=== PATIENT | female | born 1940 | race Caucasian/White ===

== ENCOUNTER → 2017-12-30 14:34 | Outpatient (CLI) | payer MEDICARE, OTHER, SELFPAY ==
[2017-12-30 18:20] LABS: CRP 9.65 mg/L (0.0-3.0)
[2018-01-01 16:09] LABS: Endomysial Antibody IgA Negative (Negative)
[2018-01-02 12:14] LABS: Immunoglobulin A 310 mg/dL (64-422); t-Transglutaminase IgA <2 U/mL (0-3)
== END ==
PROVIDERS: Family Provider Family Medicine; PCP Family Medicine; Visit Provider Internal Medicine Gastroenterology
DX: R19.7 Diarrhea, unspecified (principal)
CPT/HCPCS: 36415; 82784; 83516; 86140; 86255

== ENCOUNTER → 2017-12-31 11:38 | Outpatient (CLI) | payer MEDICARE, OTHER, SELFPAY ==
[2018-01-03 11:09] LABS: Fats, Neutral Normal (.); Fats, Total Normal (.)
== END ==
PROVIDERS: Family Provider Family Medicine; PCP Family Medicine; Visit Provider Urology
DX: R19.7 Diarrhea, unspecified (principal)
CPT/HCPCS: 82705

== ENCOUNTER 2018-02-16 02:35 | Inpatient (IN) | payer MEDICARE, OTHER, SELFPAY ==
[2018-02-16] VITALS (13 sets, daily range): BP systolic 139–204; BP diastolic 60–92; PULSE 70–111; RESP 13–24; TEMP 36.7–37.3; O2SAT 91–98; BMI 21.4; BMI 21.1; BMI 21.2
--- NOTE | 2018-02-16 02:53 | CT_ITS ---
STUDY: CT ABDOMEN AND PELVIS WITH CONTRAST REASON FOR EXAM: Female, 77 years old. Lower quadrant pain, vomiting and diarrhea. RADIATION DOSAGE (If Supplied By Facility): CTDIvol = ( 16.02 ) mGy, DLP = ( 1616.89 ) mGycm TECHNIQUE: Transaxial images were obtained from the dome of the diaphragm to the symphysis pubis without oral contrast. 75ML ml of Isovue 300 contrast was administered. Sagittal and coronal images were reconstructed. Individualized dose optimization techniques were used for this CT. COMPARISON: February 16, 2014. FINDINGS: Bilateral lower lobe bronchiectasis. The visualized portions of the heart are within normal limits. Normal liver. There are surgical clips in the gallbladder fossa consistent with a prior cholecystectomy. Normal spleen. Normal pancreas. Normal bilateral adrenal glands. Multiple renal cysts bilaterally noted previously. 2 mm nonobstructing inferior pole right renal calculus. Normal visualized stomach. Normal small intestine. Wall thickening involving a 11 cm segment of the mid sigmoid colon left hemipelvis. A few diverticuli are present. There may be mild pericolonic inflammatory changes. No significant change in 3.8 x 3.1 cm soft tissue mass region of the anus. The appendix is visualized and appears normal. There is diffuse atherosclerotic calcification of the abdominal aorta, without a demonstrated aneurysm. Normal inferior vena cava. Normal retroperitoneum. No intra-abdominal free air. Normal urinary bladder. Uterus absent compatible with hysterectomy. No adnexal masses seen. Normal abdominal wall. Posterior lumbar fusion L4-5. Grade 1 anterolisthesis L4 on L5. Degenerative changes of the lumbar spine. CT/Abdomen/Pelvis W IV Cont ONLY IMPRESSION: Acute sigmoid diverticulitis. No perforation. Recommend continued follow-up to exclude underlying mass. Bilateral renal cysts noted previously. Small nonobstructing inferior pole right renal calculus. Bilateral lower lobe bronchiectasis. Electronically Signed: Antonio Hardin MD at 5:16 EDT , Service support ,
--- NOTE | 2018-02-16 03:00 | ED.DCSUM_ITS ---
- ER Visit Summary Date of Service: 02/16/18 Chief Complaint: Nausea, vomiting and diarrhea since Friday History of Present Illness: The patient is a 77 F 3 of end-stage renal disease and receives dialysis Friday. Patient states that on Friday she started having nausea, vomiting and diarrhea. Denies fever but she has had chills. Denies dysuria. Denies melena. States she has had some left lower quadrant abdominal pain. She has previously had a prior cholecystectomy and hysterectomy. She denies any abdominal trauma. Physical Examination: Older female accompanied by her . Vital signs are stable and afebrile. H EENT exam dry mucous members. Neck nontender. Lungs clear to auscultation bilaterally. Heart regular rate rhythm no murmur. Chest nontender. Abdomen is soft nondistended normal bowel sounds. No peritoneal signs. No pulsatile mass. Her left lower quadrant and left lower abdomen is have tenderness to palpation. There is no hernias or masses. No pulsatile mass. Both the right upper right lower quadrant unremarkable. She is moving all 4 extremities. The neurovascular intact. Back exam is nontender. Neurologically she is awake alert without focal motor deficits. Test Results: EKG sinus rhythm rate 81 no acute abnormality. CBC shows elevated white count of 18.5 with an H&H of 1135. Electrolytes are unremarkable with a gap of 11 she does have end-stage renal disease dialysis her creatinine 6.51. Liver enzymes are normal. Lipase is normal. A urinalysis is ordered she has been unable to give us urine as of this time. CT abdomen and pelvis with IV contrast shows acute sigmoid diverticulitis this is consistent with where her pain is and her elevated white count. This is also consistent with her physical exam. Emergency Department Course and Treatment: Patient will be treated a liter of normal saline due to dehydration. Zofran for nausea morphine for pain. Labs will be obtained. Along with a CT of her abdomen. Treatment Plan: Multiple repeat exams. The patient is doing better after 1 L of normal saline. IV morphine and 2 dosages of Zofran. I spoke at length with her and her and the hospitalist and she will be admitted. Disposition: Admission Impression: Acute abdominal pain with nausea, vomiting and diarrhea secondary to acute sigmoid diverticulitis History of end-stage renal disease with dialysis. This note was generated with [email or web address] software. It may contain incorrect words, spelling, and punctuation that were not noted in review of the chart prior to signing ED Disposition - Plan for ED Patient: Chief Complaint: Nausea/Vomiting/Diarrhea Referrals: Omar Short MD [Primary Care Provider] -
[2018-02-16] MEDS: 0.9% Normal Saline 1,000 ML 1000 ML IV (03:03)
[2018-02-16] MEDS: Ondansetron 4 MG/2 ML Vial IV ×3 (03:05→17:36)
[2018-02-16] MEDS: Morphine 4 MG/ML Syringe IV ×3 (03:06→22:20)
[2018-02-16 03:10] LABS: Absolute Lymphocyte Count 1.16 X10^3/ul (0.83-4.51); Absolute Neutrophil Count 15.9 X10^3/uL (2.0-7.7); Basophil# 0.04 X10^3/uL; Basophil% 0.2 % (0-1); Eosinophil# 0.23 X10^3/uL; Eosinophils% 1.2 % (0-5); Hematocrit 35.3 % (37-47); Hemoglobin 11.5 g/dl (12.0-15.0); Lymphocyte # 1.16 X10^3/ul (4.0); Lymphocyte % 6.3 % (19-41); Mean Corp Hgb Conc 32.6 g/gl (32-36); Mean Corpuscular Hgb 33.8 pg (27.0-32.0); Mean Corpuscular Volume 103.8 fL (81-99); Mean Platelet Vol. 9.5 fl (6.2-12.0); Neutrophil # 15.87 X10^3/uL (2.7-7.7); Platelet Count 168 K/mm3 (150-450); RBC Distribution Width CV 14.4 % (11.6-14.6); RBC Distribution Width SD 53.6 fl (35.1-43.9); White Blood Count 18.5 K/mm3 (4.4-11.0)
[2018-02-16 03:17] LABS: POSITIVE COUNT NO; POSITIVE DIFFERENTIAL NO; POSITIVE MORPHOLOGY NO
[2018-02-16 03:19] LABS: BUN 57 mg/dL (7-18); Creatinine, Serum 6.51 mg/dL (0.55-1.02); Estimated Creatinine Clearance 7.04 ml/min; Glucose 124 mg/dL (74-106)
[2018-02-16 03:20] LABS: AST(SGOT) 12 U/L (15-37); Alanine Aminotransfer ALT/SGPT 8 U/L (13-56); Albumin, Serum 2.7 g/dL (3.2-5.0); Alkaline Phosphatase 64 U/L (45-117); Anion Gap 11 (5-15); BUN/Creat Ratio 8.8 RATIO (10-20); Bilirubin, Direct 0.09 mg/dL (0.00-0.30); Calcium,Total 8.9 mg/dL (8.5-10.1); Chloride 103 mmol/L (98-107); EST Glomerular Filtration Rate 7 mL/min (>60); Est Glom Filt Rate - Afr Amer 8 mL/min (>60); Globulin 3.8 g/dL (2.2-4.2); Lipase 42 U/L (73-393); Potassium 4.9 mmol/L (3.5-5.1); Protein, Total 6.5 g/dL (6.4-8.2); Sodium Level 140 mmol/L (136-145)
--- NOTE | 2018-02-16 04:36 | EKG12_ITS ---
Test Reason : NAUSEA/VOMITING Blood Pressure : / mmHG Vent. Rate : 081 BPM Atrial Rate : 081 BPM P-R Int : 200 ms QRS Dur : 098 ms QT Int : 376 ms P-R-T Axes : 027 -25 070 degrees QTc Int : 436 ms Normal sinus rhythm Normal ECG Confirmed by BUTCH JEAN, MARILYN ([id number]), technical writer and editor EMILY NUNEZ ([id number] on 02/18/2018 4:00:27 PM Referred By: CARLENE Confirmed By:MARILYN RAE MD
[2018-02-16] MEDS: Ciprofloxacin 400 MG/200 ML BAG 200 MG IV (05:39)
--- NOTE | 2018-02-16 06:02 | HP.PCM_ITS ---
Problem List (1) Diverticulitis Status: Acute (2) Diarrhea Status: Acute (3) ESRD (end stage renal disease) Status: Acute History of Present Illness Date of Admission: 02/16/18 Chief Complaint: Diverticulitis The patient is a 77 year old female w/ h/o HTN and ESRD, on HD MWF admitted for diverticulitis. She was started on antibiotic in the last several days. She developed diarrhea following the antibiotic use. Nothing made the diarrhea better or worse. She would have multiple BMs a day. No melena or bright red blood per rectum. She would also have left lower quadrant abdominal pain. Alexander is sharp and constant. Pain is intermittent and started yesterday. Pain would last for hours. She developed nausea and vomiting. She is unable to keep anything down in the past few hours. She came to the ED for further evaluation. Past Medical History Allergies sulfamethoxazole [From Bactrim] Allergy (Verified 02/16/18 02:36) Swelling trimethoprim [From Bactrim] Allergy (Verified 02/16/18 02:36) Swelling Sulfa (Sulfonamide Antibiotics) Adverse Reaction (Verified 02/16/14 09:47) Angioedema Home Medications: Ambulatory Orders Medication Instructions Recorded Allopurinol [Zyloprim] 150 mg PO DAILY 02/16/14 Amlodipine [Norvasc] 10 mg PO DAILY 02/16/14 Aspirin 81 mg PO DAILY 02/16/14 B Complex W-C No.20/Folic Acid 1 mg PO MOWEFR 02/16/14 [Nephrocaps Softgel] Irbesartan [Avapro] 300 mg PO DAILY 02/16/14 Magnesium 64 mg PO DAILY 02/16/14 Metoprolol Tartrate [Lopressor 100 mg PO BID 02/16/14 (Beta Tacho)] Rosuvastatin Calcium [Crestor] 10 mg PO DAILY 02/16/14 Sevelamer Carbonate [Renvela] 0.8 gm PO TID 02/16/14 predniSONE tablet 5 mg PO DAILY 02/16/14 Carvedilol [Coreg] 25 mg PO BID 02/16/18 hydrALAZINE [Apresoline] 50 mg PO TID 02/16/18 Surgical History: cholecystectomy, hysterectomy, - [employer] History: No pertinent [employer] history Lives: Spouse/ Significant Other Smoking Status: Never smoker Alcohol: None Drugs: None - *Family History Maternal History Items: No pertinent history Review of Systems Constitutional: Denies: Chills, Fever, Weight Change HEENT: Denies: Head Aches, Sinus Congestion, Sinus Drainage Cardiovascular: Denies: Chest Pain, Palpitations Respiratory: Denies: Cough, Shortness of breath at rest, Sputum production Gastrointestinal: Reports: Abdominal Pain, Nausea, Vomiting Genitourinary: Denies: Dysuria Musculoskeletal: Denies: Joint Pain, Joint Tenderness Skin: Denies: Rash, Wounds Neurological: Denies: Numbness, Tingling, Focal weakness Psychiatric: Denies: Anxiety, Depression, Homicidal Ideations, Suicidal Ideations Hematologic/ Lymphatic: Denies: Easy Bruising, Easy Bleeding VTE Information - Inpt Only VTE Present on Admission: No VTE Mechan Device Prophylaxis: SCD's VTE Pharm Prophylaxis ordered?: Yes Patient Problems: Active and Suspected Problems Diverticulitis (Acute) Diarrhea (Acute) ESRD (end stage renal disease) (Acute) - Physical Exam General: Alert, Oriented x3, Cooperative HEENT: Atraumatic, PERRLA, EOMI, Normocephalic Neck: Supple, No JVD, Negative Carotid Bruits Lungs: Clear to auscultation, Normal air movement Cardiovascular: Regular rate, No murmurs Abdomen: Bowel Sounds Present, Soft, Non Tender Extremities: No edema, Capillary Refill Less than 3 Seconds Skin: No rashes, No breakdown Musculoskeletal: No Tenderness to Palpation of Joints or Extremities Neurological: Cranial nerves II-XII grossly intact Psych/Mental Status: Normal Affect, Appropriate Vital Signs Temp Pulse Resp BP Pulse Ox 98.8 F 83 24 H 174/73 H 96 02/16/18 02:36 02/16/18 05:32 02/16/18 05:32 02/16/18 05:32 02/16/18 05:32 Oxygen Delivery Method Room Air Weight: 62 kg Body Mass Index (BMI) 21.4 Laboratory Tests Past 24 Hrs 02/16/18 02/16/18 02:45 02:45 WBC 18.5 H RBC 3.40 L Hgb 11.5 L Hct 35.3 L MCV 103.8 H MCH 33.8 H MCHC 32.6 RDW 14.4 RDW Differential 53.6 H Plt Count 168 MPV 9.5 Immature Gran % (Auto) 0.300 Neut % (Auto) 86.0 H Lymph % (Auto) 6.3 L [place] % (Auto) 6.0 Eos % (Auto) 1.2 Baso % (Auto) 0.2 Absolute Neuts (auto) 15.9 H Absolute Lymphs (auto) 1.16 Total Counted Not Reportable Sodium 140 Potassium 4.9 Chloride 103 Carbon Dioxide 26.0 Anion Gap 11 BUN 57 H Creatinine 6.51 H Estim Creat Clear Calc 7.04 Est GFR (MDRD) Af Amer 8 L Est GFR (MDRD) Non-Af 7 L BUN/Creatinine Ratio 8.8 L Glucose 124 H Calcium 8.9 Total Bilirubin 0.30 Direct Bilirubin 0.09 AST 12 L ALT 8 L Alkaline Phosphatase 64 Total Protein 6.5 Albumin 2.7 L Globulin 3.8 Lipase 42 L Assessment/Plan All Active Problems Diverticulitis (Acute) Diarrhea (Acute) ESRD (end stage renal disease) (Acute) 77 year old female w/ h/o HTN and ESRD, on HD MWF admitted for diverticulitis. 1) Diverticulitis: Will start cipro and flaygl Will get C. diff. Pt is HD pt. Hold off on hydration. 2) ESRD: HD MWF. She gets HD MWF. Will consult renal for possible HD. 3) Diarrhea: C. diff pending. Monitor.. 4) Prophylaxis: SCD / heparin.
[2018-02-16] MEDS: predniSONE 5 MG Tablet PO (09:27)
[2018-02-16] MEDS: amLODIPine 10 MG Tablet PO (09:27)
[2018-02-16] MEDS: Magnesium Oxide 400 MG Tablet PO (09:27)
[2018-02-16] MEDS: hydrALAZINE 50 MG Tablet PO ×3 (09:27→22:14)
[2018-02-16] MEDS: Carvedilol 25 MG Tablet PO ×2 (09:29→22:13)
[2018-02-16] MEDS: Aspirin 81 MG TAB.CHEW PO (09:29)
[2018-02-16 10:22] LABS: Mucous, Urine 0 SEEN /hpf (<or=2+); Red Blood Cells-Urine 0 SEEN /hpf (0-5)
[2018-02-16] MEDS: Folic Acid/Vitamin B Comp W-C 1 Capsule 1 CAP PO (10:28)
[2018-02-16] MEDS: Losartan Potassium 100 MG Tablet PO (10:28)
[2018-02-16 10:31] LABS: Color, Urine Straw (Yellow); Glucose, Dipstick 100 mg/dl (Normal); Ketone-Dipstick Negative (Negative); Leukocyte Esterase-Dipstick Negative /ul (Negative); Nitrite-Dipstick Negative (Negative); Occult Blood-Urine 25 /ul (Negative); Protein-Dipstick 100 mg/dl (Negative); Urine Bilirubin Dipstick Negative (Negative); Urine Clarity Clear (Clear); Urine Urobilinogen Normal (Normal)
[2018-02-16 10:42] LABS: Squamous Epithelial Cells - UA 0-5 SEEN /hpf (5-10); White Blood Cells 0-5 SEEN /hpf (0-5)
[2018-02-16 10:43] LABS: Bacteria 1+ /hpf (None Seen)
--- NOTE | 2018-02-16 11:08 | CASEMGMT ---
See RN CM Assessment Link. DC Plan: Home -Pt states she is independent at home. She and her live in [place] from JUN to December. Will be in [facility] until June. -No new needs identified. Steph MEDRANO RN ACM
[2018-02-16] MEDS: Acetaminophen 500 MG Tablet 1000 MG PO (13:57)
--- NOTE | 2018-02-16 19:12 | PCM.CONS.R ---
Problem List (1) ESRD (end stage renal disease) Status: Acute Consultation - Renal 02/16/18 PCP/ Referring MD: Requesting physician: Dr Godfrey Primary care physician: Omar Short MD Reason for Consultation:: ESRD - History of Present Illness History of Present Illness: The patient is a 77 year old F presented with LLQ abdominal pain, nausea, vomtings and diarrhea. diagnosed with diverticulitis. abx started. currently feels better - Allergies Allergies: Allergies hydrocodone Allergy (Verified 02/16/18 10:32) deathly ill sulfamethoxazole [From Bactrim] Allergy (Verified 02/16/18 02:36) Swelling trimethoprim [From Bactrim] Allergy (Verified 02/16/18 02:36) Swelling Sulfa (Sulfonamide Antibiotics) Adverse Reaction (Verified 02/16/14 09:47) Angioedema - Current Medications Current Medications: Current Medications Acetaminophen (Tylenol) 1,000 mg PO Q6H PRN PRN PRN Reason: PAIN Allopurinol (Zyloprim) 150 mg PO DAILYCM [facility] Last Admin: 02/16/18 10:28 Dose: Not Given Amlodipine Besylate (Norvasc) 10 mg PO DAILY [facility] Last Admin: 02/16/18 09:27 Dose: 10 mg Aspirin (Aspirin, Baby) 81 mg PO DAILY@0800 [facility] Last Admin: 02/16/18 09:29 Dose: 81 mg Atorvastatin Calcium (Lipitor) 20 mg PO QHS [facility] Carvedilol (Coreg) 25 mg PO BID [facility] Last Admin: 02/16/18 09:29 Dose: 25 mg Hydralazine HCl (Apresoline) 50 mg PO TID [facility] Last Admin: 02/16/18 16:37 Dose: 50 mg Ciprofloxacin (Cipro) 400 mg in 200 mls @ 200 mls/hr IV Q24 [facility] Metronidazole (Flagyl) 500 mg in 100 mls @ 100 mls/hr IV Q8 [facility] Last Admin: 02/16/18 16:28 Dose: 100 mls/hr Losartan Potassium (Cozaar) 100 mg PO DAILY [facility] Last Admin: 02/16/18 10:28 Dose: 100 mg Magnesium Hydroxide (Milk Of Magnesia) 30 ml PO DAILY PRN PRN PRN Reason: Constipation Magnesium Oxide (Mag-Ox 400) 400 mg PO DAILY [facility] Last Admin: 02/16/18 09:27 Dose: 400 mg Morphine Sulfate () 2 - 4 mg IV Q4H PRN PRN PRN Reason: SEVERE PAIN (6-10/10) Morphine Sulfate () 2 - 4 mg IV Q4H PRN PRN PRN Reason: SEVERE PAIN (6-10/10) Last Admin: 02/16/18 17:36 Dose: 4 mg Multivit/Ca Carb/B Cmplx/FA/Prenat (Nephrocaps, Renaphro) 1 capsule PO MOWEFR [facility] Last Admin: 02/16/18 10:28 Dose: 1 capsule Nutritional Formula (Nepro Carb Steady) 120 ml PO 4X/DAY [facility] Last Admin: 02/16/18 17:43 Dose: Not Given Ondansetron HCl (Zofran) 4 mg IV Q6H PRN PRN PRN Reason: NAUSEA Last Admin: 02/16/18 17:36 Dose: 4 mg Oxycodone HCl (Oxyir) 5 - 10 mg PO Q4H PRN PRN PRN Reason: SEVERE PAIN (6-10/10) [facility] Admin: 02/16/18 09:27 Dose: 5 mg Promethazine HCl (Phenergan) 12.5 mg IV Q4H PRN PRN PRN Reason: NAUSEA/VOMITING Sevelamer Carbonate (Renvela) 800 mg PO TID [facility] Last Admin: 02/16/18 16:30 Dose: Not Given Sodium Chloride () 5 - 30 ml IV UD PRN PRN Reason: SALINE FLUSH - Past Surgical History Surgical History: cholecystectomy, hysterectomy, - - Social History Smoking Status: Former smoker Alcohol: None Drugs: None - Family History Maternal History Items: No pertinent history Review of Systems Constitutional: Denies: Chills, Fever, Weight Change Patient Problems: Active and Suspected Problems Diverticulitis (Acute) Diarrhea (Acute) ESRD (end stage renal disease) (Acute) - Physical Exam General: Alert, Oriented x3, Cooperative HEENT: Atraumatic, PERRLA, EOMI, Normocephalic Neck: Supple, No JVD, Negative Carotid Bruits Lungs: Clear to auscultation, Normal air movement Cardiovascular: Regular rate, No murmurs Abdomen: Bowel Sounds Present, Soft, Non Tender Extremities: No edema, Capillary Refill Less than 3 Seconds Skin: No rashes, No breakdown Musculoskeletal: No Tenderness to Palpation of Joints or Extremities Neurological: Cranial nerves II-XII grossly intact Psych/Mental Status: Normal Affect, Appropriate Vital Signs Temp Pulse Resp BP Pulse Ox 98.4 F 111 H 18 139/76 H 92 02/16/18 16:41 02/16/18 16:41 02/16/18 16:41 02/16/18 16:41 02/16/18 16:41 Oxygen Delivery Method Room Air Weight: 61.5 kg Body Mass Index (BMI) 21.2 Intake and Output for Last 24 Hours 02/14/18 02/15/18 02/16/18 23:59 23:59 23:59 Intake Total 302 / 302 Output Total 300 / 300 Balance 2 / 2 Laboratory Tests Past 24 Hrs 02/16/18 10:15 Urine Color Straw Urine Clarity Clear Urine pH 8.0 Ur Specific [place] 1.010 Urine Protein 100 H Urine Glucose (UA) 100 H Urine Ketones Negative Urine Occult Blood 25 H Urine Nitrite Negative Urine Bilirubin Negative Urine Urobilinogen Normal Ur Leukocyte Esterase Negative Urine RBC 0 SEEN Urine WBC 0-5 SEEN Ur Squamous Epith Cells 0-5 SEEN Urine Bacteria 1+ Urine Mucus 0 SEEN Assessment/Plan All Active Problems Diverticulitis (Acute) Diarrhea (Acute) ESRD (end stage renal disease) (Acute) ESRD. HTN dialysis today. see orders/ flowsheets. usuall runs even diverticulitis. abx as per primary
--- NOTE | 2018-02-16 20:34 | PN_ITS ---
Progress Note The patient is a 77-year-old female admitted to the hospital early this a.m. with a diagnosis of diverticulitis. Past medical history is significant for end -stage renal disease and she is on hemodialysis. She also has a wound on the right index finger which has been present for a week and required stitches. She has an appointment with an orthopedic doctor in 1 week to remove the stitches. CT scan of the abdomen and pelvis done in the emergency room showed acute sigmoid diverticulitis with no perforation. White blood cell count was elevated at 18.5 and there is a left shift. Electrolytes were within normal limits. Hemoglobin is 11.5 and platelets were within normal limits. No lactic acid was checked at admission. Blood cultures were sent. She was started on Cipro and Flagyl by the admitting hospitalist. she has had no diarrhea since admission. she is having nausea. she has been seeing Dr. De Leon recently for diarrhea and he started her on 6 Pepto-Bismol tablets daily and 6 Imodium tablets daily. She states the diarrhea resolved but then she became constipated and has recently had to strain to have a bowel movement. She decreased the dose of the Pepto-Bismol and the Imodium and then started having loose stools again. She has not been on any antibiotics recently. She denies any history of Clostridium difficile enterocolitis. Abdomen is soft, ND and there are nromal BS's. She has pain with palpation of the LLQ and winced when I pressed on the abdomen in that area. there were no masses. Lungs are CTA Heart - RRR withiout rub or gallop. no edema Continue the Cipro and the Flagyl. BP is stable so I see no need for stress dose steroids at this time.
[2018-02-16] MEDS: SEVELAMER CARBONATE 800 MG TABLET PO (22:15)
[2018-02-16] MEDS: Atorvastatin Calcium 20 MG Tablet PO (22:15)
[2018-02-17] VITALS (12 sets, daily range): BP systolic 147–170; BP diastolic 69–78; PULSE 63–86; RESP 18; TEMP 36.3–36.9; O2SAT 94–99
[2018-02-17] MEDS: Morphine 4 MG/ML Syringe IV (04:01)
[2018-02-17] MEDS: hydrALAZINE 50 MG Tablet PO ×3 (06:00→22:49)
[2018-02-17 06:06] LABS: Absolute Lymphocyte Count 1.04 X10^3/ul (0.83-4.51); Absolute Neutrophil Count 9.9 X10^3/uL (2.0-7.7); Basophil# 0.02 X10^3/uL; Basophil% 0.2 % (0-1); Eosinophil# 0.36 X10^3/uL; Hemoglobin 9.1 g/dl (12.0-15.0); Lymphocyte # 1.04 X10^3/ul (4.0); Lymphocyte % 8.5 % (19-41); Mean Corp Hgb Conc 31.4 g/gl (32-36); Mean Corpuscular Hgb 33.1 pg (27.0-32.0); Mean Corpuscular Volume 105.5 fL (81-99); Mean Platelet Vol. 9.8 fl (6.2-12.0); Monocyte# 0.84 X10^3/uL; Monocyte% 6.9 % (0-10); Neutrophil # 9.91 X10^3/uL (2.7-7.7); Neutrophil % 81.2 % (47-70); Platelet Count 140 K/mm3 (150-450); RBC Distribution Width CV 14.4 % (11.6-14.6); RBC Distribution Width SD 53.6 fl (35.1-43.9); Red Blood Count 2.75 M/mm3 (4.2-5.4); White Blood Count 12.2 K/mm3 (4.4-11.0)
[2018-02-17 06:07] LABS: POSITIVE COUNT NO; POSITIVE DIFFERENTIAL NO; POSITIVE MORPHOLOGY NO
[2018-02-17 06:18] LABS: Anion Gap 9 (5-15); BUN 29 mg/dL (7-18); BUN/Creat Ratio 6.7 RATIO (10-20); Calcium,Total 8.1 mg/dL (8.5-10.1); Chloride 102 mmol/L (98-107); EST Glomerular Filtration Rate 11 mL/min (>60); Est Glom Filt Rate - Afr Amer 13 mL/min (>60); Estimated Creatinine Clearance 10.64 ml/min; Glucose 75 mg/dL (74-106); Potassium 4.1 mmol/L (3.5-5.1); Sodium Level 139 mmol/L (136-145)
[2018-02-17] MEDS: oxyCODONE 5 MG Tablet PO ×2 (07:46→16:27)
[2018-02-17] MEDS: Aspirin 81 MG TAB.CHEW PO (07:47)
[2018-02-17] MEDS: SEVELAMER CARBONATE 800 MG TABLET PO ×2 (07:47→16:33)
[2018-02-17] MEDS: predniSONE 5 MG Tablet PO (07:48)
[2018-02-17] MEDS: Allopurinol 300 MG Tablet 150 MG PO (07:48)
[2018-02-17] MEDS: 0.9% NaCl Peripheral Flush Adult/Peds IV ×2 (09:35→16:28)
[2018-02-17] MEDS: Ondansetron 4 MG/2 ML Vial IV ×2 (09:35→16:28)
[2018-02-17] MEDS: Losartan Potassium 100 MG Tablet PO (09:38)
[2018-02-17] MEDS: Magnesium Oxide 400 MG Tablet PO (09:38)
[2018-02-17] MEDS: Carvedilol 25 MG Tablet PO ×2 (09:40→22:50)
[2018-02-17] MEDS: amLODIPine 10 MG Tablet PO (09:40)
[2018-02-17] MEDS: Ciprofloxacin 400 MG/200 ML BAG 200 MG IV (09:43)
[2018-02-17] MEDS: Morphine 2 MG/ML Syringe IV (10:18)
--- NOTE | 2018-02-17 19:49 | PCM.PROGNOTE ---
Patient Problems: Active and Suspected Problems Diverticulitis (Acute) Diarrhea (Acute) ESRD (end stage renal disease) (Acute) Subjective: Patient was seen and examined earlier today at approximately 8 AM. She reported no nausea after taking her oxycodone and the abdominal pain improved with oxycodone. She was rather sleepy. No diarrhea. Afebrile since admission. Vital signs are stable. Systolic blood pressure is mildly increased. Fluid balance since admission is +1524 All lab was personally reviewed. White blood cell count today is 12.2, down from 18.5 at admission. Left shift Persists. Electrolytes are within normal limits. - Physical Exam General: Alert, Oriented x3, Cooperative Oral: Moist Mucosa Neck: Supple Lungs: Clear to auscultation Cardiovascular: Regular rate, Regular Rhythm, Normal S1, Normal S2, No Gallop Abdomen: Bowel Sounds Present, Soft, Non-Distended, Tender - in the LLQ only Extremities: No clubbing, No cyanosis, No edema, No Calf Tenderness Skin: No rashes Psych/Mental Status: Normal Affect, Appropriate Vital Signs Temp Pulse Resp BP Pulse Ox 97.8 F 69 18 148/78 H 98 02/17/18 15:28 02/17/18 18:00 02/17/18 15:28 02/17/18 15:28 02/17/18 15:28 Oxygen Delivery Method Room Air Weight: 135 lb 9.349 oz Body Mass Index (BMI) 21.2 Intake and Output for Last 24 Hours 02/15/18 02/16/18 02/17/18 23:59 23:59 23:59 Intake Total 302 / 302 1872 / 1872 Output Total 300 / 300 350 / 350 Balance 2 / 1522 / 1522 Laboratory Tests Past 24 Hrs 02/17/18 02/17/18 05:20 05:20 WBC 12.2 H RBC 2.75 L Hgb 9.1 L Hct 29.0 L MCV 105.5 H MCH 33.1 H MCHC 31.4 L RDW 14.4 RDW Differential 53.6 H Plt Count 140 L MPV 9.8 Immature Gran % (Auto) 0.200 Neut % (Auto) 81.2 H Lymph % (Auto) 8.5 L [place] % (Auto) 6.9 Eos % (Auto) 3.0 Baso % (Auto) 0.2 Absolute Neuts (auto) 9.9 H Absolute Lymphs (auto) 1.04 Total Counted Not Reportable Sodium 139 Potassium 4.1 Chloride 102 Carbon Dioxide 28.0 Anion Gap 9 BUN 29 H Creatinine 4.30 H Estim Creat Clear Calc 10.64 Est GFR (MDRD) Af Amer 13 L Est GFR (MDRD) Non-Af 11 L BUN/Creatinine Ratio 6.7 L Glucose 75 Calcium 8.1 L Medical Necessity - Tobacco Use Smoking Status: Former smoker Assessment/Plan All Active Problems Diverticulitis (Acute) Diarrhea (Acute) ESRD (end stage renal disease) (Acute) Impressions 1. Diverticulitis 2. End-stage renal disease on hemodialysis 3. Hypertension 4. Hyperuricemia 5. Hyperlipidemia 6. Chronic steroid therapy with prednisone 5 mg p.o. daily 7. Sjogren's syndrome Continue Flagyl and Cipro. Recheck CBC in the a.m. Code Visit Inpatient E&M: 89882 Subs Hosp L2
[2018-02-17] MEDS: proMETHazine 25 MG/ML Syringe 12.5 MG IV (20:54)
[2018-02-17] MEDS: Atorvastatin Calcium 20 MG Tablet PO (22:50)
[2018-02-18] VITALS (10 sets, daily range): BP systolic 149–191; BP diastolic 64–82; PULSE 66–81; RESP 18; TEMP 36.8–37.1; O2SAT 95
[2018-02-18] MEDS: oxyCODONE 5 MG Tablet PO (06:21)
[2018-02-18] MEDS: hydrALAZINE 50 MG Tablet PO ×3 (06:29→21:31)
[2018-02-18 08:20] LABS: Absolute Lymphocyte Count 1.01 X10^3/ul (0.83-4.51); Absolute Neutrophil Count 7.4 X10^3/uL (2.0-7.7); Basophil# 0.02 X10^3/uL; Basophil% 0.2 % (0-1); Eosinophil# 0.33 X10^3/uL; Eosinophils% 3.4 % (0-5); Hematocrit 29.2 % (37-47); Hemoglobin 9.8 g/dl (12.0-15.0); Lymphocyte # 1.01 X10^3/ul (4.0); Lymphocyte % 10.3 % (19-41); Mean Corp Hgb Conc 33.6 g/gl (32-36); Mean Corpuscular Volume 101.4 fL (81-99); Mean Platelet Vol. 9.7 fl (6.2-12.0); Monocyte% 10.2 % (0-10); Neutrophil # 7.43 X10^3/uL (2.7-7.7); Neutrophil % 75.7 % (47-70); Platelet Count 143 K/mm3 (150-450); RBC Distribution Width CV 14.6 % (11.6-14.6); RBC Distribution Width SD 54.3 fl (35.1-43.9); Red Blood Count 2.88 M/mm3 (4.2-5.4); White Blood Count 9.8 K/mm3 (4.4-11.0)
[2018-02-18 08:21] LABS: Differential Indicated SCAN CRITERIA MET; POSITIVE COUNT YES; POSITIVE DIFFERENTIAL NO; POSITIVE MORPHOLOGY NO
[2018-02-18 08:59] LABS: Hypochromasia 1+; Platelet Estimate ADEQUATE (ADEQ)
[2018-02-18] MEDS: Ciprofloxacin 400 MG/200 ML BAG 200 MG IV (11:39)
[2018-02-18] MEDS: Acetaminophen 500 MG Tablet 1000 MG PO (11:43)
[2018-02-18] MEDS: Allopurinol 300 MG Tablet 150 MG PO (11:45)
[2018-02-18] MEDS: Aspirin 81 MG TAB.CHEW PO (11:45)
[2018-02-18] MEDS: Folic Acid/Vitamin B Comp W-C 1 Capsule 1 CAP PO (11:45)
[2018-02-18] MEDS: predniSONE 5 MG Tablet PO (11:45)
[2018-02-18] MEDS: Magnesium Oxide 400 MG Tablet PO (11:45)
[2018-02-18] MEDS: Carvedilol 25 MG Tablet PO ×2 (11:46→21:32)
[2018-02-18] MEDS: amLODIPine 10 MG Tablet PO (11:46)
[2018-02-18] MEDS: 0.9% NaCl Peripheral Flush Adult/Peds IV (11:51)
[2018-02-18] MEDS: Losartan Potassium 100 MG Tablet PO (14:24)
--- NOTE | 2018-02-18 16:26 | PCM.PN.BLA ---
Progress Note patient is seen on dialysis today no new complaints LLQ pain better tolerating diet Bp is high, fluctuating. no changes made
[2018-02-18] MEDS: SEVELAMER CARBONATE 800 MG TABLET PO (17:24)
--- NOTE | 2018-02-18 20:57 | PN_ITS ---
Subjective: Afebrile since admission. Vital signs are stable-systolic blood pressure is increased. She is 95% saturated on room air. No emesis today. She continues to c/o nausea....I believe it is associated with the narcotics. She has less abdominal pain today. She had phenergan for nausea last night and it was more effective than the zofran. All lab was personally reviewed. The white blood cell count is normal at 9.8 today with 76% neutrophils. Hemoglobin is stable at 9.8 and the platelets are 143,000 which is stable. Objective: PHYSICAL EXAM: GENERAL: alert, oriented X 3, Cooperative, NAD but with many complaints ORAL: moist mucosa, no mucosal lesions NECK: No JVD, supple, trachea midline LUNGS: CTA, symmetric chest expansion HEART: RRR, Normal S1 and S2, no rub, no gallop ABDOMEN: soft, tender to palpation in the LLQ but with no guarding today, ND, BS present, EXTREMITIES: no edema, no cyanosis, no calf tenderness SKIN: No rashes, no breakdown NEUROLOGIC: no focal neurologic deficits PSYCH: appropriate, normal affect, pleasant - Physical Exam Vital Signs Temp Pulse Resp BP Pulse Ox 98.6 F 78 18 156/64 H 95 02/18/18 14:23 02/18/18 14:31 02/18/18 14:23 02/18/18 14:23 02/18/18 14:23 Oxygen Delivery Method Room Air Weight: 135 lb 9.349 oz Body Mass Index (BMI) 21.2 Intake and Output for Last 24 Hours 02/16/18 02/17/18 02/18/18 23:59 23:59 23:59 Intake Total 302 / 302 1872 / 1872 984 / 984 Output Total 300 / 300 350 / 350 100 / 100 Balance 2 / 2 1522 / 1522 884 / 884 Laboratory Tests Past 24 Hrs 02/18/18 08:00 WBC 9.8 RBC 2.88 L Hgb 9.8 L Hct 29.2 L MCV 101.4 H MCH 34.0 H MCHC 33.6 RDW 14.6 RDW Differential 54.3 H Plt Count 143 L MPV 9.7 Immature Gran % (Auto) 0.200 Neut % (Auto) 75.7 H Lymph % (Auto) 10.3 L [place] % (Auto) 10.2 H Eos % (Auto) 3.4 Baso % (Auto) 0.2 Absolute Neuts (auto) 7.4 Absolute Lymphs (auto) 1.01 Total Counted Not Reportable Platelet Estimate ADEQUATE Hypochromasia 1+ Medical Necessity - Tobacco Use Smoking Status: Former smoker Assessment/Plan All Active Problems Nausea & vomiting (Acute) Diverticulitis (Acute) ESRD (end stage renal disease) (Acute) Impressions 1. Diverticulitis 2. End-stage renal disease on hemodialysis 3. Hypertension 4. Hyperuricemia 5. Hyperlipidemia 6. Chronic steroid therapy with prednisone 5 mg p.o. daily 7. Sjogren's syndrome Continue Flagyl and Cipro. Recheck lab in the AM DC Zofran and start Phenergan Continue IV fluids Code Visit Inpatient E&M: 67311 Subs Hosp L2
[2018-02-18] MEDS: Atorvastatin Calcium 20 MG Tablet PO (21:32)
[2018-02-19 02:24] VITALS: BP 179/81; PULSE 77; RESP 18; TEMP 37.1; O2SAT 95
[2018-02-19 06:49] VITALS: BP 171/88; PULSE 72
[2018-02-19] MEDS: hydrALAZINE 50 MG Tablet PO (06:49)
[2018-02-19 09:33] VITALS: BP 137/67; PULSE 67; RESP 18; TEMP 36.4; O2SAT 98
[2018-02-19] MEDS: Magnesium Oxide 400 MG Tablet PO (09:44)
[2018-02-19] MEDS: Ciprofloxacin 400 MG/200 ML BAG 200 MG IV (09:44)
[2018-02-19] MEDS: Allopurinol 300 MG Tablet 150 MG PO (09:44)
[2018-02-19] MEDS: Carvedilol 25 MG Tablet PO (09:45)
[2018-02-19] MEDS: Aspirin 81 MG TAB.CHEW PO (09:45)
[2018-02-19] MEDS: Losartan Potassium 100 MG Tablet PO (09:45)
[2018-02-19] MEDS: amLODIPine 10 MG Tablet PO (09:45)
[2018-02-19] MEDS: SEVELAMER CARBONATE 800 MG TABLET PO (09:45)
[2018-02-19] MEDS: predniSONE 5 MG Tablet PO (09:46)
--- NOTE | 2018-02-19 13:57 | PCM.PROGNOTE ---
Patient Problems: Active and Suspected Problems Diverticulitis (Acute) Diarrhea (Acute) ESRD (end stage renal disease) (Acute) Subjective: Day #4 antibiotics-Cipro and Flagyl Afebrile, vital signs stable. - Physical Exam Vital Signs Temp Pulse Resp BP Pulse Ox 97.5 F L 67 18 137/67 H 98 02/19/18 09:33 02/19/18 09:33 02/19/18 09:33 02/19/18 09:33 02/19/18 09:33 Oxygen Delivery Method Room Air Weight: 135 lb 9.349 oz Body Mass Index (BMI) 21.2 Intake and Output for Last 24 Hours 02/17/18 02/18/18 02/19/18 23:59 23:59 23:59 Intake Total 1872 / 1872 1335 / 1335 127 / 127 Output Total 350 / 350 100 / 100 Balance 1522 / 1522 1235 / 1235 127 / 127 Medical Necessity - Tobacco Use Smoking Status: Former smoker Assessment/Plan All Active Problems Diverticulitis (Acute) Diarrhea (Acute) ESRD (end stage renal disease) (Acute)
[2018-02-19 14:28] VITALS: BP 145/81; PULSE 72; RESP 18; TEMP 36.8; O2SAT 98
--- NOTE | 2018-02-19 15:30 | PCM.DC ---
- Discharge Diagnoses Current Active Problems: Current Active and Chronic Problems Diverticulitis (Acute) Diarrhea (Acute) ESRD (end stage renal disease) (Acute) You will use the following diet at home:: Other Your food should be the consistency of: Regular Your liquids should be the consistency of: Regular/Thin Discharge Activity: - - Activity as tolerated Call your doctor if you observe: Fever of 101 or Higher, Uncontrolled pain, - - Greater than 5 bowel movements a day, rash Additional Instructions: You will need to adjust the Pepto-Bismol and Imodium dosages to bring about 1 bowel movement every 24-48 hours. Avoid constipation which can lead to further episodes of diverticulitis. Pending Tests on Discharge: None Allergies/Adverse Reactions: Allergies hydrocodone Allergy (Verified 02/16/18 10:32) deathly ill sulfamethoxazole [From Bactrim] Allergy (Verified 02/16/18 02:36) Swelling trimethoprim [From Bactrim] Allergy (Verified 02/16/18 02:36) Swelling Sulfa (Sulfonamide Antibiotics) Adverse Reaction (Verified 02/16/14 09:47) Angioedema Medications to take at Discharge Allopurinol [Zyloprim] 150 mg PO DAILY 02/16/14 Amlodipine [Norvasc] 10 mg PO DAILY 02/16/14 Aspirin 81 mg PO DAILY 02/16/14 B Complex W-C No.20/Folic Acid [Nephrocaps Softgel] 1 mg PO MOWEFR 02/16/14 Irbesartan [Avapro] 300 mg PO DAILY 02/16/14 Magnesium 64 mg PO DAILY 02/16/14 Rosuvastatin Calcium [Crestor] 10 mg PO DAILY 02/16/14 Sevelamer Carbonate [Renvela] 0.8 gm PO TID 02/16/14 predniSONE tablet 5 mg PO DAILY 02/16/14 Carvedilol [Coreg] 25 mg PO BID 02/16/18 hydrALAZINE [Apresoline] 50 mg PO TID 02/16/18 Ciprofloxacin [Cipro] 500 mg PO DAILY #6 tab 02/19/18 Metronidazole [Flagyl] 500 mg PO Q12H #12 tab 02/19/18 The following prescriptions were given: Ciprofloxacin [Cipro] 500 mg PO DAILY #6 tab Metronidazole [Flagyl] 500 mg PO Q12H #12 tab Primary Care Physician: Omar Short MD [Primary Care Provider] - Please follow up with your Primary Care Physician in: 5-7 days Please Follow Up With: Jean Pierre De Leon MD When: as needed
--- NOTE | 2018-02-19 15:35 | PCM.DC.SUM ---
Discharge Date and Diagnosis Date of Admission: 02/16/18 Date of Discharge: 02/19/18 - Primary Discharge Diagnosis Active and Suspected Problems Diverticulitis (Acute) Nausea & vomiting (Acute) - Secondary Discharge Diagnosis Chronic Problems Anemia of chronic kidney failure (Chronic) Chronic steroid use (Chronic) Sjogrens syndrome (Chronic) Hyperuricemia (Chronic) Hyperlipidemia (Chronic) Hypertension (Chronic) Diarrhea (Chronic) End-stage renal disease on hemodialysis Hospital Course and Treatment Imaging Results: Clinical Impression(s) from Imaging Studies Abdomen/Pelvis CT 02/16/18 02:53 IMPRESSION: Acute sigmoid diverticulitis. No perforation. Recommend continued follow-up to exclude underlying mass. Bilateral renal cysts noted previously. Small nonobstructing inferior pole right renal calculus. Bilateral lower lobe bronchiectasis. Electronically Signed: Antonio Hardin MD at 5:16 EDT , Service support , ADDENDUM: 02/16/18 0523 Laboratory Tests 02/16/18 02/16/18 02/16/18 02:45 02:45 10:15 WBC 18.5 H RBC 3.40 L Hgb 11.5 L Hct 35.3 L MCV 103.8 H MCH 33.8 H MCHC 32.6 RDW 14.4 RDW Differential 53.6 H Plt Count 168 MPV 9.5 Immature Gran % (Auto) 0.300 Neut % (Auto) 86.0 H Lymph % (Auto) 6.3 L [place] % (Auto) 6.0 Eos % (Auto) 1.2 Baso % (Auto) 0.2 Absolute Neuts (auto) 15.9 H Absolute Lymphs (auto) 1.16 Total Counted Not Reportable Platelet Estimate Hypochromasia Sodium 140 Potassium 4.9 Chloride 103 Carbon Dioxide 26.0 Anion Gap 11 BUN 57 H Creatinine 6.51 H Estim Creat Clear Calc 7.04 Est GFR (MDRD) Af Amer 8 L Est GFR (MDRD) Non-Af 7 L BUN/Creatinine Ratio 8.8 L Glucose 124 H Calcium 8.9 Total Bilirubin 0.30 Direct Bilirubin 0.09 AST 12 L ALT 8 L Alkaline Phosphatase 64 Total Protein 6.5 Albumin 2.7 L Globulin 3.8 Lipase 42 L Urine Color Straw Urine Clarity Clear Urine pH 8.0 Ur Specific [place] 1.010 Urine Protein 100 H Urine Glucose (UA) 100 H Urine Ketones Negative Urine Occult Blood 25 H Urine Nitrite Negative Urine Bilirubin Negative Urine Urobilinogen Normal Ur Leukocyte Esterase Negative Urine RBC 0 SEEN Urine WBC 0-5 SEEN Ur Squamous Epith Cells 0-5 SEEN Urine Bacteria 1+ Urine Mucus 0 SEEN 02/17/18 02/17/18 02/18/18 05:20 05:20 08:00 WBC 12.2 H 9.8 RBC 2.75 L 2.88 L Hgb 9.1 L 9.8 L Hct 29.0 L 29.2 L MCV 105.5 H 101.4 H MCH 33.1 H 34.0 H MCHC 31.4 L 33.6 RDW 14.4 14.6 RDW Differential 53.6 H 54.3 H Plt Count 140 L 143 L MPV 9.8 9.7 Immature Gran % (Auto) 0.200 0.200 Neut % (Auto) 81.2 H 75.7 H Lymph % (Auto) 8.5 L 10.3 L [place] % (Auto) 6.9 10.2 H Eos % (Auto) 3.0 3.4 Baso % (Auto) 0.2 0.2 Absolute Neuts (auto) 9.9 H 7.4 Absolute Lymphs (auto) 1.04 1.01 Total Counted Not Reportable Not Reportable Platelet Estimate ADEQUATE Hypochromasia 1+ Sodium 139 Potassium 4.1 Chloride 102 Carbon Dioxide 28.0 Anion Gap 9 BUN 29 H Creatinine 4.30 H Estim Creat Clear Calc 10.64 Est GFR (MDRD) Af Amer 13 L Est GFR (MDRD) Non-Af 11 L BUN/Creatinine Ratio 6.7 L Glucose 75 Calcium 8.1 L Total Bilirubin Direct Bilirubin AST ALT Alkaline Phosphatase Total Protein Albumin Globulin Lipase Urine Color Urine Clarity Urine pH Ur Specific [place] Urine Protein Urine Glucose (UA) Urine Ketones Urine Occult Blood Urine Nitrite Urine Bilirubin Urine Urobilinogen Ur Leukocyte Esterase Urine RBC Urine WBC Ur Squamous Epith Cells Urine Bacteria Urine Mucus Dr. Woods-nephrology Operations: None Procedures: None Summary of Care Provided: The patient is a 77-year-old female admitted to the hospital on 02/16/2018 with a diagnosis of diverticulitis. Past medical history is significant for end-stage renal disease on hemodialysis, Sjogren's syndrome, hyperuricemia, hypertension, hyperlipidemia and chronic steroid therapy. She also had a wound on the right index finger which had been present for a week and required stitches. She has an appointment with an orthopedic doctor in 1 week to remove the stitches. CT scan of the abdomen and pelvis done in the emergency room showed acute sigmoid diverticulitis with no perforation. White blood cell count was elevated at 18.5 and there was a left shift. Electrolytes were within normal limits. Hemoglobin was 11.5 and platelets were within normal limits. No lactic acid was checked at admission. Blood cultures were sent. She was started on Cipro and Flagyl by the admitting hospitalist. Zofran was ordered for nausea. She was afebrile for the duration of the hospital admission. Zofran was not effective in controlling nausea/vomiting and she was transitioned to Phenergan with better results. White blood cell count decreased from 18.5 at admission to 9.8 prior to discharge. Hemoglobin was stable at 9.8 at the time of her discharge. She was seen in consultation by Dr. Woods who arranged dialysis while in the hospital. On 02/19 she was afebrile with stable vital signs. She was 98% saturated on room air and denied nausea. Her pain had decreased significantly in the left lower quadrant. She tolerated an advance in her diet and was discharged home on 02/19/2018. Prescriptions were given for Cipro 500 mg daily, #6 tablets, and Flagyl 500 mg every 12 hours, #12 tablets. He will follow-up with Dr. De Leon as needed. She will follow-up with her primary care physician, Dr. Short in 5-7 days and will resume her regular dialysis schedule GENERAL: alert, oriented X 3, Cooperative, NAD but with many complaints and wanting to go home ORAL: moist mucosa, no mucosal lesions NECK: No JVD, supple, trachea midline LUNGS: CTA, symmetric chest expansion HEART: RRR, Normal S1 and S2, no rub, no gallop ABDOMEN: soft, tender to palpation in the LLQ but with no guarding and the pain is significantly decreased since admission, ND, BS present, EXTREMITIES: no edema, no cyanosis, no calf tenderness SKIN: No rashes, no breakdown NEUROLOGIC: no focal neurologic deficits PSYCH: appropriate, normal affect, pleasant Discharge Activity: - - Activity as tolerated Call your doctor if you observe: Fever of 101 or Higher, Uncontrolled pain, - - Greater than 5 bowel movements a day, rash Home Medications: Medications to take at Discharge Allopurinol [Zyloprim] 150 mg PO DAILY 02/16/14 Amlodipine [Norvasc] 10 mg PO DAILY 02/16/14 Aspirin 81 mg PO DAILY 02/16/14 B Complex W-C No.20/Folic Acid [Nephrocaps Softgel] 1 mg PO MOWEFR 02/16/14 Irbesartan [Avapro] 300 mg PO DAILY 02/16/14 Magnesium 64 mg PO DAILY 02/16/14 Rosuvastatin Calcium [Crestor] 10 mg PO DAILY 02/16/14 Sevelamer Carbonate [Renvela] 0.8 gm PO TID 02/16/14 predniSONE tablet 5 mg PO DAILY 02/16/14 Carvedilol [Coreg] 25 mg PO BID 02/16/18 hydrALAZINE [Apresoline] 50 mg PO TID 02/16/18 Ciprofloxacin [Cipro] 500 mg PO DAILY #6 tab 02/19/18 Metronidazole [Flagyl] 500 mg PO Q12H #12 tab 02/19/18 Following Prescrptions Were Given to Patient: Ciprofloxacin [Cipro] 500 mg PO DAILY #6 tab Metronidazole [Flagyl] 500 mg PO Q12H #12 tab Primary Care Physician: Omar Short MD [Primary Care Provider] - Please follow up with your Primary Care Physician in: 5-7 days Please Follow Up With: Jean Pierre De Leon MD When: as needed Disposition: Home Minutes spent on discharge:: 30 Patient Condition:: Good Medical Necessity - Tobacco Use Smoking Status: Former smoker Meaningful Use Info Meaningful Use Diagnoses (Choose all that apply): None applicable Code Visit Inpatient E&M: 06949 Disch Hosp
--- NOTE | 2018-02-20 15:55 | CASEMGMT ---
MANI MORRISON Discharge Follow-up Phone Call: MELISSA: [place]: 3 Call Date: 02/20/18 Discharge Date: 02/19/18 Time of Call: 1555 Duration:1 min Admitting Diagnosis: Diverticulitis MANI MORRISON attempted to complete follow-up phone call after recent hospitalization. MANI MORRISON left voice message with return contact information.
== END 2018-02-19 16:24 | disposition home or self-care (01) | DRG 391 ==
LOC: ED 03:13 → MS3 06:01
PROVIDERS: Admitting Provider Internal Medicine; Emergency Provider Emergency Medicine; Family Provider Family Medicine; PCP Family Medicine; Visit Provider Internal Medicine
DX: K57.32 Diverticulitis of large intestine without perforation or abscess without bleeding (principal); N18.6 End stage renal disease; I12.0 Hypertensive chronic kidney disease with stage 5 chronic kidney disease or end stage renal disease; Z99.2 Dependence on renal dialysis; M35.00 Sjogren syndrome, unspecified; Z79.52 Long term (current) use of systemic steroids; E78.5 Hyperlipidemia, unspecified; E79.0 Hyperuricemia without signs of inflammatory arthritis and tophaceous disease
CPT/HCPCS: 36415; 74177; 80048; 80076; 81001; 83690; 85025; 90937; 93005; 99283; J7030; J7050; Q9967; A4216; G0257; J0744; J2405

== ENCOUNTER 2018-03-19 14:51 | Outpatient (RCR) | payer MEDICARE, OTHER, SELFPAY ==
--- NOTE | 2018-03-19 15:40 | HP.OTEVAL ---
Patient's Visit Information FANY MEREDITH is a 77 year old F, referred to Occupational Therapy by JESUS PARRY, with a diagnosis of right IF prox. phalx fx. Date of Evaluation: 03/19/18 Occupational Therapist: Ann-Marie Beach, MECHER/Jose A, CHT - Subjective Subjective: PT states on February 03 she had her right IF crushed in a door jam. Pt underwent ORIF on January. Pt states she got her splint off last week and noticed her finger wasn't moving as well. Pt would like to get a HEP to gain ROM of right IF to return to her PLOF - ROM MP: right IF 0/90 left 0/100 PIP: right IF 0/55 left 0/105 DIP: right IF -15/20 left 0/50 - Strength Director Electrical Engineering: right 15# left 25# - DASH-Disabilities of Arm, Shoulder& Hand DASH Sum: 88 - Goals Goal:: pt will demo understanding of PROM, BLOCKING ex and scar mtg by end of 1st session to ensure pts performance of HEP. - Rehabilitation General Assessment: s/p ORIF pt demo with a decrease in right IF PIP flex. Therapist and pt agree on HEP as pt does have dialysis 3 x week. To day pt was ed. on light PIP flex stretch, PIP blocking ex and scar mtg. pt demo all ex well and was given hand out. pt to call dr with any concerns - pt d/c with HEP Rehabilitation Potential: Good - Anticipated Interventions Anticipated Interventions: A/AAROM/PROM, Home Program - Visit Plan Frequency: initial visit only HEP TEXT: Thank you for the opportunity to evaluate your patient. For Medicare and Medicare HMO plans, please review the plan of care and approve it. It will need to be FAXED BACK to us at [phone] for Medicare purposes. Please let me know if there are questions or concerns regarding this plan of care. Physician Signature: Date:
--- NOTE | 2018-04-30 08:04 | HP.OTDCSUM_ITS ---
HP - OT D/C Summary It has been my pleasure to treat FANY MEREDITH under orders from JESUS PARRY, for the diagnosis of right IF prox. phalx fx for a total of 1 visit(s) . Please see the following information for a summary of their discharge status. - Goals Patient Goals: Regain Mobility Goal:: pt will demo understanding of PROM, BLOCKING ex and scar mtg by end of 1st session to ensure pts performance of HEP. PT D/c with HEP - D/C Information If there are questions or concerns regarding this patient's occupational therapy , please fell free to call me at [phone]. Thank you for the referral of this patient. Sincerely, Ann-Marie Beach, OTR/L, CHT
== END 2018-03-19 19:00 | disposition home or self-care (01) ==
LOC: OT 14:51
PROVIDERS: Family Provider Family Medicine; PCP Family Medicine
DX: S62.620D Displaced fracture of middle phalanx of right index finger, subsequent encounter for fracture with routine healing (principal)
CPT/HCPCS: 97166

== ENCOUNTER 2019-01-01 15:55 | Emergency (ER) | payer MEDICARE, OTHER, SELFPAY ==
[2019-01-01 15:57] VITALS: BP 169/86; PULSE 105; RESP 20; TEMP 36.4; O2SAT 96; BMI 18.6
--- NOTE | 2019-01-01 16:11 | ED.DCSUM_ITS ---
- ER Visit Summary Date of Service: 01/01/19 Chief Complaint: Bleeding from fistula History of Present Illness: The patient is a 78 F who presents with bleeding from the fistula in her left forearm since yesterday. Patient had dialysis yesterday and has been bleeding from her fistula puncture wounds since. Patient states she applied pressure to the area with no improvement. Patient states she placed a towel over her forearm last night and when she woke up this morning there was a lot of blood in the towel. Patient denies any lightheadedness or dizziness. Patient denies any chest pain or shortness of breath. Patient denies any paresthesias or weakness. Physical Examination: Vital signs are stable. Patient is afebrile. Patient is in no acute distress. Musculoskeletal exam reveals some mild bleeding from the AV fistula in the left forearm. There is a palpable thrill noted. There is no pulsatile bleeding. Sensation was intact to light touch in all digits. Capillary refill was less than 2 seconds in all digits. There is good range of motion. Emergency Department Course and Treatment: Gelfoam dressing was applied to the fistula. The bleeding had stopped. Gauze dressing was applied. There is no further bleeding noted. Patient was instructed to maintain the dressing until she follows up with dialysis tomorrow. Patient understood and was agreeable with the plan. All questions were answered. Disposition: Discharge home Impression: Postdialysis bleeding This note was generated with [employer] dictation software. It may contain incorrect words, spelling, and punctuation that were not noted in review of the chart prior to signing ED Disposition - Plan for ED Patient: Disposition: Home or Assisted Living Diagnosis: Bleeding from dialysis shunt Instructions: ED Shunt Dialysis Fistula Bleeding Referrals: Omar Short MD [Primary Care Provider] - 5-7 Days Additional Instructions: Follow-up with dialysis tomorrow as scheduled.
[2019-01-01 17:56] VITALS: BP 172/89; PULSE 74; RESP 16; O2SAT 98
== END 2019-01-01 17:57 | disposition home or self-care (01) ==
PROVIDERS: Emergency Provider Emergency Medicine; Family Provider Family Medicine; PCP Family Medicine
DX: T82.838A Hemorrhage due to vascular prosthetic devices, implants and grafts, initial encounter (principal); N18.6 End stage renal disease; M54.2 Cervicalgia; Z99.2 Dependence on renal dialysis; Z79.01 Long term (current) use of anticoagulants; Z79.82 Long term (current) use of aspirin; Z79.52 Long term (current) use of systemic steroids; Z79.899 Other long term (current) drug therapy
CPT/HCPCS: 99283

== ENCOUNTER 2019-01-02 01:18 | Emergency (ER) | payer MEDICARE, OTHER, SELFPAY ==
[2019-01-01 15:57] VITALS: BMI 18.6
[2019-01-02 01:18] VITALS: BP 165/96; PULSE 68; RESP 16; TEMP 36.4; O2SAT 98; BMI 18.3
--- NOTE | 2019-01-02 02:08 | ED.RN ---
BRAN MIXER HELD PRESSURE FOR AN EXTENDED PERIOD OF TIME. SURGIFOAM DRESSING, NON-ADHERENT DRESSING AND COBAN PLACED.
--- NOTE | 2019-01-02 02:13 | ED.DEP ---
ED Disposition - Plan for ED Patient: Instructions: ED Shunt Dialysis Fistula Bleeding Referrals: Omar Short MD [Primary Care Provider] -
[2019-01-02 02:17] VITALS: BP 165/80; PULSE 82; RESP 16; O2SAT 98
--- NOTE | 2019-01-02 02:25 | ED.VISSUMM ---
- ER Visit Summary Date of Service: 01/02/19 Chief Complaint: Fistula bleeding History of Present Illness: The patient is a 78 F presenting with left arm fistula bleeding. This has been ongoing since after dialysis. She is on Eliquis. She has had oozing bleeding since that time. She was seen in the ED earlier today for similar complaints. After pressure and Gelfoam dressing was applied the bleeding stopped. She states that it started again this evening. She denies lightheadedness or syncope. Denies chest pain or shortness of breath. She has dialysis scheduled for the morning. Physical Examination: Vitals are stable. Patient is afebrile. Alert no acute distress. HEENT exam is unremarkable. Lungs are clear and equal bilaterally. Heart is regular rate and rhythm. Extremities left arm fistula slight oozing, palpable thrill. No pulsatile bleeding. Normal cap refill. Skin is warm and dry. No focal neurologic deficit. Remainder of exam is unremarkable. Emergency Department Course and Treatment: Direct pressure was applied. The bleeding has stopped. Gelfoam dressing was applied. Patient was instructed to follow up with dialysis tomorrow. Patient understood and was agreeable with the plan. All questions were answered. Disposition: Discharge home Impression: Left arm fistula bleeding This note was generated with [employer] dictation software. It may contain incorrect words, spelling, and punctuation that were not noted in review of the chart prior to signing ED Disposition - Plan for ED Patient: Disposition: Home or Assisted Living Instructions: ED Shunt Dialysis Fistula Bleeding Referrals: Omar Short MD [Primary Care Provider] -
== END 2019-01-02 02:18 | disposition home or self-care (01) ==
LOC: ED 01:32
PROVIDERS: Emergency Provider Emergency Medicine; Family Provider Family Medicine; PCP Family Medicine
DX: T82.838A Hemorrhage due to vascular prosthetic devices, implants and grafts, initial encounter (principal); I12.0 Hypertensive chronic kidney disease with stage 5 chronic kidney disease or end stage renal disease; N18.6 End stage renal disease; Z99.2 Dependence on renal dialysis; Z79.01 Long term (current) use of anticoagulants; Z79.82 Long term (current) use of aspirin; Z79.52 Long term (current) use of systemic steroids; Z79.899 Other long term (current) drug therapy
CPT/HCPCS: 99283

== ENCOUNTER 2019-01-07 21:09 | Emergency (ER) | payer MEDICARE, OTHER, SELFPAY ==
[2019-01-07 21:09] VITALS: BP 194/81; PULSE 118; RESP 16; TEMP 36.5; O2SAT 97; BMI 18.0
[2019-01-07 22:11] VITALS: PULSE 122; RESP 14; TEMP 37
[2019-01-07 22:28] LABS: Absolute Neutrophil Count 5.3 X10^3/uL (2.0-7.7); Basophil# 0.02 X10^3/uL; Basophil% 0.3 % (0-1); Eosinophil# 0.07 X10^3/uL; Hematocrit 32.5 % (37-47); Hemoglobin 10.5 g/dl (12.0-15.0); Lymphocyte % 11.9 % (19-41); Mean Corp Hgb Conc 32.3 g/gl (32-36); Mean Corpuscular Hgb 32.7 pg (27.0-32.0); Mean Corpuscular Volume 101.2 fL (81-99); Mean Platelet Vol. 9.5 fl (6.2-12.0); Monocyte# 0.56 X10^3/uL; Monocyte% 8.3 % (0-10); Neutrophil # 5.26 X10^3/uL (2.7-7.7); Neutrophil % 78.4 % (47-70); POSITIVE COUNT NO; POSITIVE DIFFERENTIAL NO; POSITIVE MORPHOLOGY NO; Platelet Count 125 K/mm3 (150-450); RBC Distribution Width CV 14.4 % (11.6-14.6); RBC Distribution Width SD 53.4 fl (35.1-43.9); Red Blood Count 3.21 M/mm3 (4.2-5.4); White Blood Count 6.7 K/mm3 (4.4-11.0)
[2019-01-07] MEDS: Ondansetron 4 MG/2 ML Vial IV (22:31)
[2019-01-07] MEDS: 0.9% Normal Saline 1,000 ML 125 ML IV (22:31)
[2019-01-07 22:41] LABS: ALB/GLOB Ratio 0.8 RATIO (0.9-2.4); AST(SGOT) 15 U/L (15-37); Alanine Aminotransfer ALT/SGPT 11 U/L (13-56); Albumin, Serum 2.8 g/dL (3.2-5.0); Alkaline Phosphatase 84 U/L (45-117); Anion Gap 3 (5-15); BUN 16 mg/dL (7-18); BUN/Creat Ratio 4.6 RATIO (10-20); Calcium,Total 8.8 mg/dL (8.5-10.1); Chloride 102 mmol/L (98-107); EST Glomerular Filtration Rate 13 mL/min (>60); Est Glom Filt Rate - Afr Amer 16 mL/min (>60); Estimated Creatinine Clearance 10.91 ml/min; Globulin 3.6 g/dL (2.2-4.2); Glucose 109 mg/dL (74-106); Lipase 59 U/L (73-393); Potassium 4.6 mmol/L (3.5-5.1); Protein, Total 6.4 g/dL (6.4-8.2); Sodium Level 136 mmol/L (136-145)
[2019-01-07 22:51] LABS: Lactic Acid 0.9 mmol/L (0.4-2.0)
[2019-01-07 23:00] VITALS: BP 191/93; PULSE 106; RESP 16; TEMP 37.1; O2SAT 95
--- NOTE | 2019-01-07 23:01 | ED.VISSUMM ---
- ER Visit Summary Date of Service: 01/07/19 Chief Complaint: [Nausea and vomiting] History of Present Illness: The patient is a 78 F [presents the emergency department complaint nausea and vomiting that started 3 days ago. Patient states that she vomits every time she tries to eat or drink anything. Last several months she is lost about 25 pounds. Patient is a dialysis patient and she did have dialysis today that she completed. Patient also had 2 loose stools today. She denies any fevers. She describes some diffuse abdominal discomfort and bloating. Patient currently on an antibiotic for urinary tract infection and she believes its nitrofurantoin. Patient states that she is had similar issues multiple times in the past and no etiology has been found for her symptoms. Patient has history of coronary artery disease, A. fib, Sjogren's syndrome, diverticulitis, hypertension, and high cholesterol. Surgical history includes cholecystectomy and hysterectomy as well as neck surgery and back surgery.] Physical Examination: [HEENT-PERRLA, EOMI. Cranial nerves II through XII grossly intact. TMs clear. Mucous membranes moist. No adenopathy. Cardiovascular-regular rate and rhythm without murmur or ectopy Lungs-clear to auscultation, chest wall stable without crepitus or subcu emphysem Abdomen-normoactive bowel sounds, soft. Patient has diffuse tenderness palpation especially to the left lower quadrant. There is some guarding. There is no rebound, rigidity, or perineal signs. Extremities-intact ?4, normal range of motion, normal pulses, atraumatic] Test Results: [CBC with differential count 6.7, hemoglobin 10.5, hematocrit 32.5, platelets 125. Chemistries unremarkable. BUN was 16 and creatinine 3.5. LFTs and lipase were normal. CT scan of the abdomen pelvis with p.o. contrast] Emergency Department Course and Treatment: [Patient was medicated with Zofran given normal saline at 150 cc an hour.] Treatment Plan: [Pending CT results. Care of patient turned over the night physician awaiting CT results and final disposition] Disposition: [Pending] Impression: [Abdominal pain Vomiting Weight loss] This note was generated with [employer] software. It may contain incorrect words, spelling, and punctuation that were not noted in review of the chart prior to signing <Marc Long - Last Filed: 01/08/19 00:27> - ER Visit Summary Date of Service: 01/08/19 Chief Complaint: [] History of Present Illness: The patient is a 78 F [] Physical Examination: [] Test Results: [] Emergency Department Course and Treatment: [] CT abdomen pelvis showed no acute findings. There was an abdominal cyst. Patient has nephrolithiasis. Otherwise nothing acute noted. No evidence of obstruction. On reevaluation she does feel better. She will be discharged to follow-up as an outpatient. Given a prescription for Zofran. Treatment Plan: [] Disposition: [] Impression: [] This note was generated with [employer] software. It may contain incorrect words, spelling, and punctuation that were not noted in review of the chart prior to signing <Pritesh Rose - Last Filed: 01/08/19 02:12> ED Disposition <Marc Long - Last Filed: 01/08/19 00:27> <Pritesh Rose - Last Filed: 01/08/19 02:12> - Plan for ED Patient: Referrals: Omar Short MD [Primary Care Provider] -
--- NOTE | 2019-01-07 23:05 | ED.DCSUM_ITS ---
- ER Visit Summary Date of Service: 01/07/19 Chief Complaint: [Nausea and vomiting] History of Present Illness: The patient is a 78 F [presents the emergency department complaint nausea and vomiting that started 3 days ago. Patient states that she vomits every time she tries to eat or drink anything. Last several months she is lost about 25 pounds. Patient is a dialysis patient and she did have dialysis today that she completed. Patient also had 2 loose stools today. She denies any fevers. She describes some diffuse abdominal discomfort and bloating. Patient currently on an antibiotic for urinary tract infection and she believes its nitrofurantoin. Patient states that she is had similar issues multiple times in the past and no etiology has been found for her symptoms. Patient has history of coronary artery disease, A. fib, Sjogren's syndrome, diverticulitis, hypertension, and high cholesterol. Surgical history includes cholecystectomy and hysterectomy as well as neck surgery and back surgery.] Physical Examination: [HEENT-PERRLA, EOMI. Cranial nerves II through XII grossly intact. TMs clear. Mucous membranes moist. No adenopathy. Cardiovascular-regular rate and rhythm without murmur or ectopy Lungs-clear to auscultation, chest wall stable without crepitus or subcu emphysem Abdomen-normoactive bowel sounds, soft. Patient has diffuse tenderness palpation especially to the left lower quadrant. There is some guarding. There is no rebound, rigidity, or perineal signs. Extremities-intact ?4, normal range of motion, normal pulses, atraumatic] Test Results: [CBC with differential count 6.7, hemoglobin 10.5, hematocrit 32.5, platelets 125. Chemistries unremarkable. BUN was 16 and creatinine 3.5. LFTs and lipase were normal. CT scan of the abdomen pelvis with p.o. contrast] Emergency Department Course and Treatment: [Patient was medicated with Zofran given normal saline at 150 cc an hour.] Treatment Plan: [Pending CT results. Care of patient turned over the night physician awaiting CT results and final disposition] Disposition: [Pending] Impression: [Abdominal pain Vomiting Weight loss] This note was generated with [employer] software. It may contain incorrect words, spelling, and punctuation that were not noted in review of the chart prior to signing <Marc Long - Last Filed: 01/08/19 00:27> - ER Visit Summary Date of Service: 01/08/19 Chief Complaint: [] History of Present Illness: The patient is a 78 F [] Physical Examination: [] Test Results: [] Emergency Department Course and Treatment: [] CT abdomen pelvis showed no acute findings. There was an abdominal cyst. Patient has nephrolithiasis. Otherwise nothing acute noted. No evidence of obstruction. On reevaluation she does fee l better. She will be discharged to follow-up as an outpatient. Given a prescription for Zofran. Treatment Plan: [] Disposition: [] Impression: [] This note was generated with [employer] dictation software. It may contain incorrect words, spelling, and punctuation that were not noted in review of the chart prior to signing <Pritesh Rose - Last Filed: 01/08/19 02:12> ED Disposition <Marc Long - Last Filed: 01/08/19 00:27> <Pritesh Rose - Last Filed: 01/08/19 02:12> - Plan for ED Patient: Referrals: Omar Short MD [Primary Care Provider] -
[2019-01-07 23:51] LABS: Mucous, Urine 0 SEEN /hpf (<or=2+)
[2019-01-07 23:52] LABS: Color, Urine Yellow (Yellow); Glucose, Dipstick 100 mg/dl (Normal); Ketone-Dipstick 5 mg/dl (Negative); Leukocyte Esterase-Dipstick 25 /ul (Negative); Nitrite-Dipstick Negative (Negative); Occult Blood-Urine 25 /ul (Negative); Protein-Dipstick 100 mg/dl (Negative); Urine Bilirubin Dipstick Negative (Negative); Urine Clarity Clear (Clear); Urine Urobilinogen Normal (Normal)
[2019-01-07 23:59] LABS: Red Blood Cells-Urine 0-5 SEEN /hpf (0-5); Squamous Epithelial Cells - UA 0-5 SEEN /hpf (5-10)
[2019-01-08] LABS: Bacteria RARE /hpf (None Seen); White Blood Cells 0-5 SEEN /hpf (0-5)
[2019-01-08 00:47] VITALS: BP 178/79; PULSE 78; RESP 14; TEMP 37.1; O2SAT 94
[2019-01-08 01:00] VITALS: BP 158/72; PULSE 73; RESP 14; O2SAT 97
--- NOTE | 2019-01-08 02:12 | ED.DEP ---
ED Disposition - Plan for ED Patient: Disposition: Home or Assisted Living Instructions: ED Vomiting Diarrhea Nonspecific Ad Prescriptions: Ondansetron [Zofran Odt] 4 mg PO Q8H PRN PRN #10 tab PRN Reason: Nausea Referrals: Omar Short MD [Primary Care Provider] - Jean Pierre De Leon MD [NON-STAFF] -
[2019-01-08 02:30] VITALS: BP 151/70; PULSE 80; RESP 14; TEMP 36.6; O2SAT 98
--- NOTE | 2019-01-08 22:14 | CT_ITS ---
STUDY: CT ABDOMEN AND PELVIS WITHOUT CONTRAST REASON FOR EXAM: Female, 78 years old. A history of dialysis. Abdominal pain RADIATION DOSAGE (If Supplied By Facility): CTDIvol = ( 6.43 ) mGy, DLP = ( 444.64 ) mGycm TECHNIQUE: Transaxial images were obtained from the dome of the diaphragm to the symphysis pubis without oral contrast, and without intravenous contrast. Sagittal and coronal images were reconstructed. Individualized dose optimization techniques were used for this CT. COMPARISON: February 16, 2018 FINDINGS: Bibasilar fibrotic changes and bilateral pleural effusions. The liver is normal. No dilated intrahepatic biliary radicles. Previous cholecystectomy. The spleen is normal. The pancreas is normal. Both adrenals are normal. Multiple benign renal cysts. No hydronephrosis on either side. An 8 mm right inferior pole calyceal calculus. A 3.5 cm cystic structure abuts the greater curvature of the stomach. There is no bowel distention, acute appendicitis or diverticulitis. The previously noted diverticulitis has resolved. Significant diverticulosis. No constricting lesions are seen in large bowel. The abdominal wall is intact with no hernias. There is no ascites or any free intraperitoneal air. No indication of epiploic appendagitis The aorta and iliac vessels are heavily calcified in its sahu There is no retrocrural, retroperitoneal or mesenteric adenopathy. Extensive degenerative changes of the lower lumbosacral spine, both hips. Previous back surgery. The urinary bladder is normal.--Previous hysterectomy.. There is no inguinal or pelvic adenopathy. There is no inguinal hernia. . CT/Abdomen/Pel W ORAL Cont Only IMPRESSION: The previously noted acute diverticulitis has resolved. Sigmoid diverticulosis is noted. No acute appendicitis. Multiple benign renal cysts and an 8 mm calculus in the inferior pole of the right kidney. A 3.5 cm cystic structure abutting the greater curvature of the stomach. May be a duplication cyst or may be related to patient's history of dialysis. Bibasilar fibrotic changes and bilateral pleural effusions Electronically Signed: Madi Goldsimth MD at 1:40 EDT Tel , Service support ,
== END 2019-01-08 02:44 | disposition home or self-care (01) ==
PROVIDERS: Emergency Medicine; Emergency Provider Emergency Medicine; Family Provider Family Medicine; PCP Family Medicine
DX: R11.2 Nausea with vomiting, unspecified (principal); R10.9 Unspecified abdominal pain; R19.7 Diarrhea, unspecified; R63.4 Abnormal weight loss; I12.9 Hypertensive chronic kidney disease with stage 1 through stage 4 chronic kidney disease, or unspecified chronic kidney disease; N18.9 Chronic kidney disease, unspecified; Z99.2 Dependence on renal dialysis; N39.0 Urinary tract infection, site not specified; I25.10 Atherosclerotic heart disease of native coronary artery without angina pectoris; I48.91 Unspecified atrial fibrillation; M35.00 Sjogren syndrome, unspecified; E78.00 Pure hypercholesterolemia, unspecified; Z79.01 Long term (current) use of anticoagulants; Z79.82 Long term (current) use of aspirin; Z79.52 Long term (current) use of systemic steroids; Z79.899 Other long term (current) drug therapy; I25.2 Old myocardial infarction; Z87.19 Personal history of other diseases of the digestive system; Z90.49 Acquired absence of other specified parts of digestive tract
CPT/HCPCS: 74176; 80053; 81001; 83605; 83690; 85025; 96361; 96374; 99283; J7030; A4216; J2405

== ENCOUNTER 2019-06-10 08:22 | Inpatient (IN) | payer MEDICARE, OTHER, SELFPAY ==
[2019-05-25 14:43] VITALS: BMI 18.1
[2019-06-10] VITALS (17 sets, daily range): BP systolic 125–198; BP diastolic 65–97; PULSE 62–103; RESP 12–24; TEMP 36.4–37.1; O2SAT 93–100; BMI 18.0; BMI 16.7
--- NOTE | 2019-06-10 08:37 | EKG12_ITS ---
Test Reason : SOB Blood Pressure : / mmHG Vent. Rate : 121 BPM Atrial Rate : 277 BPM P-R Int : 000 ms QRS Dur : 096 ms QT Int : 286 ms P-R-T Axes : 000 016 122 degrees QTc Int : 406 ms Atrial fibrillation with rapid ventricular response with premature ventricular or aberrantly conducte d complexes Moderate voltage criteria for LVH, may be normal variant ST & T wave abnormality, consider lateral ischemia Abnormal ECG Confirmed by ANDREIA JEAN, KELSI ([id number]), visual effects editor EMILY NUNEZ ([id number]) on 06/16/2019 9:18:10 AM Referred By: Ct Pacheco Confirmed By:ALEC BOSWELL MD
--- NOTE | 2019-06-10 08:37 | RAD_ITS ---
EXAM DESCRIPTION: PORTABLE AP CHEST CLINICAL HISTORY: 79 years Female, shortness of breath COMPARISON: None FINDINGS: The thorax is intact. The heart and mediastinum appear to be within normal limits. Perihilar pulmonary edema and peripheral alveolar infiltrates are identified. Small bibasilar pleural effusions are also seen. RAD/Chest 1 View (Portable) IMPRESSION: Acute pulmonary edema with small bibasilar pleural effusions. Electronically Signed: Rahul Freeman, at 9:05 EDT Tel , Service support ,
[2019-06-10] MEDS: Ondansetron 4 MG/2 ML Vial IV (09:19)
[2019-06-10] MEDS: dilTIAZem 25 MG/5 ML Vial 20 MG IV BOLUS (09:20)
[2019-06-10 09:21] LABS: Absolute Lymphocyte Count 0.95 X10^3/uL (0.83-4.51); Absolute Neutrophil Count 7.5 X10^3/uL (2.0-7.7); Basophil# 0.03 X10^3/uL; Basophil% 0.3 % (0-1); Eosinophil# 0.16 X10^3/uL; Eosinophils% 1.8 % (0-5); Hematocrit 29.1 % (37-47); Hemoglobin 9.2 g/dL (12.0-15.0); Lymphocyte # 0.95 X10^3/ul (4.0); Lymphocyte % 10.4 % (19-41); Mean Corp Hgb Conc 31.6 g/dL (32-36); Mean Corpuscular Hgb 34.3 pg (27.0-32.0); Mean Corpuscular Volume 108.6 fL (81-99); Mean Platelet Vol. 9.7 fl (6.2-12.0); Monocyte# 0.46 X10^3/uL; NRBC Flagged by Analyzer 0 % (0-5); Neutrophil # 7.47 X10^3/uL (2.7-7.7); Platelet Count 122 K/mm3 (150-450); RBC Distribution Width CV 14.1 % (11.6-14.6); RBC Distribution Width SD 56.4 fl (35.1-43.9); Red Blood Count 2.68 M/mm3 (4.2-5.4); White Blood Count 9.1 K/mm3 (4.4-11.0)
--- NOTE | 2019-06-10 09:32 | EKG12_ITS ---
Test Reason : REPEAT Blood Pressure : / mmHG Vent. Rate : 064 BPM Atrial Rate : 064 BPM P-R Int : 204 ms QRS Dur : 096 ms QT Int : 420 ms P-R-T Axes : 043 017 170 degrees QTc Int : 433 ms Normal sinus rhythm Left ventricular hypertrophy with repolarization abnormality Abnormal ECG Confirmed by ANDREIA JEAN, KELSI ([id number]), newspaper managing editor EMILY NUNEZ ([id number]) on 06/16/2019 9:48:47 AM Referred By: Ct Pacheco Confirmed By:ALEC BOSWELL MD
[2019-06-10 09:38] LABS: Anion Gap 6 (5-15); BUN 33 mg/dL (7-18); BUN/Creat Ratio 9.2 RATIO (10-20); Calcium,Total 8.7 mg/dL (8.5-10.1); Chloride 105 mmol/L (98-107); Creatinine, Serum 3.57 mg/dL (0.55-1.02); EST Glomerular Filtration Rate 13 mL/min (>60); Est Glom Filt Rate - Afr Amer 16 mL/min (>60); Estimated Creatinine Clearance 10.52 ml/min; Glucose 101 mg/dL (74-106); Potassium 4.8 mmol/L (3.5-5.1); Sodium Level 142 mmol/L (136-145)
[2019-06-10 09:42] LABS: Lactic Acid 1.1 mmol/L (0.4-2.0)
--- NOTE | 2019-06-10 10:00 | ED.DCSUM_ITS ---
- ER Visit Summary Date of Service: 06/10/19 Chief Complaint: Shortness of breath History of Present Illness: The patient is a [address] Nielson and Dr. Sohrt. She reports that she has shortness of breath that began abruptly at 2:00 this morning. She reports that it is severe when she walks around and moderate currently. She denies any chest pain. No cough or fever. reports that she always has the chills and this is unchanged. Patient complains of generalized weakness. She does have a history of end-stage renal disease. She had full round of dialysis yesterday. She reports that she was given antibiotics at dialysis approximately 2 weeks ago for dysuria, but this did not resolve. Physical Examination: Vitals: Stable. Afebrile. General: Well-nourished and well-developed. Head: Normocephalic atraumatic. Neck: Supple, no lymphadenopathy. No JVD. Nontender. Cardiovascular: Tachycardic irregular rhythm with a 2 out of 6 systolic murmur. Respiratory: Moderate respiratory distress with crackles at the bases bilaterally.. Abdominal: Soft, nontender, nondistended, normal bowel sounds. No guarding, rebound, or peritoneal signs. Back: Nontender. Extremities: Nontender, no edema. Skin: Normal color, no rash. Neurologic: Alert and oriented ?3. Cranial nerves II through XII are intact. Normal strength and sensation. Psych: Normal affect. Test Results: EKG shows A. fib with RVR at 121. Nonspecific ST changes. There is T wave inversions laterally. This is a change from January 2018. Repeat EKG is sinus at 64. Nonspecific ST changes. The lateral T wave inversions have resolved. CBC shows an H&H 9.2 and 29.1, platelets 122, segmented she was 82, and sets 10. Chem-7 shows a BUN of 33 and creatinine of 3.57. Initial troponin is 0.152. Clinical Impression(s) from Imaging Studies Chest X-Ray 06/10/19 08:37 IMPRESSION: Acute pulmonary edema with small bibasilar pleural effusions. Electronically Signed: Rahul Freeman, at 9:05 EDT Tel , Service support , Emergency Department Course and Treatment: Patient was placed on BiPAP upon arrival. She was nauseated was given a dose of Zofran IV. She received approximately 9 mg of Cardizem IV and converted to a sinus rhythm. She is much more comfortable than she was. Treatment Plan: Patient will be discussed with the hospitalist admitted to the hospital for further evaluation and treatment. Disposition: Admitted in improved condition. Impression: 1. Atrial fibrillation with RVR. 2. Pulmonary edema. 3. Respiratory failure on BiPAP. 4. End-stage renal disease. 5. Coagulopathy on Eliquis. 6. Critical care time 33 minutes. This note was generated with [employer] dictation software. It may contain incorrect words, spelling, and punctuation that were not noted in review of the chart prior to signing ED Disposition - Plan for ED Patient: Referrals: Omar Short MD [Primary Care Provider] -
--- NOTE | 2019-06-10 10:08 | ED.RN ---
DR WANG IN ROOM. TOLD THIS RN NO SECOND BLOOD CULTURE NEEDED. NOR A URINE AT THIS TIME.DR ROJAS DOES NOT NEED A URINE CATH
--- NOTE | 2019-06-10 10:25 | NURSING ---
DR MOSES WANG
--- NOTE | 2019-06-10 10:29 | NURSING ---
PCU PULMONARY EDEMA, AFIB WITH RVR, ESRD, ELEVATED TROP KORAM
--- NOTE | 2019-06-10 11:06 | HP.PCM_ITS ---
History of Present Illness Date of Admission: 06/10/19 Chief Complaint: shortness of breath The patient is a 79 year old F with an extensive past medical history as listed. She was admitted to the ED on 06/10/2019 with a complaint of shortness of breath was started around 2 AM of morning of admission. Shortness of breath was abrupt in onset and associated with palpitations. He also complained of generalized weakness but denied any chest pain or dizziness or lightheadedness, diarrhea or vomiting. Patient has dialysis on Wednesdays and Fridays had dialysis one day prior to admission. She states she did not have a lot of fluid taken off as she is below her dry weight. Review of systems is otherwise negative. On admission in the ED, vitals were significant for elevated blood pressure of 136/87 and she was tachypneic with respiratory rate at 24. Heart rate was 103 per chart and she was immediately put on BiPAP. Heart rate improved. She was in A. fib. Initial troponin was 0.152 and creatinine was 3.57. CBC showed hemoglobin of 9.2 and chest x-ray showed acute pulmonary edema with small bibasilar pleural effusions. EKG done showed A. fib with RVR at 121 on admission with T wave inversions laterally. Repeat EKG showed resolution of lateral T wave inversions. She has been admitted to be managed for A. fib with RVR and non-STEMI. [] Past Medical History Past Medical History (Chronic Problems): Chronic Problems (Last Reviewed 05/19/19 @ 16:37 by Mae Ordonez) History of non-ST elevation myocardial infarction (NSTEMI) (Chronic 07/18/18) Related to respiratory failure: Echo showed EF 30% with multiple segment abnormalities (EF since then has improved to date). Diabetes mellitus, type II (Chronic) Atherosclerotic heart disease of [place] coronary artery without angina pectoris (Chronic) 30% narrowing at distal left main; 30-40% proximal lesion; 50% proximal lesion in mid diagonal; stent widely patent in CX with no in-stent restenosis. 20% narrowing in distal CX. 20% narrowing in proximal RCA. Right iliofemoral angiogram: High bifurcation of the SFA/profunda famoral arteries. Arteriotomy is in the SFA. Lines removed without closure devices. Stented coronary artery (Chronic 07/26/13) 2.5 X 24 mm bare metal Express2 stent per Dr. Ayla Mills @ [facility] History of left heart catheterization (Chronic 07/13/14) Cath done @ [facility] for eval for renal transplant: 30% narrowing at distal left main; 30-40% proximal lesion; 50% proximal lesion in mid diagonal; stent widely patent in CX with no in-stent restenosis. 20% narrowing in distal CX. 20% narrowing in proximal RCA. Right iliofemoral angiogram: High bifurcation of the SFA/profunda famoral arteries. Arteriotomy is in the SFA. Lines removed without closure devices. Previous cath done 07/21/13 at same facility done for abnormal stress: Left main 20-30%. FFR of LAD, 40% proximal lesion.Diagonal 1 75% proximal occlusion, small vessel; not clinically relevant. 75% proximal CX lesion (see stent on problem list); RCA no obstructive disease. History of radiofrequency ablation (RFA) procedure for cardiac arrhythmia (Chronic 10/29/18) For frequent symptomatic PVC's per Dr. Centeno, [facility] [place], [place] Paroxysmal atrial fibrillation (Chronic) Atrial dilatation, bilateral (Chronic) Moderate per echo 10/29/2018 Concentric left ventricular hypertrophy (Chronic) Mild per echo 10/29/18, EF 55-60%. [facility] Pericardial effusion (Chronic) Minimal per echo 10/29/2018, [place], [place] Nonrheumatic tricuspid (valve) insufficiency (Chronic) Mild, RVSP 36.6 Per echo 10/29/18 done @ [place], [place] Nonrheumatic mitral valve regurgitation (Chronic) Mild to Moderate per echo 10/29/18, [facility] Hemodialysis patient (Chronic) [place], Meme, Sat AV fistula (Chronic) left forearm Anemia of chronic kidney failure (Chronic) Hypertension (Chronic) Hyperlipidemia (Chronic) Pulmonary fibrosis (Chronic) Chronic steroid use (Chronic) Sjogrens syndrome (Chronic) GERD (gastroesophageal reflux disease) (Chronic) Hyperuricemia (Chronic) Diarrhea (Chronic) History of total abdominal hysterectomy (Chronic) History of umbilical hernia repair (Chronic ~2013) History of cholecystectomy (Chronic) History of thumb surgery (Chronic ~2009) right thumb History of esophagogastroduodenoscopy (EGD) (Chronic) History of colonoscopy (Chronic 09/01/13) History of cervical spinal surgery (Chronic) Gout (Chronic) Medical History: Medical History (Last Reviewed 05/19/19 @ 16:37 by Mae Ordonez) History of non-ST elevation myocardial infarction (NSTEMI) (Chronic) Onset Date: 07/18/18 I25.2 Related to respiratory failure: Echo showed EF 30% with multiple segment abnormalities (EF since then has improved to date). Respiratory failure (Resolved) Onset Date: 07/18/18 J96.90 Admitted to PCU @ [facility]: placed on bipap for hypoxemic/hypercapneic respiratory failure requiring bipap. Possible aspirat ion pneumonia. Pulmonary fibrosis, Sjogren's. Diabetes mellitus, type II (Chronic) E11.9 Atherosclerotic heart disease of [place] coronary artery without angina pectoris (Chronic) I25.10 30% narrowing at distal left main; 30-40% proximal lesion; 50% proximal lesion in mid diagonal; stent widely patent in CX with no in-stent restenosis. 20% narrowing in distal CX. 20% narrowing in proximal RCA. Right iliofemoral angiogram: High bifurcation of the SFA/profunda famoral arteries. Arteriotomy is in the SFA. Lines removed without closure devices. Paroxysmal atrial fibrillation (Chronic) I48.0 Atrial dilatation, bilateral (Chronic) I51.7 Moderate per echo 10/29/2018 Concentric left ventricular hypertrophy (Chronic) I51.7 Mild per echo 10/29/18, EF 55-60%. [facility] Pericardial effusion (Chronic) I31.3 Minimal per echo 10/29/2018, [place], [place] Nonrheumatic tricuspid (valve) insufficiency (Chronic) I36.1 Mild, RVSP 36.6 Per echo 10/29/18 done @ [place], [place] Nonrheumatic mitral valve regurgitation (Chronic) I34.0 Mild to Moderate per echo 10/29/18, [facility] in [place] Hemodialysis patient (Chronic) Z99.2 Tues, Thurs, Sat ESRD (end stage renal disease) (Acute) N18.6 Anemia of chronic kidney failure (Chronic) N18.9, D63.1 Hypertension (Chronic) I10 Hyperlipidemia (Chronic) E78.5 Pulmonary fibrosis (Chronic) J84.10 Chronic steroid use (Chronic) Sjogrens syndrome (Chronic) M35.00 GERD (gastroesophageal reflux disease) (Chronic) K21.9 Gout (Chronic) M10.9 Allergies hydrocodone Allergy (Verified 06/10/19 08:24) deathly ill sulfamethoxazole [From Bactrim] Allergy (Verified 06/10/19 08:24) Swelling trimethoprim [From Bactrim] Allergy (Verified 06/10/19 08:24) Swelling Sulfa (Sulfonamide Antibiotics) Adverse Reaction (Verified 06/10/19 08:24) Angioedema Home Medications: Ambulatory Orders Medication Instructions Recorded Magnesium 60 mg PO DAILY 02/16/14 hydrALAZINE [Apresoline] 50 mg PO TID 02/16/18 Bumetanide 1 mg PO QODAY 01/07/19 Saccharomyces Boulardii [Florastor] 1 cap PO DAILY 01/07/19 Telmisartan [Micardis] 40 mg PO DAILY 01/07/19 acetaminophen 500 mg tablet 500 mg PO Q8H PRN tab 03/05/19 amlodipine 10 mg tablet 10 mg PO DAILY 03/05/19 apixaban 2.5 mg tablet 2.5 mg PO BID 03/05/19 aspirin 81 mg tablet,delayed 81 mg PO DAILY 03/05/19 release bismuth subsalicylate 262 mg/15 mL 524 mg PO Q30-60M PRN 03/05/19 oral suspension sevelamer carbonate 800 mg tablet 800 mg PO DAILY tab 03/05/19 clonidine HCl 0.1 mg tablet 0.1 mg PO TID tab 03/23/19 prednisone 5 mg tablet 5 mg PO DAILY 05/25/19 Diphenoxylate HCl/Atropine 1 tab PO Q8H PRN PRN 06/10/19 [Lomotil 2.5-0.025 mg Tablet] Famotidine 20 mg PO DAILY 06/10/19 Isosorbide Mononitrate [Isosorbide 60 mg PO DAILY 06/10/19 Mononitrate ER] Nitroglycerin 0.4 mg SL PRN PRN 06/10/19 proMETHazine tablet [Phenergan 12.5 mg PO DAILY 06/10/19 tablet] Surgical History: Surgical History (Last Reviewed 05/19/19 @ 16:37 by Mae Ordonez) Stented coronary artery (Chronic) Onset Date: 07/26/13 Z95.5 2.5 X 24 mm bare metal Express2 stent per Dr. Ayla Mills @ [facility] History of left heart catheterization (Chronic) Onset Date: 07/13/14 Z98.890 Cath done @ [facility] for eval for renal transplant: 30% narrowing at distal left main; 30-40% proximal lesion; 50% proximal lesion in mid diagonal; stent widely patent in CX with no in-stent restenosis. 20% narrowing in distal CX. 20% narrowing in proximal RCA. Right iliofemoral angiogram: High bifurcation of the SFA/profunda famoral arteries. Arteriotomy is in the SFA. Lines removed without closure devices. Previous cath done 07/21/13 at same facility done for abnormal stress: Left main 20-30%. FFR of LAD, 40% proximal lesion.Diagonal 1 75% proximal occlusion, small vessel; not clinically relevant. 75% proximal CX lesion (see stent on problem list); RCA no obstructive disease. History of radiofrequency ablation (RFA) procedure for cardiac arrhythmia (Chronic) Onset Date: 10/29/18 Z98.890 For frequent symptomatic PVC's per Dr. 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 Denies: Anorexia, Fever, Night Sweats Eyes: Denies: Blurred vision HEENT: Denies: Head Aches, Sinus Congestion, Sinus Drainage Cardiovascular: Reports: Palpitations. Denies: Chest Pain, Chest Pressure, Chest Tightness, Edema, Orthopnea, Paroxysmal Noc. Dyspnea, Syncope Respiratory: Reports: Shortness of Breath, Shortness of breath at rest, Shortness of breath upon exertion. Denies: Cough, Sputum production Gastrointestinal: Denies: Abdominal Pain, Nausea, Vomiting Genitourinary: Denies: Dysuria Musculoskeletal: Denies: Joint Pain, Joint Tenderness Skin: Denies: Rash, Wounds Neurological: Denies: Numbness, Tingling, Focal weakness Psychiatric: Denies: Anxiety, Depression, Homicidal Ideations, Suicidal Ideations Hematologic/ Lymphatic: Denies: Easy Bruising, Easy Bleeding VTE Information - Inpt Only VTE Present on Admission: No VTE Pharm Prophylaxis ordered?: Yes - Physical Exam General: Alert, Oriented x3, Cooperative, - - tearful HEENT: Atraumatic, PERRLA, EOMI, Normocephalic Oral: Moist Mucosa Neck: Supple, No JVD, Negative Carotid Bruits Lungs: - - mildly decreased breath sounds bibasally, no wheezes or crackles. Cardiovascular: Normal S1, Normal S2, No murmurs, Irregular Rate Abdomen: Bowel Sounds Present, Soft, Non Tender, Non-Distended, No Hepato- splenomegaly Extremities: No clubbing, No cyanosis, No edema, Capillary Refill Less than 3 Seconds Skin: No rashes, No breakdown Musculoskeletal: No Tenderness to Palpation of Joints or Extremities Lymphatic: No Cervical, Supraclavicular, or Inguinal Adenopathy Neurological: Cranial nerves II-XII grossly intact, Neuro grossly intact, Motor Exam 5/5 strength throughout Psych/Mental Status: - - tearful, Alert and oriented to time, place, person, mood and affect Vital Signs Temp Pulse Resp BP Pulse Ox 98.2 F 90 18 176/87 H 96 06/10/19 11:04 06/10/19 11:04 06/10/19 11:04 06/10/19 11:04 06/10/19 11:04 Oxygen Flow Rate (L/min) 2 Oxygen Delivery Method Nasal Cannula Weight: 115 lb Body Mass Index (BMI) 18.0 Laboratory Tests Past 24 Hrs 06/10/19 06/10/19 06/10/19 09:10 09:10 09:10 WBC 9.1 RBC 2.68 L Hgb 9.2 L Hct 29.1 L MCV 108.6 H MCH 34.3 H MCHC 31.6 L RDW Std Deviation 56.4 H RDW Coeff of Allison 14.1 Plt Count 122 L MPV 9.7 Immature Gran % (Auto) 0.500 Neut % (Auto) 82.0 H Lymph % (Auto) 10.4 L [place] % (Auto) 5.0 Eos % (Auto) 1.8 Baso % (Auto) 0.3 Absolute Neuts (auto) 7.5 Absolute Lymphs (auto) 0.95 Nucleated RBC % 0 Sodium 142 Potassium 4.8 Chloride 105 Carbon Dioxide 31.0 Anion Gap 6 BUN 33 H Creatinine 3.57 H Estim Creat Clear Calc 10.52 Est GFR (MDRD) Af Amer 16 L Est GFR (MDRD) Non-Af 13 L BUN/Creatinine Ratio 9.2 L Glucose 101 Lactic Acid 1.1 Calcium 8.7 Troponin I 0.152 H Diagnostic Data Chest X-Ray 06/10/19 08:37 IMPRESSION: Acute pulmonary edema with small bibasilar pleural effusions. Electronically Signed: Rahul Freeman, at 9:05 EDT Tel , Service support , Assessment/Plan All Active Problems (Last Reviewed 05/19/19 @ 16:37 by Mae Ordonez) Respiratory failure (Resolved 07/18/18) ESRD (end stage renal disease) (Acute) Nausea & vomiting (Acute) Diverticulitis (Acute) 79 y/o admitted with a complaint of sudden onset of shortness of breath 1. Nonstemi * troponin was 0.152 on admission, and trended up to 0.239. * EKG initially showed lateral T wave inversions, and later resolved with subsequent EKG * denies any chest pain * does have a history of CAD with placement of bare metal stent in [facility] * admit to PCU with telemetry * SL nitroglycerin prn; PO aspirin 81mg daily * cardiology consulted * already anticoagulated with eliquis * 2. Afib with RVR * HR was 121 per EKG on arrival; she received a bolus of cardizem and was started on BIPAP * HR now rate controlled * continue eliquis; not on any beta ronnie per EMR. Patient says she has a history of very slow HR, and has gone down to the 30s before, and has been told she may need a pacemaker. This is why, she believes, she has not been on a beta ronnie or rate limiting medication * monitor for now * 2D echo * 3. acute exacerbation of HFpEF * CXR showed acute pulmonary edema; this may also be due to flash pulmonary edema from Afib with RVR * received one dose of IV lasix in ED. * BNP was ~ 2878; despite ESRD, BNP is markedly elevated and likely due to heart failure exacerbation * cannot diurese aggressively because she doesnt make much urine * give one dose of IV lasix 40mg * to have dialysis tomorrow; this will help with fluid removal * echo as under 6. * 2D echo ordered * 4. ESRD: on HD MWF. Cr is 3.57. Nephrology consulted. On sevelamer 5. Hypertension: Bp elevated at 176/87. On amlodipine, hydralazine and telmisartan. Hydralazine on hold o/a of afib with RVR. IV lopressor prn 6. CAD s/p stent * She had bare-metal stent placement on 07/26/2013 in [facility]. also had anterolateral papillary muscle catheter ablation by Dr Centeno in October 2018 in [facility] * Echo (done in September 2018) in [facility] showed EF of 55-60%, stage 2 diastolic dysfunction, severe left atrial dilattion and RVSP of 40 to 45mmhg. * on aspirin. 7.Sjogren's syndrome: on prednisone 5mg daily DVT prophylaxis: on eliquis Code status: full code * Patient counseled extensively about different types of CODE STATUS including full code, DNR CCA and DNR CCA. Patient elects to be full code. Total aeat-qf-oheu time 17 minutes. Code Visit Inpatient E&M: 49483 Init Hosp L3 Procedures: 02293 Advncd Care Plan 30 Min
[2019-06-10] MEDS: hydrALAZINE 50 MG Tablet PO (13:20)
[2019-06-10] MEDS: amLODIPine 10 MG Tablet PO (13:20)
[2019-06-10] MEDS: Magnesium Oxide 400 MG Tablet PO (13:21)
[2019-06-10] MEDS: cloNIDine HCl 0.1 MG Tablet PO ×2 (13:21→22:30)
[2019-06-10] MEDS: Losartan Potassium 50 MG Tablet PO (13:21)
[2019-06-10] MEDS: Furosemide 40 MG/4 ML Vial IV (14:15)
[2019-06-10] MEDS: 0.9% NaCl Peripheral Flush Adult/Peds IV (14:15)
[2019-06-10] MEDS: Aspirin E.C. 81 MG Tablet PO (14:16)
[2019-06-10] MEDS: SEVELAMER CARBONATE 800 MG TABLET PO (14:16)
--- NOTE | 2019-06-10 14:16 | ECHOD_ITS ---
Version 2 Reason For Study: ARRHYTHMIA Procedure This was a 2D Doppler, Color Flow transthoracic echocardiogram. Exam performed portable in patient room. Left Ventricle Normal LV size. Concentric left ventricular hypertrophy. The estimated ejection fraction is 50-55 %. Stage 2 diastolic dysfunction. No regional wall motion abnormalities noted. Right Ventricle Normal RV size. Normal systolic function. Atria The left atrium is moderately enlarged. Normal right atrium. No doppler evidence for ASD. Mitral Valve There is no mitral valve stenosis. Moderately severe (3+) mitral valve insufficiency. Tricuspid Valve There is no tricuspid stenosis. Unable to estimate RV systolic pressure due to inadequate jet, pulmonary artery pressure probably normal. Aortic Valve Mild diffuse aortic valve thickening. Mild aortic stenosis. No aortic valve insufficiency. Pulmonic Valve There is no pulmonic valvular stenosis. Trivial pulmonic valve insufficiency. Great Vessels Normal aortic root. Pericardium/Pleural No pericardial effusion. Moderate size left pleural effusion. MMode/2D Measurements & Calculations LVIDd: 5.9 cm IVSd: 1.4 cm LAV(MOD-bp): 86.7 ml LVIDs: 4.7 cm LVPWd: 1.3 cm LAV(MOD-bp) Indexed: 56.2 ml/m2 RVDd: 3.7 cm FS: 20.8 % LAV(MOD-sp2): 85.7 ml LAV(MOD-sp4): 88.0 ml LA dimension(2D): 4.5 cm LA A4 area: 25.6 cm2 RA A4 area: 14.0 cm2 Time Measurements MV dec time: 0.15 sec Doppler Measurements & Calculations MV E max martinez: 134.9 cm/sec Lat Peak E' Martinez: 6.2 cm/sec Med Peak E' Martinez: 3.4 cm/sec MV A max martinez: 103.4 cm/sec E/E' lat: 21.8 E/E' med: 40.2 MV E/A: 1.3 Ao V2 max: 149.5 cm/sec LV V1 max: 102.2 cm/sec PA V2 max: 101.1 cm/sec Ao max P.9 mmHg LV V1 max P.2 mmHg Interpretation Summary The estimated ejection fraction is 50-55 %. Stage 2 diastolic dysfunction. Mild aortic stenosis. Moderately severe (3+) mitral valve insufficiency. The left atrium is moderately enlarged. Ordering Physician: Ct Pacheco Referring Physician: Aba Short Performed By: Elena Caldwell, DANE, RVT
--- NOTE | 2019-06-10 14:34 | CON.PCM_ITS ---
Reason for Consult Date of Consultation: 06/10/19 Reason for Consultation: Shortness of breath, elevated troponin, atrial fibrillation History of Present Illness: The patient is a 79 year old F with an extensive past medical history as listed. She was admitted to the ED on 06/10/2019 with a complaint of shortness of breath which started around 2 AM of morning of admission. Shortness of breath was abrupt in onset and associated with palpitations. He also complained of generalized weakness but denied any chest pain or dizziness or lightheadedness, diarrhea or vomiting. Patient has dialysis on Wednesdays and Fridays had dialysis one day prior to admission. She states she did not have a lot of fluid taken off as she is below her dry weight. Review of systems is otherwise negative. On admission in the ED, vitals were significant for elevated blood pressure of 136/87 and she was tachypneic with respiratory rate at 24. Heart rate was 103 per chart and she was immediately put on BiPAP. Heart rate improved. She was in A. fib. Initial troponin was 0.152 and creatinine was 3 .57. CBC showed hemoglobin of 9.2 and chest x-ray showed acute pulmonary edema with small bibasilar pleural effusions. EKG done showed A. fib with RVR at 121 on admission with T wave inversions laterally. Repeat EKG showed resolution of lateral T wave inversions. Patient initially presented with A. fib with RVR and now is in sinus rhythm. She was started on BiPAP and now she is off BiPAP and her breathing is better. Prior to PCI of the circumflex in [facility] patient did not have any shortness of breath or chest pain. She apparently underwent angiogram as she was being evaluated for renal transplantation. Patient states that they do not remove significant amount of fluid during her dialysis as she is usually below her dry weight. She does take Bumex on the days that she is not getting dialysis. Recent has been noticing worsening shortness of breath over the period of several weeks as well. Review of systems: All systems reviewed. All else is negative except that in th e HPI. Past Medical History Allergies/Adverse Reactions: Allergies hydrocodone Allergy (Verified 06/10/19 08:24) deathly ill sulfamethoxazole [From Bactrim] Allergy (Verified 06/10/19 08:24) Swelling trimethoprim [From Bactrim] Allergy (Verified 06/10/19 08:24) Swelling Sulfa (Sulfonamide Antibiotics) Adverse Reaction (Verified 06/10/19 08:24) Angioedema Home Medications: Ambulatory Orders Medication Instructions Recorded Magnesium 64 mg PO DAILY 02/16/14 hydrALAZINE [Apresoline] 50 mg PO TID 02/16/18 Bumetanide 1 mg PO QODAY 01/07/19 Saccharomyces Boulardii [Florastor] 1 cap PO BID 01/07/19 Telmisartan [Micardis] 40 mg PO DAILY 01/07/19 acetaminophen 500 mg tablet 500 mg PO Q8H PRN tab 03/05/19 amlodipine 10 mg tablet 10 mg PO DAILY 03/05/19 apixaban 2.5 mg tablet 2.5 mg PO BID 03/05/19 aspirin 81 mg tablet,delayed 81 mg PO DAILY 03/05/19 release bismuth subsalicylate 262 mg/15 mL 524 mg PO Q30-60M PRN 03/05/19 oral suspension loperamide 2 mg tablet 3 mg PO DAILY tab 03/05/19 sevelamer carbonate 800 mg tablet 800 mg PO DAILY tab 03/05/19 clonidine HCl 0.1 mg tablet 0.1 mg PO TID tab 03/23/19 prednisone 5 mg tablet 5 mg PO .COMPLEX 05/25/19 Isosorbide Mononitrate [Isosorbide 60 mg PO DAILY 06/10/19 Mononitrate ER] proMETHazine tablet [Phenergan 12.5 mg PO DAILY 06/10/19 tablet] Past Medical History (Chronic Problems): Chronic Problems (Last Reviewed 05/19/19 @ 16:37 by Mae Ordonez) History of non-ST elevation myocardial infarction (NSTEMI) (Chronic 07/18/18) Related to respiratory failure: Echo showed EF 30% with multiple segment abnormalities (EF since then has improved to date). Diabetes mellitus, type II (Chronic) Atherosclerotic heart disease of [place] coronary artery without angina pectoris (Chronic) 30% narrowing at distal left main; 30-40% proximal lesion; 50% proximal lesion in mid diagonal; stent widely patent in CX with no in-stent restenosis. 20% narrowing in distal CX. 20% narrowing in proximal RCA. Right iliofemoral angiogram: High bifurcation of the SFA/profunda famoral arteries. Arteriotomy is in the SFA. Lines removed without closure devices. Stented coronary artery (Chronic 07/26/13) 2.5 X 24 mm bare metal Express2 stent per Dr. Ayla Mills @ [facility] History of left heart catheterization (Chronic 07/13/14) Cath done @ [facility] for eval for renal transplant: 30% narrowing at distal left main; 30-40% proximal lesion; 50% proximal lesion in mid diagonal; stent widely patent in CX with no in-stent restenosis. 20% narrowing in distal CX. 20% narrowing in proximal RCA. Right iliofemoral angiogram: High bifurcation of the SFA/profunda famoral arteries. Arteriotomy is in the SFA. Lines removed without closure devices. Previous cath done 07/21/13 at same facility done for abnormal stress: Left main 20-30%. FFR of LAD, 40% proximal lesion.Diagonal 1 75% proximal occlusion, small vessel; not clinically relevant. 75% proximal CX lesion (see stent on problem list); RCA no obstructive disease. History of radiofrequency ablation (RFA) procedure for cardiac arrhythmia (Chronic 10/29/18) For frequent symptomatic PVC's per Dr. Centeno, [facility] in [place], [place] Paroxysmal atrial fibrillation (Chronic) Atrial dilatation, bilateral (Chronic) Moderate per echo 10/29/2018 Concentric left ventricular hypertrophy (Chronic) Mild per echo 10/29/18, EF 55-60%. [facility] Pericardial effusion (Chronic) Minimal per echo 10/29/2018, [place], [place] Nonrheumatic tricuspid (valve) insufficiency (Chronic) Mild, RVSP 36.6 Per echo 10/29/18 done @ [place], [place] Nonrheumatic mitral valve regurgitation (Chronic) Mild to Moderate per echo 10/29/18, [facility] Hemodialysis patient (Chronic) Tues, Thurs, Sat AV fistula (Chronic) left forearm Anemia of chronic kidney failure (Chronic) Hypertension (Chronic) Hyperlipidemia (Chronic) Pulmonary fibrosis (Chronic) Chronic steroid use (Chronic) Sjogrens syndrome (Chronic) GERD (gastroesophageal reflux disease) (Chronic) Hyperuricemia (Chronic) Diarrhea (Chronic) History of total abdominal hysterectomy (Chronic) History of umbilical hernia repair (Chronic ~2013) History of cholecystectomy (Chronic) History of thumb surgery (Chronic ~2009) right thumb History of esophagogastroduodenoscopy (EGD) (Chronic) History of colonoscopy (Chronic 09/01/13) History of cervical spinal surgery (Chronic) Gout (Chronic) Surgical History: cholecystectomy, hysterectomy, - 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: No pertinent 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 TEACHER history - *Family History Maternal Family History: Family History (Last Reviewed 05/19/19 @ 16:37 by Mae Ordonez) Mother CVA (cerebral vascular accident) Father CAD (coronary artery disease) Brother CAD (coronary artery disease) Myocardial infarction Brother CVA (cerebral vascular accident) History Items: No pertinent history Smoking Status: Former smoker Objective: Vital Signs Temp Pulse Resp BP Pulse Ox 98.7 F 88 20 H 157/73 H 97 06/10/19 14:19 06/10/19 14:19 06/10/19 14:19 06/10/19 14:19 06/10/19 14:19 Oxygen Flow Rate (L/min) 2 Oxygen Delivery Method Nasal Cannula Weight: 106 lb 4.205 oz Body Mass Index (BMI) 16.7 Intake and Output for Last 24 Hours 06/08/19 06/09/19 06/10/19 23:59 23:59 23:59 Intake Total 60 / 60 Balance 60 / 60 General: Awake, Alert, Oriented x 3 HEENT: Atraumatic Oral: Moist Mucosa Neck: Supple Lungs: Rales - Jasmeet Bases Cardiovascular: Regular Rhythm Abdomen: Soft Extremities: No edema Skin: No Rashes Psych/Mental Status: Appropriate 06/10/19 09:10: WBC 9.1, RBC 2.68 L, Hgb 9.2 L, Hct 29.1 L, MCV 108.6 H, MCH 34.3 H, MCHC 31.6 L, Plt Count 122 L, MPV 9.7, Immature Gran % (Auto) 0.500, Neut % (Auto) 82.0 H, Lymph % (Auto) 10.4 L, [place] % (Auto) 5.0, Eos % (Auto) 1.8, Baso % (Auto) 0.3, Absolute Neuts (auto) 7.5, Nucleated RBC % 0 06/10/19 09:10: Sodium 142, Potassium 4.8, Chloride 105, Carbon Dioxide 31.0, Anion Gap 6, BUN 33 H, Creatinine 3.57 H, Est GFR (MDRD) Af Amer 16 L, Est GFR (MDRD) Non-Af 13 L, BUN/Creatinine Ratio 9.2 L, Glucose 101, Calcium 8.7, Troponin I 0.152 H 06/10/19 09:10: Lactic Acid 1.1 06/10/19 12:25: Troponin I 0.239 H Rhythm: EKG: ECHO: Stress Test: Cardiac Cath: PCI: CT Surgery: Holter monitor: EPS: PPM: CXR: Chest CT Scan: Assessment/Plan 1. Shortness of breath: Patient appears to be in heart failure. Her last echo revealed preserved EF and stage II diastolic dysfunction. Patient is currently in sinus rhythm and feels better. She has history of paroxysmal atrial fibrillation and usually is in sinus rhythm. It is possible that patient went into A. fib with RVR and this precipitated heart failure. She does have bibasilar crackles. We will try IV Lasix to see if we are able to get some fluid out. If not some fluid can be removed during dialysis tomorrow. I would recommend cycling cardiac enzymes to see if it goes up further. If it does we can consider coronary angiography. At this time it would be reasonable to man age her medically without invasive approach. 2. Elevated cardiac enzymes: This could be related to a combination of A. fib with RVR, congestive heart failure, underlying coronary artery disease. Patient does have 70% stenosis in a small diagonal branch. At this time cycle cardiac enzymes and if it goes up significantly then we can consider coronary angiography. 3. Paroxysmal atrial fibrillation: Patient responded well to IV Cardizem given in the emergency room. I will start her on p.o. Cardizem. Continue Eliquis as well.
[2019-06-10] MEDS: predniSONE 5 MG Tablet PO (17:57)
[2019-06-10] MEDS: dilTIAZem 30 MG Tablet PO ×2 (17:57→23:15)
[2019-06-10] MEDS: Isosorbide Mononitrate 60 MG Tablet PO (17:57)
[2019-06-10] MEDS: proMETHazine 25 MG Tablet 12.5 MG PO (17:57)
[2019-06-10] MEDS: APIXABAN 2.5 MG TABLET PO (22:30)
[2019-06-11] VITALS (12 sets, daily range): BP systolic 117–162; BP diastolic 60–81; PULSE 58–98; RESP 18–20; TEMP 36.5–37.3; O2SAT 92–99
[2019-06-11] MEDS: DiphenhydrAMINE 25 MG Capsule PO (00:01)
[2019-06-11] MEDS: Famotidine 20 MG Tablet PO ×2 (00:01→21:16)
[2019-06-11] MEDS: Acetaminophen 500 MG Tablet PO (00:01)
[2019-06-11 05:15] LABS: Absolute Lymphocyte Count 0.68 X10^3/uL (0.83-4.51); Absolute Neutrophil Count 6.7 X10^3/uL (2.0-7.7); Basophil# 0.02 X10^3/uL; Basophil% 0.3 % (0-1); Eosinophil# 0.06 X10^3/uL; Eosinophils% 0.8 % (0-5); Hematocrit 25.2 % (37-47); Lymphocyte # 0.68 X10^3/ul (4.0); Lymphocyte % 8.6 % (19-41); Mean Corp Hgb Conc 31.7 g/dL (32-36); Mean Corpuscular Hgb 34.5 pg (27.0-32.0); Mean Corpuscular Volume 108.6 fL (81-99); Mean Platelet Vol. 9.6 fl (6.2-12.0); Monocyte# 0.49 X10^3/uL; Monocyte% 6.2 % (0-10); NRBC Flagged by Analyzer 0 % (0-5); Neutrophil # 6.65 X10^3/uL (2.7-7.7); Neutrophil % 83.7 % (47-70); Platelet Count 104 K/mm3 (150-450); RBC Distribution Width CV 13.8 % (11.6-14.6); RBC Distribution Width SD 55.2 fl (35.1-43.9); Red Blood Count 2.32 M/mm3 (4.2-5.4); White Blood Count 7.9 K/mm3 (4.4-11.0)
[2019-06-11] MEDS: cloNIDine HCl 0.1 MG Tablet PO ×2 (05:17→21:14)
[2019-06-11] MEDS: dilTIAZem 30 MG Tablet PO ×4 (05:17→23:31)
[2019-06-11 05:34] LABS: Anion Gap 4 (5-15); BUN 45 mg/dL (7-18); BUN/Creat Ratio 9.4 RATIO (10-20); Calcium,Total 8.3 mg/dL (8.5-10.1); Chloride 107 mmol/L (98-107); EST Glomerular Filtration Rate 9 mL/min (>60); Est Glom Filt Rate - Afr Amer 11 mL/min (>60); Estimated Creatinine Clearance 7.23 ml/min; Glucose 101 mg/dL (74-106); Potassium 5.8 mmol/L (3.5-5.1); Sodium Level 141 mmol/L (136-145)
[2019-06-11] MEDS: Losartan Potassium 50 MG Tablet PO (09:27)
[2019-06-11] MEDS: Aspirin E.C. 81 MG Tablet PO (09:27)
[2019-06-11] MEDS: SEVELAMER CARBONATE 800 MG TABLET PO (09:27)
[2019-06-11] MEDS: amLODIPine 10 MG Tablet PO (09:28)
[2019-06-11] MEDS: predniSONE 5 MG Tablet PO (09:28)
[2019-06-11] MEDS: Magnesium Oxide 400 MG Tablet PO (09:28)
[2019-06-11] MEDS: APIXABAN 2.5 MG TABLET PO ×2 (09:28→21:14)
[2019-06-11] MEDS: Isosorbide Mononitrate 60 MG Tablet PO (09:28)
[2019-06-11] MEDS: proMETHazine 25 MG Tablet 12.5 MG PO (09:30)
--- NOTE | 2019-06-11 09:43 | CASEMGMT ---
RN PRINCE FURNACE LINER CM to room to meet with patient for initial transition planning/care coordination assessment. RN PRINCE introduced self and role at [facility]. Pt voices understanding and consents to assessment at this time. Pt sitting up in recliner chair in room. @ bedside. Pt is A/O at this time and answers all questions appropriately. Care providers, pharmacy, and demographics verified at this time. PCP: Deja Specialists: [facility]-cardiology, Chuck-nephrology. Pt also has a conductor road freight and newspaper photo editor in [place] and a bacteriology professor in [place], [place]. Dialysis: [facility], chair time @ 1230. Pt is also established with a Dialysis Center in [place] and has arrangements to begin Dialysis in [place] on Friday. Call placed to [facility] in [place] and spoke with Toni. He was made aware pt is @ [facility] and may not be medically ready to discharge in time to get to [place] for dialysis tx's to begin on Friday. He states pt still has chair time @ [facility] and can continue dialysis there as long as needed until she can get to [place] and begin dialysis tx's there. Pt and both made aware. states he will contact dialysis center in [place] once discharge plan/date is known to let them know when pt will need to start dialysis there. Preferred Pharmacy: [facility] Insurance: [facility] Prescription Benefit: Yrn Arenas Living Will/HPOA: Has both LW and HCPOA, who is her . Copies not on file @ [facility]. Pt and state they are not able to bring in copies to place on file @ [facility], as they think all of the paperwork is in [place]. LNOK: Living Arrangements: Lives in [place] with her for 6 months and then they move to [place] for 6 months every year. They state they were supposed to move to [place] tomorrow (Friday). Home in [place] is a 2-story home, with bedroom and bathroom on 2nd floor. Also has bathroom on ground floor. Pt states able to navigate the steps well, that she just takes them slowly. Pt is independent with personal ADL's and does the laundry and light housekeeping. does the meals and groceries. They have a parquet floor layer's helper come every 2 weeks (in either [place] or [place]) Transportation: Pt states drives self and states no transportation concerns at this time. also drives. DME: [facility] has the following DME: shower chair, lift chair ,rails/grab bars, walker for community distances only Has available, but does not use: [facility]SC, W/C Pt states no need for further DME at this time. HHC/SNF: Hx of SNF in [place] after back surgery and cervical spine surgery. Also hx of HHC in [place]. States has went to OP therapy @ [facility]. Pt denies need for HHC or OP therapy at this time. Pt denies need for SNF or HHC. Also states she does not feel she needs OP therapy at this time either. PT/OT evals pending. CM to follow for discharge planning/needs. Advised pt and to ask for CM if any further questions/concerns/needs arise. Voices understanding. PLAN: Home w/spousal or daughter support and discharge plans in place. and pt state that if pt is not medically ready to be discharged in time to get to [place] for her dialysis treatment on Friday, that their daughter, who lives in [place], is planning on coming to [place] to stay with pt and assist her with getting back and forth to dialysis in [place] and then fly her to [place] once she is able to travel there. still plans on leaving [place] tomorrow (Friday). Kae MEDRANO RN CM
--- NOTE | 2019-06-11 11:24 | PN_ITS ---
Subjective: Patient seen and examined. She feels better today. She did not have any tachycardia or shortness of breath overnight. She denies any chest pain no swelling in his lower extremities. Review of systems otherwise negative. Labs and vitals reviewed. Cardiology on board. Vitals/I&O's: Vital Signs Temp Pulse Resp BP Pulse Ox 98.1 F 66 18 156/71 H 96 06/11/19 05:15 06/11/19 07:24 06/11/19 05:15 06/11/19 05:15 06/11/19 05:15 Oxygen Flow Rate (L/min) 2 Oxygen Delivery Method Nasal Cannula Weight: 109 lb 5.588 oz Body Mass Index (BMI) 16.7 Intake and Output for Last 24 Hours 06/09/19 06/10/19 06/11/19 23:59 23:59 23:59 Intake Total 300 / 420 240 / 240 Balance 300 / 420 240 / 240 General: Alert, Oriented x3, Cooperative, HEENT: Atraumatic, PERRLA, EOMI, Normocephalic Oral: Moist Mucosa Neck: Supple, No JVD, Negative Carotid Bruits Lungs: - - mildly decreased breath sounds bibasally, no wheezes or crackles. Cardiovascular: Normal S1, Normal S2, No murmurs, Irregular Rate and irregular rhythm Abdomen: Bowel Sounds Present, Soft, Non Tender, Non-Distended, No Hepato- splenomegaly Extremities: No clubbing, No cyanosis, No edema, Capillary Refill Less than 3 Seconds Skin: No rashes, No breakdown, AV fistula with palpable thrill in LUE Musculoskeletal: No Tenderness to Palpation of Joints or Extremities Lymphatic: No Cervical, Supraclavicular, or Inguinal Adenopathy Neurological: Cranial nerves II-XII grossly intact, Neuro grossly intact, Motor Exam 5/5 strength throughout Psych/Mental Status: Alert and oriented to time, place, person, mood and affect Laboratory Results 06/10/19 09:10: B-Natriuretic Peptide 2878.1 H 06/10/19 12:25: Troponin I 0.239 H 06/10/19 15:28: Troponin I 0.219 H 06/11/19 05:00: WBC 7.9, RBC 2.32 L, Hgb 8.0 L, Hct 25.2 L, MCV 108.6 H, MCH 34.5 H, MCHC 31.7 L, RDW Std Deviation 55.2 H, RDW Coeff of [place] 13.8, Plt Count 104 L, MPV 9.6, Immature Gran % (Auto) 0.400, Neut % (Auto) 83.7 H, Lymph % (Auto) 8.6 L, [place] % (Auto) 6.2, Eos % (Auto) 0.8, Baso % (Auto) 0.3, Absolute Neuts (auto) 6.7, Absolute Lymphs (auto) 0.68 L, Nucleated RBC % 0 06/11/19 05:00: Sodium 141, Potassium 5.8 H, Chloride 107, Carbon Dioxide 30.0, Anion Gap 4 L, BUN 45 H, Creatinine 4.80 H, Estim Creat Clear Calc 7.23, Est GFR (MDRD) Af Amer 11 L, Est GFR (MDRD) Non-Af 9 L, BUN/Creatinine Ratio 9.4 L, Glucose 101, Calcium 8.3 L Diagnostic Data Chest X-Ray 06/10/19 08:37 IMPRESSION: Acute pulmonary edema with small bibasilar pleural effusions. Electronically Signed: Rahul Pete, at 9:05 EDT Tel , Service support , Current Medications Acetaminophen (Tylenol) 500 mg PO Q8H PRN PRN Reason: FEVER Last Admin: 06/11/19 00:01 Dose: 500 mg Documented by: Albuterol Sulfate (Ventolin Aerosols) 2.5 mg INHALATION Q2H PRN PRN PRN Reason: Shortness of Breath/Wheezing Amlodipine Besylate (Norvasc) 10 mg PO DAILY [facility] Last Admin: 06/11/19 09:28 Dose: 10 mg Documented by: Apixaban (Eliquis) 2.5 mg PO BID [facility] Last Admin: 06/11/19 09:28 Dose: 2.5 mg Documented by: Aspirin (Ecotrin) 81 mg PO DAILY [facility] Last Admin: 06/11/19 09:27 Dose: 81 mg Documented by: Bumetanide (Bumex) 1 mg PO QODAY [facility] Last Admin: 06/10/19 14:09 Dose: Not Given Documented by: Clonidine (Catapres) 0.1 mg PO TID [facility] Last Admin: 06/11/19 05:17 Dose: 0.1 mg Documented by: Dextrose (D50w Syringe) 0 gm IV X1 PRN; Protocol PRN Reason: Hypoglycemia Diltiazem HCl (Cardizem) 30 mg PO Q6 [facility] Last Admin: 06/11/19 05:17 Dose: 30 mg Documented by: Diphenhydramine HCl (Benadryl) 25 mg PO QHS PRN PRN PRN Reason: insomnia Last Admin: 06/11/19 00:01 Dose: 25 mg Documented by: Diphenoxylate HCl/Atropine (Lomotil) 1 tablet PO Q8H PRN PRN PRN Reason: Diarrhea Famotidine (Pepcid) 20 mg PO DAILY [facility] Last Admin: 06/11/19 09:31 Dose: Not Given Documented by: Glucagon () 1 mg IM .X1 PRN PRN Reason: Hypoglycemia Hydralazine HCl (Apresoline) 50 mg PO TID [facility] Last Admin: 06/10/19 13:20 Dose: 50 mg Documented by: Isosorbide Mononitrate (Imdur) 60 mg PO DAILY [facility] Losartan Potassium (Cozaar) 50 mg PO DAILY [facility] Last Admin: 06/11/19 09:27 Dose: 50 mg Documented by: Magnesium Oxide (Mag-Ox 400) 400 mg PO DAILY [facility] Last Admin: 06/11/19 09:28 Dose: 400 mg Documented by: Nutritional Formula (Lactose Free) (Ensure Enlive) 120 ml PO 4X/DAY [facility] Last Admin: 06/11/19 09:31 Dose: Not Given Documented by: Pred[facility]one () [facility] Last Admin: 06/11/19 09:28 Dose: 5 mg Documented by: Promethazine HCl (Phenergan Tablet) 12.5 mg PO DAILY [facility] Last Admin: 06/11/19 09:30 Dose: 12.5 mg Documented by: Sevelamer Carbonate (Renvela) 800 mg PO DAILY [facility] Last Admin: 06/11/19 09:27 Dose: 800 mg Documented by: Sodium Chloride () 5 - 15 ml IV UD PRN PRN Reason: SALINE FLUSH Last Admin: 06/10/19 14:15 Dose: 10 ml Documented by: Medical Necessity - Tobacco Use Smoking Status: Former smoker Assessment/Plan All Active Problems (Last Reviewed 05/19/19 @ 16:37 by Mae Ordonez) Respiratory failure (Resolved 07/18/18) ESRD (end stage renal disease) (Acute) Nausea & vomiting (Acute) Diverticulitis (Acute) 79 y/o admitted with a complaint of sudden onset of shortness of breath 1. Nonstemi * troponin was 0.152->0.239->0.219 * EKG initially showed lateral T wave inversions, and later resolved with subsequent EKG * cardiology on board- to decide about need for further workup * does have a history of CAD with placement of bare metal stent in [facility] * admit to PCU with telemetry * SL nitroglycerin prn; PO aspirin 81mg daily * on eliquis * * 2. Afib with RVR * heart rate now rate controlled * on eliquis; not on beta ronnie o/a of history of bradycardia * now on cardizem 30mg q6 * 2D echo; normal LV size, with concentric LV hypertrophy and Ef of 50-55%; stage 2 diastolic dysfunction and no regional wall motion abnormalities noted. LA moderately enlarged, unable to estimate RVSP; moderate sized pleural effusion * cardiology on board * * 3. acute exacerbation of HFpEF * CXR showed acute pulmonary edema; this may also be due to flash pulmonary edema from Afib with RVR * received one dose of IV lasix in ED. * BNP was ~ 2878; despite ESRD, BNP is markedly elevated and likely due to heart failure exacerbation * give one dose of IV lasix 40mg * to have dialysis today; this will help with fluid removal * echo as under 2. * 4. Hyperkalemia: K is 5.8. Likely due to ESRD. For dialysis today 5. ESRD: on HD MWF. Cr is 3.57. Nephrology consulted. On sevelamer 6. Hypertension: * Bp elevated at 176/87. On amlodipine, hydralazine and telmisartan. Hydralazine on hold o/a of afib with RVR. IV lopressor prn 6. CAD s/p stent * She had bare-metal stent placement on 07/26/2013 in [facility]. also had anterolateral papillary muscle catheter ablation by Dr Centeno in October 2018 in [facility] * Echo as under 2. 7.Sjogren's syndrome: on prednisone 5mg daily DVT prophylaxis: on eliquis Code status: full code * Code Visit Inpatient E&M: 96011 Subs Hosp L3
--- NOTE | 2019-06-11 14:07 | PCM.CONS.R ---
Problem List (1) ESRD (end stage renal disease) Status: Acute Consultation - Renal 06/11/19 PCP/ Referring MD: Requesting physician: Dr bermudez Primary care physician: Omar Short MD Reason for Consultation:: esrd - History of Present Illness History of Present Illness: The patient is a 79 year old F well known to us. ESRD on HD MWF schedule. last HD friday. presented with sudden onset dyspnea. found to be in AFIB and fluid overload. some troponin elevation. seen on HD today. feels better. seen by cardiology - Allergies Allergies: Allergies hydrocodone Allergy (Verified 06/10/19 08:24) deathly ill sulfamethoxazole [From Bactrim] Allergy (Verified 06/10/19 08:24) Swelling trimethoprim [From Bactrim] Allergy (Verified 06/10/19 08:24) Swelling Sulfa (Sulfonamide Antibiotics) Adverse Reaction (Verified 06/10/19 08:24) Angioedema - Current Medications Current Medications: Current Medications Acetaminophen (Tylenol) 500 mg PO Q8H PRN PRN Reason: FEVER Last Admin: 06/11/19 00:01 Dose: 500 mg Documented by: Albuterol Sulfate (Ventolin Aerosols) 2.5 mg INHALATION Q2H PRN PRN PRN Reason: Shortness of Breath/Wheezing Amlodipine Besylate (Norvasc) 10 mg PO DAILY [facility] Last Admin: 06/11/19 09:28 Dose: 10 mg Documented by: Apixaban (Eliquis) 2.5 mg PO BID [facility] Last Admin: 06/11/19 09:28 Dose: 2.5 mg Documented by: Aspirin (Ecotrin) 81 mg PO DAILY [facility] Last Admin: 06/11/19 09:27 Dose: 81 mg Documented by: Bumetanide (Bumex) 1 mg PO QODAY [facility] Last Admin: 06/10/19 14:09 Dose: Not Given Documented by: Clonidine (Catapres) 0.1 mg PO TID [facility] Last Admin: 06/11/19 05:17 Dose: 0.1 mg Documented by: Dextrose (D50w Syringe) 0 gm IV X1 PRN; Protocol PRN Reason: Hypoglycemia Diltiazem HCl (Cardizem) 30 mg PO Q6 [facility] Last Admin: 06/11/19 12:10 Dose: 30 mg Documented by: Diphenhydramine HCl (Benadryl) 25 mg PO QHS PRN PRN PRN Reason: insomnia Last Admin: 06/11/19 00:01 Dose: 25 mg Documented by: Diphenoxylate HCl/Atropine (Lomotil) 1 tablet PO Q8H PRN PRN PRN Reason: Diarrhea Famotidine (Pepcid) 20 mg PO DAILY [facility] Last Admin: 06/11/19 09:31 Dose: Not Given Documented by: Glucagon () 1 mg IM .X1 PRN PRN Reason: Hypoglycemia Hydralazine HCl (Apresoline) 50 mg PO TID [facility] Last Admin: 06/10/19 13:20 Dose: 50 mg Documented by: Isosorbide Mononitrate (Imdur) 60 mg PO DAILY [facility] Last Admin: 06/11/19 12:09 Dose: Not Given Documented by: Losartan Potassium (Cozaar) 50 mg PO DAILY [facility] Last Admin: 06/11/19 09:27 Dose: 50 mg Documented by: Magnesium Oxide (Mag-Ox 400) 400 mg PO DAILY [facility] Last Admin: 06/11/19 09:28 Dose: 400 mg Documented by: Nutritional Formula (Lactose Free) (Ensure Enlive) 120 ml PO 4X/DAY [facility] Last Admin: 06/11/19 09:31 Dose: Not Given Documented by: Prednisone () 5 mg PO DAILYCM [facility] Last Admin: 06/11/19 09:28 Dose: 5 mg Documented by: Promethazine HCl (Phenergan Tablet) 12.5 mg PO DAILY [facility] Last Admin: 06/11/19 09:30 Dose: 12.5 mg Documented by: Sevelamer Carbonate (Renvela) 800 mg PO DAILY [facility] Last Admin: 06/11/19 09:27 Dose: 800 mg Documented by: Sodium Chloride () 5 - 15 ml IV UD PRN PRN Reason: SALINE FLUSH Last Admin: 06/10/19 14:15 Dose: 10 ml Documented by: - Past Medical History Past Medical History (Chronic Problems): Chronic Problems (Last Reviewed 05/19/19 @ 16:37 by Mae Ordonez) History of non-ST elevation myocardial infarction (NSTEMI) (Chronic 07/18/18) Related to respiratory failure: Echo showed EF 30% with multiple segment abnormalities (EF since then has improved to date). Diabetes mellitus, type II (Chronic) Atherosclerotic heart disease of [place] coronary artery without angina pectoris (Chronic) 30% narrowing at distal left main; 30-40% proximal lesion; 50% proximal lesion in mid diagonal; stent widely patent in CX with no in-stent restenosis. 20% narrowing in distal CX. 20% narrowing in proximal RCA. Right iliofemoral angiogram: High bifurcation of the SFA/profunda famoral arteries. Arteriotomy is in the SFA. Lines removed without closure devices. Stented coronary artery (Chronic 07/26/13) 2.5 X 24 mm bare metal Express2 stent per Dr. Ayla Mills @ [facility] History of left heart catheterization (Chronic 07/13/14) Cath done @ [facility] for eval for renal transplant: 30% narrowing at distal left main; 30-40% proximal lesion; 50% proximal lesion in mid diagonal; stent widely patent in CX with no in-stent restenosis. 20% narrowing in distal CX. 20% narrowing in proximal RCA. Right iliofemoral angiogram: High bifurcation of the SFA/profunda famoral arteries. Arteriotomy is in the SFA. Lines removed without closure devices. Previous cath done 07/21/13 at same facility done for abnormal stress: Left main 20-30%. FFR of LAD, 40% proximal lesion.Diagonal 1 75% proximal occlusion, small vessel; not clinically relevant. 75% proximal CX lesion (see stent on problem list); RCA no obstructive disease. History of radiofrequency ablation (RFA) procedure for cardiac arrhythmia (Chronic 10/29/18) For frequent symptomatic PVC's per Dr. Centeno, [facility] in [place], [place] Paroxysmal atrial fibrillation (Chronic) Atrial dilatation, bilateral (Chronic) Moderate per echo 10/29/2018 Concentric left ventricular hypertrophy (Chronic) Mild per echo 10/29/18, EF 55-60%. [facility] Pericardial effusion (Chronic) Minimal per echo 10/29/2018, [place], [place] Nonrheumatic tricuspid (valve) insufficiency (Chronic) Mild, RVSP 36.6 Per echo 10/29/18 done @ [place], [place] Nonrheumatic mitral valve regurgitation (Chronic) Mild to Moderate per echo 10/29/18, [facility] Hemodialysis patient (Chronic) Meme [place], [place] AV fistula (Chronic) left forearm Anemia of chronic kidney failure (Chronic) Hypertension (Chronic) Hyperlipidemia (Chronic) Pulmonary fibrosis (Chronic) Chronic steroid use (Chronic) Sjogrens syndrome (Chronic) GERD (gastroesophageal reflux disease) (Chronic) Hyperuricemia (Chronic) Diarrhea (Chronic) History of total abdominal hysterectomy (Chronic) History of umbilical hernia repair (Chronic ~2013) History of cholecystectomy (Chronic) History of thumb surgery (Chronic ~2009) right thumb History of esophagogastroduodenoscopy (EGD) (Chronic) History of colonoscopy (Chronic 09/01/13) History of cervical spinal surgery (Chronic) Gout (Chronic) - Past Surgical History Surgical History: cholecystectomy, hysterectomy, - - Social History Smoking Status: Former smoker - Family History Maternal Family History: Family History (Last Reviewed 05/19/19 @ 16:37 by Mae Ordonez) Mother CVA (cerebral vascular accident) Father CAD (coronary artery disease) Brother CAD (coronary artery disease) Myocardial infarction Brother CVA (cerebral vascular accident) History Items: No pertinent history Review of Systems Constitutional: Denies: Chills, Fever, Weight Change HEENT: Denies: Head Aches, Sinus Congestion, Sinus Drainage Cardiovascular: Denies: Chest Pain, Palpitations Respiratory: Denies: Cough, Shortness of breath at rest, Sputum production Gastrointestinal: Denies: Abdominal Pain, Nausea, Vomiting Genitourinary: Denies: Dysuria Musculoskeletal: Denies: Joint Pain, Joint Tenderness Skin: Denies: Rash, Wounds Neurological: Denies: Numbness, Tingling, Focal weakness Psychiatric: Denies: Anxiety, Depression, Homicidal Ideations, Suicidal Ideations Hematologic/ Lymphatic: Denies: Easy Bruising, Easy Bleeding - Physical Exam General: Alert, Oriented x3, Cooperative HEENT: Atraumatic, PERRLA, EOMI, Normocephalic Neck: Supple, No JVD, Negative Carotid Bruits Lungs: Clear to auscultation, Normal air movement Cardiovascular: Regular rate, No murmurs Abdomen: Bowel Sounds Present, Soft, Non Tender Extremities: No edema, Capillary Refill Less than 3 Seconds Skin: No rashes, No breakdown Musculoskeletal: No Tenderness to Palpation of Joints or Extremities Neurological: Cranial nerves II-XII grossly intact Psych/Mental Status: Normal Affect, Appropriate Vital Signs Temp Pulse Resp BP Pulse Ox 97.7 F L 80 18 117/75 96 06/11/19 11:15 06/11/19 11:15 06/11/19 11:15 06/11/19 11:15 06/11/19 11:15 Oxygen Flow Rate (L/min) 2 Oxygen Delivery Method Room Air Weight: 49.6 kg Body Mass Index (BMI) 16.7 Intake and Output for Last 24 Hours 06/09/19 06/10/19 06/11/19 23:59 23:59 23:59 Intake Total 300 / 420 240 / 240 Balance 300 / 420 240 / 240 Laboratory Tests Past 24 Hrs 06/10/19 06/10/19 06/11/19 09:10 15:28 05:00 WBC 7.9 RBC 2.32 L Hgb 8.0 L Hct 25.2 L MCV 108.6 H MCH 34.5 H MCHC 31.7 L RDW Std Deviation 55.2 H RDW Coeff of Allison 13.8 Plt Count 104 L MPV 9.6 Immature Gran % (Auto) 0.400 Neut % (Auto) 83.7 H Lymph % (Auto) 8.6 L [place] % (Auto) 6.2 Eos % (Auto) 0.8 Baso % (Auto) 0.3 Absolute Neuts (auto) 6.7 Absolute Lymphs (auto) 0.68 L Nucleated RBC % 0 Sodium Potassium Chloride Carbon Dioxide Anion Gap BUN Creatinine Estim Creat Clear Calc Est GFR (MDRD) Af Amer Est GFR (MDRD) Non-Af BUN/Creatinine Ratio Glucose Calcium Troponin I 0.219 H B-Natriuretic Peptide 2878.1 H 06/11/19 05:00 WBC RBC Hgb Hct MCV MCH MCHC RDW Std Deviation RDW Coeff of Allison Plt Count MPV Immature Gran % (Auto) Neut % (Auto) Lymph % (Auto) [place] % (Auto) Eos % (Auto) Baso % (Auto) Absolute Neuts (auto) Absolute Lymphs (auto) Nucleated RBC % Sodium 141 Potassium 5.8 H Chloride 107 Carbon Dioxide 30.0 Anion Gap 4 L BUN 45 H Creatinine 4.80 H Estim Creat Clear Calc 7.23 Est GFR (MDRD) Af Amer 11 L Est GFR (MDRD) Non-Af 9 L BUN/Creatinine Ratio 9.4 L Glucose 101 Calcium 8.3 L Troponin I B-Natriuretic Peptide Assessment/Plan All Active Problems (Last Reviewed 05/19/19 @ 16:37 by Mae Ordonez) Respiratory failure (Resolved 07/18/18) ESRD (end stage renal disease) (Acute) Nausea & vomiting (Acute) Diverticulitis (Acute) ESRD. HD today. see orders/ flowsheets Dyspnea. CXr appears wet. she is 2 kg below EDW. will try for another 2-3 L AFIB. rate controlled d/w Dr Bermudez stress test today after HD
--- NOTE | 2019-06-11 16:22 | EKG12_ITS ---
Test Reason : RHYTHM Blood Pressure : / mmHG Vent. Rate : 088 BPM Atrial Rate : 088 BPM P-R Int : 228 ms QRS Dur : 096 ms QT Int : 396 ms P-R-T Axes : 034 016 195 degrees QTc Int : 479 ms Sinus rhythm with 1st degree A-V block Left ventricular hypertrophy with repolarization abnormality Abnormal ECG When compared with ECG of 10-JUN-2019 09:32, MANUAL COMPARISON REQUIRED, DATA IS UNCONFIRMED Confirmed by RICKIE CAT ([id number]), book or script editor EMILY NUNEZ ([id number]) on 06/16/2019 10:41:59 AM Referred By: Ct Pacheco Confirmed By:RICKIE CAT
--- NOTE | 2019-06-11 16:54 | DIALYSIS ---
Pt tolerated 2.75hr HD tx well. Net UF -2000ml. See flow record for tx data.
--- NOTE | 2019-06-11 17:10 | PCM.PN.CARD ---
Subjectve: Patient's shortness of breath has improved and is at baseline. She does have fatigue. However her states that she does get fatigue every time after dialysis. This time she ended up getting about 2 L of fluid removed as well. She does complain of a cough. It is productive of white sputum. Objective: Vital Signs Temp Pulse Resp BP Pulse Ox 98.7 F 58 L 20 H 161/81 H 96 06/11/19 16:00 06/11/19 16:00 06/11/19 16:00 06/11/19 16:00 06/11/19 11:15 Oxygen Flow Rate (L/min) 2 Oxygen Delivery Method Nasal Cannula Weight: 109 lb 5.588 oz Body Mass Index (BMI) 16.7 Intake and Output for Last 24 Hours 06/09/19 06/10/19 06/11/19 23:59 23:59 23:59 Intake Total 300 / 420 720 / 720 Output Total 1999 / 1999 Balance 300 / 420 -1280 / -1280 General: Awake, Alert, Oriented x 3 HEENT: Atraumatic Oral: Moist Mucosa Neck: Supple Lungs: Rales - Jasmeet Bases Cardiovascular: Normal S1, Normal S2 Abdomen: Soft Extremities: No edema Skin: No Rashes Psych/Mental Status: Appropriate 06/11/19 05:00: WBC 7.9, RBC 2.32 L, Hgb 8.0 L, Hct 25.2 L, MCV 108.6 H, MCH 34.5 H, MCHC 31.7 L, Plt Count 104 L, MPV 9.6, Immature Gran % (Auto) 0.400, Neut % (Auto) 83.7 H, Lymph % (Auto) 8.6 L, [place] % (Auto) 6.2, Eos % (Auto) 0.8, Baso % (Auto) 0.3, Absolute Neuts (auto) 6.7, Nucleated RBC % 0 06/11/19 05:00: Sodium 141, Potassium 5.8 H, Chloride 107, Carbon Dioxide 30.0, Anion Gap 4 L, BUN 45 H, Creatinine 4.80 H, Est GFR (MDRD) Af Amer 11 L, Est GFR (MDRD) Non-Af 9 L, BUN/Creatinine Ratio 9.4 L, Glucose 101, Calcium 8.3 L Rhythm: EKG: ECHO: Stress Test: Cardiac Cath: PCI: CT Surgery: Holter monitor: EPS: PPM: CXR: Chest CT Scan: Medical Necessity - Tobacco Use Smoking Status: Former smoker Assessment/Plan 1. Shortness of breath: Patient appears to be in heart failure. Her last echo revealed preserved EF and stage II diastolic dysfunction. Patient is currently in sinus rhythm and feels better. She has history of paroxysmal atrial fibrillation and usually is in sinus rhythm. It is possible that patient went into A. fib with RVR and this precipitated heart failure. Overall she has improved. 2. Elevated cardiac enzymes: This could be related to a combination of A. fib with RVR, congestive heart failure, underlying coronary artery disease. Patient does have 70% stenosis in a small diagonal branch. Continue medical therapy at this time. 3. Paroxysmal atrial fibrillation: Doing well on Eliquis, and Cardizem. Currently in sinus rhythm.
[2019-06-12] VITALS (12 sets, daily range): BP systolic 132–182; BP diastolic 64–75; PULSE 67–153; RESP 16–18; TEMP 36.7–37.7; O2SAT 94–99
[2019-06-12] MEDS: 0.9% NaCl Peripheral Flush Adult/Peds IV ×4 (00:03→21:07)
[2019-06-12] MEDS: proCHLORPERazine 10 MG/2 ML Vial 5 MG IV (00:04)
[2019-06-12 01:21] LABS: Bedside Glucose 132 mg/dL (70-110)
[2019-06-12] MEDS: dilTIAZem 30 MG Tablet PO ×2 (05:36→12:54)
[2019-06-12] MEDS: cloNIDine HCl 0.1 MG Tablet PO ×3 (05:36→21:07)
[2019-06-12 08:36] LABS: Absolute Lymphocyte Count 0.95 X10^3/uL (0.83-4.51); Absolute Neutrophil Count 9.2 X10^3/uL (2.0-7.7); Basophil# 0.02 X10^3/uL; Basophil% 0.2 % (0-1); Eosinophil# 0.08 X10^3/uL; Eosinophils% 0.7 % (0-5); Hematocrit 30.6 % (37-47); Hemoglobin 9.9 g/dL (12.0-15.0); Lymphocyte # 0.95 X10^3/ul (4.0); Lymphocyte % 8.5 % (19-41); Mean Corp Hgb Conc 32.4 g/dL (32-36); Mean Corpuscular Hgb 34.6 pg (27.0-32.0); Mean Platelet Vol. 9.4 fl (6.2-12.0); Monocyte# 0.89 X10^3/uL; Monocyte% 7.9 % (0-10); NRBC Flagged by Analyzer 0 % (0-5); Neutrophil # 9.21 X10^3/uL (2.7-7.7); Neutrophil % 82.2 % (47-70); Platelet Count 147 K/mm3 (150-450); RBC Distribution Width CV 13.6 % (11.6-14.6); RBC Distribution Width SD 53.6 fl (35.1-43.9); Red Blood Count 2.86 M/mm3 (4.2-5.4); White Blood Count 11.2 K/mm3 (4.4-11.0)
[2019-06-12 09:05] LABS: Anion Gap 7 (5-15); BUN 29 mg/dL (7-18); BUN/Creat Ratio 7.8 RATIO (10-20); Calcium,Total 8.3 mg/dL (8.5-10.1); Chloride 101 mmol/L (98-107); Creatinine, Serum 3.72 mg/dL (0.55-1.02); EST Glomerular Filtration Rate 13 mL/min (>60); Est Glom Filt Rate - Afr Amer 15 mL/min (>60); Estimated Creatinine Clearance 9.51 ml/min; Glucose 93 mg/dL (74-106); Potassium 4.8 mmol/L (3.5-5.1); Sodium Level 138 mmol/L (136-145)
--- NOTE | 2019-06-12 09:25 | RAD_ITS ---
STUDY: X-RAY CHEST REASON FOR EXAM: Female, 79 years old. Cough TECHNIQUE: Single AP portable view of the chest. COMPARISON: June 10, 2017 chest x-ray FINDINGS: There is left lower lobe patchy opacity. There is a blunted appearance of the right costophrenic angle. There is an underlying pattern of increased interstitial markings with a overall hazy groundglass appearance to the lungs. Normal size heart. Normal mediastinum and [place]. Normal visualized pulmonary arteries. There is atherosclerotic calcification of the aortic arch with tortuosity. There are diffuse degenerative changes of the visualized thoracic spine. Normal visualized ribs, clavicles, and shoulders. There is no demonstrated abnormality of the visualized soft tissue structures of the upper abdomen. RAD/Chest 1 View (Portable) IMPRESSION: Findings suspicious for mild edema small bilateral pleural effusions superimposed on possible underlying chronic lung disease with asymmetric focal opacity left lower lobe suspicious for pneumonia Electronically Signed: Tami Noriega MD at 10:13 EDT Tel , Service support ,
[2019-06-12] MEDS: Aspirin E.C. 81 MG Tablet PO (09:38)
[2019-06-12] MEDS: Bumetanide 0.5 MG Tablet 1 MG PO (09:38)
[2019-06-12] MEDS: predniSONE 5 MG Tablet PO (09:38)
[2019-06-12] MEDS: amLODIPine 10 MG Tablet PO (09:38)
[2019-06-12] MEDS: APIXABAN 2.5 MG TABLET PO ×2 (09:39→21:07)
[2019-06-12] MEDS: Losartan Potassium 50 MG Tablet PO (09:39)
[2019-06-12] MEDS: proMETHazine 25 MG Tablet 12.5 MG PO (09:40)
[2019-06-12] MEDS: SEVELAMER CARBONATE 800 MG TABLET PO (09:40)
[2019-06-12] MEDS: Famotidine 20 MG Tablet PO (09:41)
[2019-06-12] MEDS: Magnesium Oxide 400 MG Tablet PO (09:41)
[2019-06-12] MEDS: Isosorbide Mononitrate 60 MG Tablet PO (09:42)
[2019-06-12] MEDS: guaiFENesin 10 ML UDC (200MG/10ML) PO ×3 (09:43→21:07)
--- NOTE | 2019-06-12 11:27 | PCM.DC ---
You will use the following diet at home:: Renal (restricted protein/sodium) Your food should be the consistency of: Regular Your liquids should be the consistency of: Regular/Thin Discharge Activity: Return to Normal Activity Weight Bearing Status: Weight bearing as tolerated Call your doctor if you observe: Fever of 101 or Higher, Shortness of breath, Swelling in the ankles, Chest pain, Increased palpitations (irregular heartbeat) Instructions: Atrial Fibrillation, What Is Pneumonia?, What Is Heart Failure? Additional Instructions: please follow up with science technicians in [place], [place] as soon as you return to [place] in the next week Allergies/Adverse Reactions: Allergies hydrocodone Allergy (Verified 06/10/19 08:24) deathly ill sulfamethoxazole [From Bactrim] Allergy (Verified 06/10/19 08:24) Swelling trimethoprim [From Bactrim] Allergy (Verified 06/10/19 08:24) Swelling Sulfa (Sulfonamide Antibiotics) Adverse Reaction (Verified 06/10/19 08:24) Angioedema Medications to take at Discharge Magnesium 60 mg PO DAILY 02/16/14 hydrALAZINE [Apresoline] 50 mg PO TID 02/16/18 Bumetanide 1 mg PO QODAY 01/07/19 Saccharomyces Boulardii [Florastor] 1 cap PO DAILY 01/07/19 Telmisartan [Micardis] 40 mg PO DAILY 01/07/19 acetaminophen 500 mg tablet 500 mg PO Q8H PRN tab 03/05/19 amlodipine 10 mg tablet 10 mg PO DAILY 03/05/19 apixaban 2.5 mg tablet 2.5 mg PO BID 03/05/19 aspirin 81 mg tablet,delayed release 81 mg PO DAILY 03/05/19 bismuth subsalicylate 262 mg/15 mL oral suspension 524 mg PO Q30-60M PRN 03/05/19 sevelamer carbonate 800 mg tablet 800 mg PO DAILY tab 03/05/19 clonidine HCl 0.1 mg tablet 0.1 mg PO TID tab 03/23/19 prednisone 5 mg tablet 5 mg PO DAILY 05/25/19 Diphenoxylate HCl/Atropine [Lomotil 2.5-0.025 mg Tablet] 1 tab PO Q8H PRN PRN 06/10/19 Famotidine 20 mg PO DAILY 06/10/19 Isosorbide Mononitrate [Isosorbide Mononitrate ER] 60 mg PO DAILY 06/10/19 Nitroglycerin 0.4 mg SL PRN PRN 06/10/19 proMETHazine tablet [Phenergan tablet] 12.5 mg PO DAILY 06/10/19 Diltiazem CD [Cardizem CD] 120 mg PO DAILY #30 cap 06/12/19 Doxycycline 100 mg PO BID 7 Days #14 cap 06/12/19 The following prescriptions were given: Diltiazem CD [Cardizem CD] 120 mg PO DAILY #30 cap Prescription Printed Doxycycline 100 mg PO BID 7 Days #14 cap Prescription Printed Primary Care Physician: Omar Short MD [Primary Care Provider] - Please follow up with your Primary Care Physician in: one week Test Results: Test results from this visit will be discussed in further detail at your follow-up appointment, if applicable. Proposed Discharge Date: 06/12/19
--- NOTE | 2019-06-12 11:29 | DS.PCM_ITS ---
Discharge Date and Diagnosis Date of Admission: 06/10/19 Date of Discharge: 06/12/19 - Primary Discharge Diagnosis Afib with RVR nonstemi Acute exacerbation of HFpEF community acquired pneumonia - Secondary Discharge Diagnosis Chronic Problems (Last Reviewed 05/19/19 @ 16:37 by Mae Ordonez) History of non-ST elevation myocardial infarction (NSTEMI) (Chronic 07/18/18) Related to respiratory failure: Echo showed EF 30% with multiple segment abnormalities (EF since then has improved to date). Diabetes mellitus, type II (Chronic) Atherosclerotic heart disease of [place] coronary artery without angina pectoris (Chronic) 30% narrowing at distal left main; 30-40% proximal lesion; 50% proximal lesion in mid diagonal; stent widely patent in CX with no in-stent restenosis. 20% narrowing in distal CX. 20% narrowing in proximal RCA. Right iliofemoral angiogram: High bifurcation of the SFA/profunda famoral arteries. Arteriotomy is in the SFA. Lines removed without closure devices. Stented coronary artery (Chronic 07/26/13) 2.5 X 24 mm bare metal Express2 stent per Dr. Ayla Mills @ [facility] History of left heart catheterization (Chronic 07/13/14) Cath done @ [facility] for eval for renal transplant: 30% narrowing at distal left main; 30-40% proximal lesion; 50% proximal lesion in mid diagonal; stent widely patent in CX with no in-stent restenosis. 20% narrowing in distal CX. 20% narrowing in proximal RCA. Right iliofemoral angiogram: High bifurcation of the SFA/profunda famoral arteries. Arteriotomy is in the SFA. Lines removed without closure devices. Previous cath done 07/21/13 at same facility done for abnormal stress: Left main 20-30%. FFR of LAD, 40% proximal lesion.Diagonal 1 75% proximal occlusion, small vessel; not clinically relevant. 75% proximal CX lesion (see stent on problem list); RCA no obstructive disease. History of radiofrequency ablation (RFA) procedure for cardiac arrhythmia (Chronic 10/29/18) For frequent symptomatic PVC's per Dr. Centeno, [facility] in [place], [place] Paroxysmal atrial fibrillation (Chronic) Atrial dilatation, bilateral (Chronic) Moderate per echo 10/29/2018 Concentric left ventricular hypertrophy (Chronic) Mild per echo 10/29/18, EF 55-60%. [facility] Pericardial effusion (Chronic) Minimal per echo 10/29/2018, [place], [place] Nonrheumatic tricuspid (valve) insufficiency (Chronic) Mild, RVSP 36.6 Per echo 10/29/18 done @ [place], [place] Nonrheumatic mitral valve regurgitation (Chronic) Mild to Moderate per echo 10/29/18, [facility] in [place] Hemodialysis patient (Chronic) Chela, Meme, Sat AV fistula (Chronic) left forearm Anemia of chronic kidney failure (Chronic) Hypertension (Chronic) Hyperlipidemia (Chronic) Pulmonary fibrosis (Chronic) Chronic steroid use (Chronic) Sjogrens syndrome (Chronic) GERD (gastroesophageal reflux disease) (Chronic) Hyperuricemia (Chronic) Diarrhea (Chronic) History of total abdominal hysterectomy (Chronic) History of umbilical hernia repair (Chronic ~2013) History of cholecystectomy (Chronic) History of thumb surgery (Chronic ~2009) right thumb History of esophagogastroduodenoscopy (EGD) (Chronic) History of colonoscopy (Chronic 09/01/13) History of cervical spinal surgery (Chronic) Gout (Chronic) Hospital Course and Treatment Imaging Results: 06/12/19 09:25 CXR [Chest 1 View (Portable)] [RAD] Urgent nephrology- Dr Woods cardiology- Dr Singh Operations: None Procedures: 2-D Echocardiogram Summary of Care Provided: The patient is a 79 year old F with an extensive past medical history as listed. She was admitted to the ED on 06/10/2019 with a complaint of shortness of breath was started around 2 AM of morning of admission. Shortness of breath was abrupt in onset and associated with palpitations. He also complained of generalized weakness but denied any chest pain or dizziness or lightheadedness, diarrhea or vomiting. Patient has dialysis on Wednesdays and Fridays had dialysis one day prior to admission. She states she did not have a lot of fluid taken off as she is below her dry weight. Review of systems is otherwise negative. On admission in the ED, vitals were significant for elevated blood pressure of 136/87 and she was tachypneic with respiratory rate at 24. Heart rate was 103 per chart and she was immediately put on BiPAP. Heart rate improved. She was in A. fib. Initial troponin was 0.152 and creatinine was 3.57. CBC showed hemoglobin of 9.2 and chest x-ray showed acute pulmonary edema with small bibasilar pleural effusions. EKG done showed A. fib with RVR at 121 on admission with T wave inversions laterally. Repeat EKG showed resolution of lateral T wave inversions. She was admitted to be managed for A. fib with RVR and non-STEMI. Nephrology was consulted and cardiology was also consulted. Troponin trended up to 0.23 dilated 0.219. BNP was markedly elevated at around 2878. Congestive also managed for acute exacerbation of heart failure with preserved ejection fraction though there was also thought that this could be due to flash pulmonary edema from A. fib with RVR. 2D echo done showed EF of 50 to 55% with normal left ventricular size and concentric left ventricular hypertrophy with stage II diastolic dysfunction and moderately enlarged left atrium unable to estimate RVSP. Nephrology was also consulted on account of ESRD needing hemodialysis. Patient was started on Lasix but she could not diuresed very well. She ended up having dialysis which removed 2 L of fluid and help with the shortness of breath markedly. Cardiology started patient on p.o. Cardizem to help with her A. fib. Patient had not been on metoprolol or any beta-tacho on account of history of bradycardia. 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 Patient symptoms improved significantly and she felt much better. REpeat CXR done showed evidence of left lower lobe pneumonia. She was started on IV ceftriaxone and azithromycin. Patient however insisted on being discharged home as she felt better and wanted to get back to [place] where she lives half the year. She was therefore discharged home on 06/12/19 with script for PO doxycycline for one week; she was also put on PO cardizem CD 120mg daily. She is to continue her eliquis. She is to follow up with her PCP, and also to follow up with her senior geotechnical engineer in [place], [place], as soon as she gets there. Patient seen and examined prior to discharge. She does complain of a cough which was productive of mild yellowish sputum. She denies any fever chills, palpitations or dizziness, chest pain, diarrhea vomiting. Review of systems otherwise negative. Patient was very anxious to be discharged. Labs and vitals reviewed. She was noted to have had a slight trend upwards and a white cell count of 11.5. Occasions reviewed and reconciled. o/e: Vital Signs Height 5 ft 7 in Weight: 108 lb 3.951 oz Weight in Pounds 108.2 lbs Pulse Ox 97 Temperature 98.1 F Pulse Rate 97 Respiratory Rate 18 Blood Pressure 182/69 Blood Pressure Position Sitting General: Alert, Oriented x3, Cooperative, HEENT: Atraumatic, PERRLA, EOMI, Normocephalic Oral: Moist Mucosa Neck: Supple, No JVD, Negative Carotid Bruits Lungs: - - clear to auscultation Cardiovascular: Normal S1, Normal S2, No murmurs, Irregular Rate and irregular rhythm Abdomen: Bowel Sounds Present, Soft, Non Tender, Non-Distended, No Hepato- splenomegaly Extremities: No clubbing, No cyanosis, No edema, Capillary Refill Less than 3 Seconds Skin: No rashes, No breakdown, AV fistula with palpable thrill in LUE Musculoskeletal: No Tenderness to Palpation of Joints or Extremities Lymphatic: No Cervical, Supraclavicular, or Inguinal Adenopathy Neurological: Cranial nerves II-XII grossly intact, Neuro grossly intact, Motor Exam 5/5 strength throughout Psych/Mental Status: Alert and oriented to time, place, person, mood and affect Plan as above. - Physical Exam Vital Signs Temp Pulse Resp BP Pulse Ox 98.1 F 97 18 182/69 H 97 06/12/19 10:00 06/12/19 10:00 06/12/19 10:00 06/12/19 10:00 06/12/19 10:00 Oxygen Flow Rate (L/min) 1 Oxygen Delivery Method Nasal Cannula Weight: 108 lb 3.951 oz Body Mass Index (BMI) 16.7 Intake and Output for Last 24 Hours 06/10/19 06/11/19 06/12/19 23:59 23:59 23:59 Intake Total 300 / 420 960 / 960 360 / 360 Output Total 1999 / 1999 Balance 300 / 420 -1040 / -1040 360 / 360 Microbiology Past 72 Hours 06/10/19 09:10 Blood Culture - Preliminary Blood Culture (Wb) - Anticubital Right No growth in 48 hours. Laboratory Tests Past 24 Hrs 06/11/19 06/12/19 06/12/19 16:00 08:06 08:06 WBC 11.2 H RBC 2.86 L Hgb 9.9 L Hct 30.6 L MCV 107.0 H MCH 34.6 H MCHC 32.4 RDW Std Deviation 53.6 H RDW Coeff of Allison 13.6 Plt Count 147 L MPV 9.4 Immature Gran % (Auto) 0.500 Neut % (Auto) 82.2 H Lymph % (Auto) 8.5 L [place] % (Auto) 7.9 Eos % (Auto) 0.7 Baso % (Auto) 0.2 Absolute Neuts (auto) 9.2 H Absolute Lymphs (auto) 0.95 Nucleated RBC % 0 Sodium 138 Potassium 4.8 Chloride 101 Carbon Dioxide 30.0 Anion Gap 7 BUN 29 H Creatinine 3.72 H Estim Creat Clear Calc 9.51 Est GFR (MDRD) Af Amer 15 L Est GFR (MDRD) Non-Af 13 L BUN/Creatinine Ratio 7.8 L Glucose 93 Calcium 8.3 L Hep Bs Antigen Pending POC Glucose 06/12/19 01:10 POC Glucose 132 H Discharge Diet: Renal Diet Discharge Activity: Return to Normal Activity Weight Bearing Status: Weight bearing as tolerated Call your doctor if you observe: Fever of 101 or Higher, Shortness of breath, Swelling in the ankles, Chest pain, Increased palpitations (irregular heartbeat) Home Medications: Medications to take at Discharge Magnesium 60 mg PO DAILY 02/16/14 hydrALAZINE [Apresoline] 50 mg PO TID 02/16/18 Bumetanide 1 mg PO QODAY 01/07/19 Saccharomyces Boulardii [Florastor] 1 cap PO DAILY 01/07/19 Telmisartan [Micardis] 40 mg PO DAILY 01/07/19 acetaminophen 500 mg tablet 500 mg PO Q8H PRN tab 03/05/19 amlodipine 10 mg tablet 10 mg PO DAILY 03/05/19 apixaban 2.5 mg tablet 2.5 mg PO BID 03/05/19 aspirin 81 mg tablet,delayed release 81 mg PO DAILY 03/05/19 bismuth subsalicylate 262 mg/15 mL oral suspension 524 mg PO Q30-60M PRN 03/05/19 sevelamer carbonate 800 mg tablet 800 mg PO DAILY tab 03/05/19 clonidine HCl 0.1 mg tablet 0.1 mg PO TID tab 03/23/19 prednisone 5 mg tablet 5 mg PO DAILY 05/25/19 Diphenoxylate HCl/Atropine [Lomotil 2.5-0.025 mg Tablet] 1 tab PO Q8H PRN PRN 06/10/19 Famotidine 20 mg PO DAILY 06/10/19 Isosorbide Mononitrate [Isosorbide Mononitrate ER] 60 mg PO DAILY 06/10/19 Nitroglycerin 0.4 mg SL PRN PRN 06/10/19 proMETHazine tablet [Phenergan tablet] 12.5 mg PO DAILY 06/10/19 Diltiazem CD [Cardizem CD] 120 mg PO DAILY #30 cap 06/12/19 Doxycycline 100 mg PO BID 7 Days #14 cap 06/12/19 Following Prescrptions Were Given to Patient: Diltiazem CD [Cardizem CD] 120 mg PO DAILY #30 cap Prescription Printed Doxycycline 100 mg PO BID 7 Days #14 cap Prescription Printed Primary Care Physician: Omar Short MD [Primary Care Provider] - Please follow up with your Primary Care Physician in: one week Patient Instructions: What Is Heart Failure?, What Is Pneumonia?, Atrial Fibrillation Disposition: Home Minutes spent on discharge:: 45 Patient Condition:: Stable Medical Necessity - Tobacco Use Smoking Status: Former smoker Meaningful Use Info Meaningful Use Diagnoses (Choose all that apply): AMI, CHF - AMI Aspirin given w/in 24hrs of arrival?: Yes ASA at discharge?: Yes Statins at discharge?: No Reason statins not ordered:: Drug Interaction - due to advanced age Rudolph/ARB at discharge?: Yes Beta Tacho at discharge?: No Reason Beta Tacho not ordered:: Worsening renal disease - bradycardia Done w/ Acute [place] measure.: Yes - CHF RUDOLPH/ARB ordered at discharge?: Yes Documented LVEF (%): 55 Code Visit Inpatient E&M: 90731 Disch Hosp
[2019-06-12] MEDS: Ceftriaxone 1 GM/50 ML BAG IV ×2 (11:48→21:07)
[2019-06-12] MEDS: dilTIAZem 25 MG/5 ML Vial IV BOLUS (13:47)
[2019-06-12] MEDS: Ondansetron 4 MG/2 ML Vial IV (13:47)
[2019-06-12] MEDS: dilTIAZem CD 120 MG Capsule PO (15:17)
--- NOTE | 2019-06-12 15:23 | NURSING ---
THIS RN TAKING OVER CARE AT THIS TIME.
--- NOTE | 2019-06-12 20:23 | PCM.PN.REN ---
Subjective: Following for ESRD. Pt denies current SOB. She denies CP. No edema. - Physical Exam General: Alert, Oriented x3 HEENT: Atraumatic, EOMI Oral: Moist Mucosa Neck: Supple Lungs: Diminished - at bases Cardiovascular: Normal S1, Normal S2, No murmurs Abdomen: Soft, Non Tender, Non-Distended Extremities: No clubbing, No cyanosis, No edema Vital Signs Temp Pulse Resp BP Pulse Ox 99.8 F H 67 18 132/75 H 94 06/12/19 14:56 06/12/19 18:59 06/12/19 14:56 06/12/19 14:56 06/12/19 14:56 Oxygen Flow Rate (L/min) 1 Oxygen Delivery Method Room Air Weight: 49.1 kg Body Mass Index (BMI) 16.7 Intake and Output for Last 24 Hours 06/10/19 06/11/19 06/12/19 23:59 23:59 23:59 Intake Total 300 / 420 960 / 960 1130 / 1130 Output Total 1999 / 1999 Balance 300 / 420 -1040 / -1040 1130 / 1130 Microbiology Past 72 Hours 06/12/19 08:36 Respiratory Panel (PCR) - Final Mucosa - Nasopharyngeal 06/10/19 09:10 Blood Culture - Preliminary Blood Culture (Wb) - Anticubital Right No growth in 48 hours. Laboratory Tests Past 24 Hrs 06/12/19 06/12/19 08:06 08:06 WBC 11.2 H RBC 2.86 L Hgb 9.9 L Hct 30.6 L MCV 107.0 H MCH 34.6 H MCHC 32.4 RDW Std Deviation 53.6 H RDW Coeff of Allison 13.6 Plt Count 147 L MPV 9.4 Immature Gran % (Auto) 0.500 Neut % (Auto) 82.2 H Lymph % (Auto) 8.5 L [place] % (Auto) 7.9 Eos % (Auto) 0.7 Baso % (Auto) 0.2 Absolute Neuts (auto) 9.2 H Absolute Lymphs (auto) 0.95 Nucleated RBC % 0 Sodium 138 Potassium 4.8 Chloride 101 Carbon Dioxide 30.0 Anion Gap 7 BUN 29 H Creatinine 3.72 H Estim Creat Clear Calc 9.51 Est GFR (MDRD) Af Amer 15 L Est GFR (MDRD) Non-Af 13 L BUN/Creatinine Ratio 7.8 L Glucose 93 Calcium 8.3 L POC Glucose 06/12/19 01:10 POC Glucose 132 H Medical Necessity - Tobacco Use Smoking Status: Former smoker Assessment/Plan All Active Problems (Last Reviewed 05/19/19 @ 16:37 by Mae Ordonez) Respiratory failure (Resolved 07/18/18) ESRD (end stage renal disease) (Acute) Nausea & vomiting (Acute) Diverticulitis (Acute) 1. ESRD. HD MWF. Was dialyzed yesterday. No need for dialysis today. Next HD is on 06/14/19. Reassess volume status tomorrow. 2. Anemia. Continue JOMAR with dialysis. Monitor Hgb. 3. HTN. BP is acceptable. Continue current BP medications. Keep O>I with HD. 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 Check Ca/P as outpatient. 5. Acute hypoxic respiratory failure. Improved. O>I with HD. 6. NSTEMI. Management as per cardiology.
[2019-06-12] MEDS: DiphenhydrAMINE 25 MG Capsule PO (21:07)
--- NOTE | 2019-06-12 23:52 | PN_ITS ---
Subjective: Patient seen and examined. She complained of a cough which was productive of yellowish sputum this morning. She had no associated fever or chills or shortness of breath. Review of systems was otherwise negative. Plan was for patient to be switched to PO cardizem CD 120mg daily and to be discharged home on PO doxycycline per CXR done today which showed a left lower lobe pneumonia. However, patient became tachycardic and nauseous later during the day. HR went up to the 140s-150s. Discharge was therefore cancelled. Vitals/I&O's: Vital Signs Temp Pulse Resp BP Pulse Ox 98.7 F 71 18 146/67 H 98 06/12/19 21:00 06/12/19 21:00 06/12/19 21:00 06/12/19 21:00 06/12/19 21:00 Oxygen Flow Rate (L/min) 2 Oxygen Delivery Method Nasal Cannula Weight: 108 lb 3.951 oz Body Mass Index (BMI) 16.7 Intake and Output for Last 24 Hours 06/10/19 06/11/19 06/12/19 23:59 23:59 23:59 Intake Total 300 / 420 960 / 960 1620 / 1620 Output Total 1999 / 1999 Balance 300 / 420 -1040 / -1040 1620 / 1620 General: Alert, Oriented x3, Cooperative, No apparent distress HEENT: Atraumatic, PERRLA, EOMI, Normocephalic Oral: Moist Mucosa Neck: Supple, No JVD, Negative Carotid Bruits Lungs: Clear to auscultation, Normal air movement, No rhonchi, No wheeze, No rales Cardiovascular: Irregular Rate - and irregular rhythm, Tachycardic Abdomen: Bowel Sounds Present, Soft, Non Tender Extremities: No clubbing, No cyanosis, No edema, Capillary Refill Less than 3 Seconds Skin: No rashes, No breakdown Musculoskeletal: No Tenderness to Palpation of Joints or Extremities, - - functional AV fistula in LUE Lymphatic: No Cervical, Supraclavicular, or Inguinal Adenopathy Neurological: Cranial nerves II-XII grossly intact, Neuro grossly intact Psych/Mental Status: Normal Affect, Appropriate, Alert and oriented to time, place, person, mood and affect Microbiology Past 72 Hours 06/12/19 08:36 Mucosa - Nasopharyngeal Respiratory Panel (PCR) - Final 06/10/19 09:10 Blood Culture (Wb) - Anticubital Right Blood Culture - Preliminary No growth in 48 hours. Laboratory Results 06/12/19 01:10: POC Glucose 132 H 06/12/19 08:06: WBC 11.2 H, RBC 2.86 L, Hgb 9.9 L, Hct 30.6 L, MCV 107.0 H, MCH 34.6 H, MCHC 32.4, RDW Std Deviation 53.6 H, RDW Coeff of Allison 13.6, Plt Count 147 L, MPV 9.4, Immature Gran % (Auto) 0.500, Neut % (Auto) 82.2 H, Lymph % (Auto) 8.5 L, [place] % (Auto) 7.9, Eos % (Auto) 0.7, Baso % (Auto) 0.2, Absolute Neuts (auto) 9.2 H, Absolute Lymphs (auto) 0.95, Nucleated RBC % 0 06/12/19 08:06: Sodium 138, Potassium 4.8, Chloride 101, Carbon Dioxide 30.0, Anion Gap 7, BUN 29 H, Creatinine 3.72 H, Estim Creat Clear Calc 9.51, Est GFR (MDRD) Af Amer 15 L, Est GFR (MDRD) Non-Af 13 L, BUN/Creatinine Ratio 7.8 L, Glucose 93, Calcium 8.3 L Current Medications Acetaminophen (Tylenol) 500 mg PO Q8H PRN PRN Reason: FEVER Last Admin: 06/11/19 00:01 Dose: 500 mg Documented by: Albuterol Sulfate (Ventolin Aerosols) 2.5 mg INHALATION Q2H PRN PRN PRN Reason: Shortness of Breath/Wheezing Amlodipine Besylate (Norvasc) 10 mg PO DAILY [facility] Last Admin: 06/12/19 09:38 Dose: 10 mg Documented by: Apixaban (Eliquis) 2.5 mg PO BID [facility] Last Admin: 06/12/19 21:07 Dose: 2.5 mg Documented by: Aspirin (Ecotrin) 81 mg PO DAILY [facility] Last Admin: 06/12/19 09:38 Dose: 81 mg Documented by: Bumetanide (Bumex) 1 mg PO QODAY [facility] Last Admin: 06/12/19 09:38 Dose: 1 mg Documented by: Clonidine (Catapres) 0.1 mg PO TID [facility] Last Admin: 06/12/19 21:07 Dose: 0.1 mg Documented by: Dextrose (D50w Syringe) 0 gm IV X1 PRN; Protocol PRN Reason: Hypoglycemia Diltiazem HCl (Cardizem Cd) 120 mg PO DAILY [facility] Last Admin: 06/12/19 15:17 Dose: 120 mg Documented by: Diphenhydramine HCl (Benadryl) 25 mg PO QHS PRN PRN PRN Reason: insomnia Last Admin: 06/12/19 21:07 Dose: 25 mg Documented by: Diphenoxylate HCl/Atropine (Lomotil) 1 tablet PO Q8H PRN PRN PRN Reason: Diarrhea Famotidine (Pepcid) 20 mg PO DAILY [facility] Last Admin: 06/12/19 09:41 Dose: 20 mg Documented by: Glucagon () 1 mg IM .X1 PRN PRN Reason: Hypoglycemia Guaifenesin (Robitussin) 10 ml PO Q4H PRN PRN PRN Reason: COUGH Last Admin: 06/12/19 21:07 Dose: 10 ml Documented by: Hydralazine HCl (Apresoline) 50 mg PO TID [facility] Last Admin: 06/10/19 13:20 Dose: 50 mg Documented by: Ceftriaxone Sodium (Rocephin) 1 gm in 50 mls @ 100 mls/hr IV Q12 [facility] Last Infusion: 06/12/19 21:39 Dose: Infused Documented by: Azithromycin 500 mg/ Dextrose 255 mls @ 250 mls/hr IV Q24 [facility] Last Infusion: 06/12/19 14:42 Dose: Infused Documented by: Isosorbide Mononitrate (Imdur) 60 mg PO DAILY [facility] Last Admin: 06/12/19 09:42 Dose: 60 mg Documented by: Losartan Potassium (Cozaar) 50 mg PO DAILY [facility] Last Admin: 06/12/19 09:39 Dose: 50 mg Documented by: Magnesium Oxide (Mag-Ox 400) 400 mg PO DAILY [facility] Last Admin: 06/12/19 09:41 Dose: 400 mg Documented by: Prednisone () 5 mg PO DAILYCM [facility] Last Admin: 06/12/19 09:38 Dose: 5 mg Documented by: Prochlorperazine Edisylate (Compazine Iv) 5 mg IV Q6H PRN PRN PRN Reason: NAUSEA/VOMITING Last Admin: 06/12/19 00:04 Dose: 5 mg Documented by: Promethazine HCl (Phenergan Tablet) 12.5 mg PO DAILY [facility] Last Admin: 06/12/19 09:40 Dose: 12.5 mg Documented by: Sevelamer Carbonate (Renvela) 800 mg PO DAILY [facility] Last Admin: 06/12/19 09:40 Dose: 800 mg Documented by: Sodium Chloride () 5 - 15 ml IV UD PRN PRN Reason: SALINE FLUSH Last Admin: 06/12/19 21:07 Dose: 15 ml Documented by: Medical Necessity - Tobacco Use Smoking Status: Former smoker Assessment/Plan All Active Problems (Last Reviewed 05/19/19 @ 16:37 by Mae Ordonez) Respiratory failure (Resolved 07/18/18) ESRD (end stage renal disease) (Acute) Nausea & vomiting (Acute) Diverticulitis (Acute) 79 y/o admitted with a complaint of sudden onset of shortness of breath 1. Nonstemi * troponin was 0.152->0.239->0.219 * EKG initially showed lateral T wave inversions, and later resolved with subsequent EKG * cardiology on board- to decide about need for further workup * does have a history of CAD with placement of bare metal stent in [facility] * admit to PCU with telemetry * SL nitroglycerin prn; PO aspirin 81mg daily * on eliquis * * 2. Afib with RVR * HR went up to 150s, when she started vomiting * 2D echo; normal LV size, with concentric LV hypertrophy and Ef of 50-55%; stage 2 diastolic dysfunction and no regional wall motion abnormalities noted. LA moderately enlarged, unable to estimate RVSP; moderate sized pleural effusion * cardiology on board * To put patient on cardizem CD 120mg daily'; stop PO cardizem 60mg q6. * 3. acute exacerbation of HFpEF * resolved with dialysis. Now stable on room air. 2L of fluid removed via dialysis * * 4. Hyperkalemia: resolved with dialysis 5. ESRD: on HD MWF. Nephrology on board. On sevelamer 6. Hypertension: * Fairly controlled. On amlodipine, hydralazine and telmisartan. * 6. CAD s/p stent * She had bare-metal stent placement on 07/26/2013 in [facility]. also had anterolateral papillary muscle catheter ablation by Dr Centeno in October 2018 in [facility] * Echo as under 2. 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
[2019-06-13 00:25] VITALS: BP 153/66; PULSE 71; RESP 16; TEMP 36.6; O2SAT 98
[2019-06-13 02:44] VITALS: PULSE 72
--- NOTE | 2019-06-13 02:49 | CPS ---
patient refused pap therapy. patient advised of pap therapy benefits but still refused therapy.
[2019-06-13] MEDS: cloNIDine HCl 0.1 MG Tablet PO (06:13)
[2019-06-13 06:14] VITALS: BP 145/68; PULSE 76; RESP 18; TEMP 36.6; O2SAT 98
[2019-06-13 07:06] VITALS: PULSE 69
[2019-06-13 08:00] VITALS: O2SAT 96
[2019-06-13] MEDS: predniSONE 5 MG Tablet PO (08:04)
[2019-06-13 09:35] VITALS: BP 128/55; PULSE 69; RESP 16; TEMP 36.7; O2SAT 96
[2019-06-13] MEDS: Ceftriaxone 1 GM/50 ML BAG IV (09:37)
[2019-06-13] MEDS: proMETHazine 25 MG Tablet 12.5 MG PO (09:39)
[2019-06-13] MEDS: Losartan Potassium 50 MG Tablet PO (09:39)
[2019-06-13] MEDS: amLODIPine 10 MG Tablet PO (09:40)
[2019-06-13] MEDS: APIXABAN 2.5 MG TABLET PO (09:40)
[2019-06-13] MEDS: Aspirin E.C. 81 MG Tablet PO (09:40)
[2019-06-13] MEDS: Magnesium Oxide 400 MG Tablet PO (09:40)
[2019-06-13] MEDS: SEVELAMER CARBONATE 800 MG TABLET PO (09:41)
[2019-06-13] MEDS: dilTIAZem CD 120 MG Capsule PO (09:43)
[2019-06-13] MEDS: Isosorbide Mononitrate 60 MG Tablet PO (10:29)
[2019-06-14 14:27] LABS: Hepatitis B Surface Antigen Non-Reactive (Nonreactive)
--- NOTE | 2019-06-14 14:50 | CASEMGMT ---
Case Management DC F/u Call: DC Date: 06/12/19 DC Diagnosis: Afib with RVR, nonstemi, Acute exacerbation of HFpEF, community acquired pneumonia DC Disposition: Home Lace/Strata: 12/11 Called patient home number listed on demographics. No answer and no Voice Msg system set up. Ozzy West RNCM
== END 2019-06-13 11:00 | disposition home or self-care (01) | DRG 280 ==
LOC: ED 09:23 → PCU 10:41
PROVIDERS: Internal Medicine Nephrology; Admitting Provider Student in an Organized Health Care Education/Training Program; Emergency Provider Emergency Medicine; Family Provider Family Medicine; PCP Family Medicine; Referring Provider Student in an Organized Health Care Education/Training Program; Visit Provider Student in an Organized Health Care Education/Training Program
DX: I21.4 Non-ST elevation (NSTEMI) myocardial infarction (principal); J96.01 Acute respiratory failure with hypoxia; I50.33 Acute on chronic diastolic (congestive) heart failure; I13.2 Hypertensive heart and chronic kidney disease with heart failure and with stage 5 chronic kidney disease, or end stage renal disease; N18.6 End stage renal disease; J18.9 Pneumonia, unspecified organism; N25.81 Secondary hyperparathyroidism of renal origin; E44.0 Moderate protein-calorie malnutrition; Z68.1 Body mass index [BMI] 19.9 or less, adult; I48.0 Paroxysmal atrial fibrillation; E11.22 Type 2 diabetes mellitus with diabetic chronic kidney disease; D63.1 Anemia in chronic kidney disease; I25.10 Atherosclerotic heart disease of native coronary artery without angina pectoris; M35.00 Sjogren syndrome, unspecified; J84.10 Pulmonary fibrosis, unspecified; R79.1 Abnormal coagulation profile; E87.5 Hyperkalemia; E78.5 Hyperlipidemia, unspecified; R11.2 Nausea with vomiting, unspecified; I36.1 Nonrheumatic tricuspid (valve) insufficiency; K21.9 Gastro-esophageal reflux disease without esophagitis; Z99.2 Dependence on renal dialysis; Z79.01 Long term (current) use of anticoagulants; Z79.82 Long term (current) use of aspirin; Z79.52 Long term (current) use of systemic steroids; Z79.899 Other long term (current) drug therapy; I25.2 Old myocardial infarction; Z87.891 Personal history of nicotine dependence; Z95.5 Presence of coronary angioplasty implant and graft; Z90.710 Acquired absence of both cervix and uterus; Z90.49 Acquired absence of other specified parts of digestive tract
CPT/HCPCS: 36415; 71045; 80048; 82962; 83605; 83880; 84484; 85025; 87040; 87340; 87633; 90937; 93005; 93306; 94002; 97110; 97161; 97166; 97530; 97802; 99251; 99285; J7030; A4216; G0257; G0463; J1940; J2405

== ENCOUNTER → 2020-01-03 15:53 | Outpatient (CLI) | payer MEDICARE, OTHER, SELFPAY ==
[2019-06-10 11:06] VITALS: BMI 16.7
--- NOTE | 2020-01-03 15:58 | RAD_ITS ---
STUDY: X-RAY - LUMBAR SPINE REASON FOR EXAM: Female, 79 years old. FALL 5 WEEKS AGO. PAIN IN LOWER BACK. HX OF BACK SURGERY TECHNIQUE: 4 view(s) of the lumbar spine were obtained. COMPARISON: None FINDINGS: Normal lumbar lordosis. There is mild lumbar levoscoliosis with rotatory component. There is a grade 1 anterolisthesis of L4 relative to L5. There are posterior spinal fusion changes with rods and interpeduncular screws from L3 to L5. There is diffuse endplate spondylosis of the lumbar spine. There is multilevel disc space narrowing. There are calcified plaques of the abdominal aorta and common iliac arteries. RAD/L/S Spine Min 4 Views IMPRESSION: Postsurgical and degenerative changes as detailed above. There is no evidence of acute fracture. Electronically Signed: Trey Hendricks MD at 19:08 EDT , Service support ,
== END ==
PROVIDERS: PCP Family Medicine; Referring Provider Anesthesiology Pain Medicine; Visit Provider Anesthesiology Pain Medicine
DX: M54.5 Low back pain (principal); W19.XXXA Unspecified fall, initial encounter; Y93.9 Activity, unspecified; Y92.9 Unspecified place or not applicable; Y99.9 Unspecified external cause status
CPT/HCPCS: 72110

== ENCOUNTER → 2020-03-17 12:32 | Outpatient (CLI) | payer MEDICARE, BC, SELFPAY ==
[2020-02-04 13:22] VITALS: BMI 18.3
--- NOTE | 2020-03-17 12:38 | MRI_ITS ---
STUDY: MRI LUMBAR SPINE WITHOUT CONTRAST REASON FOR EXAM: Female, 79 years old. Fall 3 months ago, bilateral lower leg radiating pain, left leg giving out TECHNIQUE: Standardized fat and water weighted pulse sequences were obtained in the sagittal and axial planes. COMPARISON: January 08, 2019, January 03, 2020 plain films FINDINGS: There is levoscoliosis of the lumbar spine with grade 2 anterolisthesis of L4 on L5, approximately 12 mm. There is multilevel subchondral chronic marrow involution/degeneration. There is multilevel disc degeneration with left L3-L4 sagittal disc extrusion. There is L4-L5 disc device. There is L4-L5 pedicular screw fusion limited visualization of hardware due to intrinsic limitations of MR technique. This is better depicted on prior CT. Conus medullaris terminates at T12-L1. Cauda equina is normal. Thecal sac is patent at all levels with decompressive left L3 and L4 and L5 laminotomies. There are multilevel various degree foraminal stenoses, worse at L3-L4 on the right and L4-L5 on the left. Kidneys are severely atrophic and cystically replaced. Appearance is stable since prior CT. MRI/Spine Lumbar (Routine) IMPRESSION: 1. Scoliosis, degenerative malalignment and multilevel spondylosis. 2. L4-L5 disc and pedicular hardware fixation. 3. Patent thecal sac. Electronically Signed: Kevin Sweeney, at 14:48 EDT Tel , Service support ,
== END ==
PROVIDERS: PCP Family Medicine; Referring Provider Anesthesiology; Visit Provider Anesthesiology
DX: M54.16 Radiculopathy, lumbar region (principal)
CPT/HCPCS: 72148

== ENCOUNTER 2020-04-14 16:08 | Inpatient (IN) | payer MEDICARE, BC, OTHER, SELFPAY ==
[2020-02-04 13:22] VITALS: BMI 18.3
[2020-04-14] VITALS (8 sets, daily range): BP systolic 144–209; BP diastolic 57–88; PULSE 68–84; RESP 15–20; TEMP 36.4–37.1; O2SAT 94–99; BMI 19.1; BMI 19.0
--- NOTE | 2020-04-14 16:14 | EKG12_ITS ---
Test Reason : WEAKNESS Blood Pressure : / mmHG Vent. Rate : 077 BPM Atrial Rate : 077 BPM P-R Int : 204 ms QRS Dur : 104 ms QT Int : 370 ms P-R-T Axes : 025 -24 -25 degrees QTc Int : 418 ms Normal sinus rhythm Moderate voltage criteria for LVH, may be normal variant Cannot rule out Septal infarct , age undetermined Abnormal ECG Confirmed by RICKIE CAT ([id number]), city editor AMANDA REID ([id number]) on 04/17/2020 2:03:48 PM Referred By: Vinita Rodriguez Confirmed By:RICKIE CAT
--- NOTE | 2020-04-14 16:16 | RAD_ITS ---
STUDY: X-RAY - PELVIS AND LEFT HIP REASON FOR EXAM: Female, 79 years old. weakness, fall, left hip pain TECHNIQUE: 3 views of the pelvis and hip. COMPARISON: None. FINDINGS: There is a non-specific bowel gas pattern. There are atherosclerotic vascular calcifications of the pelvic arteries. There is diffuse demineralization of the osseous structures. No definite displaced fracture. However because of severe demineralization and degenerative changes, nondisplaced fracture cannot be excluded. Suggest CT scan. No dislocations. RAD/HIP, UNI W/ Pelvis 2-3 Views IMPRESSION: No evidence for displaced fractures. However nondisplaced fracture not excluded. CT scan recommended. Electronically Signed: Gerry Brice MD at 17:47 EDT , Service support ,
--- NOTE | 2020-04-14 16:16 | ED.DCSUM_ITS ---
History of Present Illness Chief Complaint: Weakness Informant: Patient, [employer] Narrative: Patient presents the emergency department with generalized weakness and inability to get up out of the chair. Patient is a dialysis client and went there yesterday where she participated in her full session of treatment. She states when she went to bed last night she felt her normal self but fatigued from her treatment. When she got up this morning she tried to walk but could not it she states her legs kept giving out. She states her whole body was shaking and weak. At one point while using her walker she sustained a fall injuring the left hip. She states her called the neighbor to help get her up and she has been in a chair since. Because he could not get her up to come to the hospital they called the ambulance. She denies striking her head. She states this has not happened to her before. She has chronic pain in the legs that is not diagnosed but she is on [place] from pain management. She states that this is different as she just feels globally weak. No vomiting or d iarrhea. No chest pain shortness of breath. Past Medical History - Allergies and Home Meds Allergies/Adverse Reactions: Allergies hydrocodone Allergy (Verified 04/14/20 16:20) deathly ill sulfamethoxazole [From Bactrim] Allergy (Verified 04/14/20 16:20) Swelling trimethoprim [From Bactrim] Allergy (Verified 04/14/20 16:20) Swelling Sulfa (Sulfonamide Antibiotics) Adverse Reaction (Verified 04/14/20 16:20) Angioedema Primary Care Physician: Omar Short MD [Primary Care Provider] - Surgical History: cholecystectomy, hysterectomy, - Smoking Status: Former smoker - Family History Maternal Family History: Family History (Last Reviewed 02/04/20 @ 14:04 by NICK MarshC) Mother CVA (cerebral vascular accident) Father CAD (coronary artery disease) Brother CAD (coronary artery disease) Myocardial infarction Brother CVA (cerebral vascular accident) Family History: Reports: No pertinent history Review of Systems General: Reports: Malaise. Denies: Chills, Fever, Sweats Eyes: Denies: Visual changes - bilaterally, Diplopia ENT: Denies: Rhinorrhea, Sore throat Cardiovascular: Denies: Chest pain, Palpitations Respiratory: Denies: Dyspnea, Cough, Dyspnea on exertion Gastrointestinal: Denies: Abdominal pain, Nausea, Vomiting, Diarrhea, Melena, Hematochezia Genitourinary: Reports: Frequency. Denies: Dysuria, Hematuria Musculoskeletal: Reports: Extremity Pain. Denies: Back pain Skin: Denies: Rash, Wounds Neurological: Denies: Headache, Weakness, Numbness Physical Exam Vital Signs/Narrative: Vital Signs Temp Pulse Resp BP 04/14/20 16:09 98.8 F 82 20 H 195/88 H Inital Vital Signs reviewed: Yes General: Well developed, Cachectic, No Acute Distress Head: Normocephalic, Atraumatic Eyes: Perrl, EOMI ENT: Moist mucous membranes, No rhinorrhea Neck: Supple, Nontender Cardiovascular: Regular rate, Regular rhythm, No murmurs Respiratory: No distress, CTA bilaterally, Chest nontender Abdomen: Soft, Nontender, Nondistended, Normal bowel sounds Back: Nontender, Normal Inspection Extremities: No edema, Tenderness - Tender to palpation left hip negative logroll, - - Left arm fistula Skin: Normal color, No rash Neurological: Alert, Oriented x3, Cranial nerves II-XII grossly intact, Normal Strength, Normal Sensation Diagnostic/Tx/Re-eval Clinical Impression(s) from Imaging Studies Hip/Pelvis X-Ray 04/14/20 16:16 IMPRESSION: No evidence for displaced fractures. However nondisplaced fracture not excluded. CT scan recommended. Electronically Signed: Gerry Brice MD at 17:47 EDT , Service support , Chest X-Ray 04/14/20 17:15 IMPRESSION: COPD with fibrosis. No gross acute infiltrates. Prominent right hilum, suggest CT with contrast. Electronically Signed: Gerry Brice MD at 17:54 EDT , Service support , Chest CT 04/14/20 18:16 IMPRESSION: COPD with extensive fibrosis and scarring. Atypical inflammatory infiltrates not excluded but less likely. Electronically Signed: Gerry Brice MD at 19:11 EDT , Service support , Lower Extremity CT 04/14/20 18:16 IMPRESSION: No evidence for fracture or dislocation. Degenerative changes. Electronically Signed: Gerry Brice MD at 18:47 EDT , Service support , Laboratory Last Values WBC 10.3 K/mm3 (4.4-11.0) 04/14/20 16:30 RBC 3.34 M/mm3 (4.2-5.4) L 04/14/20 16:30 Hgb 11.5 g/dL (12.0-15.0) L 04/14/20 16:30 Hct 37.2 % (37-47) 04/14/20 16:30 MCV 111.4 fL (81-99) H 04/14/20 16:30 MCH 34.4 pg (27.0-32.0) H 04/14/20 16:30 MCHC 30.9 g/dL (32-36) L 04/14/20 16:30 RDW Std Deviation 58.7 fl (35.1-43.9) H 04/14/20 16:30 RDW Coeff of Allison 14.5 % (11.6-14.6) 04/14/20 16:30 Plt Count 226 K/mm3 (150-450) 04/14/20 16:30 MPV 9.4 fl (6.2-12.0) 04/14/20 16:30 Immature Gran % (Auto) 0.600 % (0.0-0.9) 04/14/20 16:30 Neut % (Auto) 79.4 % (47-70) H 04/14/20 16:30 Lymph % (Auto) 10.3 % (19-41) L 04/14/20 16:30 Harmon % (Auto) 8.4 % (0-10) 04/14/20 16:30 Eos % (Auto) 1.0 % (0-5) 04/14/20 16:30 Baso % (Auto) 0.3 % (0-1) 04/14/20 16:30 Absolute Neuts (auto) 8.2 X10^3/uL (2.0-7.7) H 04/14/20 16:30 Absolute Lymphs (auto) 1.06 X10^3/uL (0.83-4.51) 04/14/20 16:30 Nucleated RBC % 0 % (0-5) 04/14/20 16:30 Sodium 138 mmol/L (136-145) 04/14/20 16:30 Potassium 5.5 mmol/L (3.5-5.1) H 04/14/20 16:30 Chloride 102 mmol/L (98-107) 04/14/20 16:30 Carbon Dioxide 31.0 mmol/L (21.0-32.0) 04/14/20 16:30 Anion Gap 5 (5-15) 04/14/20 16:30 BUN 36 mg/dL (7-18) H 04/14/20 16:30 Creatinine 4.63 mg/dL (0.55-1.02) H 04/14/20 16:30 Estim Creat Clear Calc 8.35 ml/min 04/14/20 16:30 Est GFR (MDRD) Af Amer 12 mL/min (>60) L 04/14/20 16:30 Est GFR (MDRD) Non-Af 10 mL/min (>60) L 04/14/20 16:30 BUN/Creatinine Ratio 7.8 RATIO (10-20) L 04/14/20 16:30 Glucose 98 mg/dL (74-106) 04/14/20 16:30 Calcium 8.8 mg/dL (8.5-10.1) 04/14/20 16:30 Phosphorus 4.0 mg/dL (2.5-4.9) 04/14/20 16:30 Magnesium 2.3 mg/dL (1.6-2.6) 04/14/20 16:30 Total Bilirubin 0.50 mg/dL (0.20-1.00) 04/14/20 16:30 AST 22 U/L (15-37) 04/14/20 16:30 ALT 11 U/L (13-56) L 04/14/20 16:30 Alkaline Phosphatase 78 U/L (45-117) 04/14/20 16:30 Troponin I 0.035 ng/mL (<0.045) 04/14/20 16:30 Total Protein 6.0 g/dL (6.4-8.2) L 04/14/20 16:30 Albumin 2.4 g/dL (3.2-5.0) L 04/14/20 16:30 Globulin 3.6 g/dL (2.2-4.2) 04/14/20 16:30 Albumin/Globulin Ratio 0.7 RATIO (0.9-2.4) L 04/14/20 16:30 Urine Color Yellow (Yellow) 04/14/20 16:54 Urine Clarity Clear (Clear) 04/14/20 16:54 Urine pH 8.0 (5.0 - 8.0) 04/14/20 16:54 Ur Specific [place] 1.010 (1.002-1.030) 04/14/20 16:54 Urine Protein 100 mg/dl (Negative) H 04/14/20 16:54 Urine Glucose (UA) 100 mg/dl (Normal) H 04/14/20 16:54 Urine Ketones Negative mg/dl (Negative) 04/14/20 16:54 Urine Occult Blood Negative /ul (Negative) 04/14/20 16:54 Urine Nitrite Negative (Negative) 04/14/20 16:54 Urine Bilirubin Negative mg/dL (Negative) 04/14/20 16:54 Urine Urobilinogen Normal mg/dl (Normal) 04/14/20 16:54 Ur Leukocyte Esterase Negative /ul (Negative) 04/14/20 16:54 Urine RBC 0-5 SEEN /hpf (0-5) 04/14/20 16:54 Urine WBC 0-5 SEEN /hpf (0-5) 04/14/20 16:54 Ur Squamous Epith Cells 0-5 SEEN /hpf (5-10) 04/14/20 16:54 Urine Bacteria 0 SEEN /hpf (None Seen) 04/14/20 16:54 Urine Mucus 0 SEEN /hpf (<or=2+) 04/14/20 16:54 - EKG Initial EKG Interpretation: Sinus Rhythm - EKG demonstrates a normal sinus rhythm at a rate of 77 without concerning features of ACS or ectopy - Medical Decision Making No specific cause for the patient's global weakness was found. notes that she is not eating very well. As she cannot ambulate we will plan an observational stay. ED Disposition - Plan for ED Patient: Diagnosis: Weakness, Protein calorie malnutrition, Contusion of left hip, ESRD (end stage renal disease), Hemodialysis patient Referrals: Omar Short MD [Primary Care Provider] -
[2020-04-14 16:47] LABS: Absolute Lymphocyte Count 1.06 X10^3/uL (0.83-4.51); Absolute Neutrophil Count 8.2 X10^3/uL (2.0-7.7); Basophil# 0.03 X10^3/uL; Basophil% 0.3 % (0-1); Hematocrit 37.2 % (37-47); Hemoglobin 11.5 g/dL (12.0-15.0); Lymphocyte # 1.06 X10^3/ul (4.0); Lymphocyte % 10.3 % (19-41); Mean Corp Hgb Conc 30.9 g/dL (32-36); Mean Corpuscular Hgb 34.4 pg (27.0-32.0); Mean Corpuscular Volume 111.4 fL (81-99); Mean Platelet Vol. 9.4 fl (6.2-12.0); Monocyte# 0.86 X10^3/uL; Monocyte% 8.4 % (0-10); NRBC Flagged by Analyzer 0 % (0-5); Neutrophil # 8.18 X10^3/uL (2.7-7.7); Neutrophil % 79.4 % (47-70); Platelet Count 226 K/mm3 (150-450); RBC Distribution Width CV 14.5 % (11.6-14.6); RBC Distribution Width SD 58.7 fl (35.1-43.9); Red Blood Count 3.34 M/mm3 (4.2-5.4); White Blood Count 10.3 K/mm3 (4.4-11.0)
[2020-04-14 16:58] LABS: Bacteria 0 SEEN /hpf (None Seen); Mucous, Urine 0 SEEN /hpf (<or=2+)
[2020-04-14 17:03] LABS: Color, Urine Yellow (Yellow); Glucose, Dipstick 100 mg/dl (Normal); Ketone-Dipstick Negative (Negative); Leukocyte Esterase-Dipstick Negative /ul (Negative); Nitrite-Dipstick Negative (Negative); Occult Blood-Urine Negative /ul (Negative); Protein-Dipstick 100 mg/dl (Negative); Urine Bilirubin Dipstick Negative (Negative); Urine Clarity Clear (Clear); Urine Urobilinogen Normal (Normal)
[2020-04-14 17:08] LABS: ALB/GLOB Ratio 0.7 RATIO (0.9-2.4); AST(SGOT) 22 U/L (15-37); Alanine Aminotransfer ALT/SGPT 11 U/L (13-56); Albumin, Serum 2.4 g/dL (3.2-5.0); Alkaline Phosphatase 78 U/L (45-117); Anion Gap 5 (5-15); BUN 36 mg/dL (7-18); BUN/Creat Ratio 7.8 RATIO (10-20); Calcium,Total 8.8 mg/dL (8.5-10.1); Chloride 102 mmol/L (98-107); Creatinine, Serum 4.63 mg/dL (0.55-1.02); EST Glomerular Filtration Rate 10 mL/min (>60); Est Glom Filt Rate - Afr Amer 12 mL/min (>60); Estimated Creatinine Clearance 8.35 ml/min; Globulin 3.6 g/dL (2.2-4.2); Glucose 98 mg/dL (74-106); Magnesium 2.3 mg/dL (1.6-2.6); Potassium 5.5 mmol/L (3.5-5.1); Sodium Level 138 mmol/L (136-145)
--- NOTE | 2020-04-14 17:15 | RAD_ITS ---
STUDY: X-RAY CHEST REASON FOR EXAM: Female, 79 years old. weakness, fall today TECHNIQUE: Frontal and lateral views of the chest. COMPARISON: 06/12/2019. FINDINGS: The lungs are hyperexpanded. There are coarsened interstitial markings suggestive of moderate chronic fibrosis. No gross focal infiltrates. No gross effusions. There is borderline cardiomegaly. Prominence of the right hilum. Possibly related to prominent pulmonary arteries. However suggest further evaluation with contrast CT. Normal mediastinum. Normal visualized pulmonary arteries. Normal visualized aortic arch and descending thoracic aorta. There are diffuse degenerative changes of the visualized thoracic spine. Normal visualized ribs, clavicles, and shoulders. There is no demonstrated abnormality of the visualized soft tissue structures of the upper abdomen. RAD/Chest PA and Lateral IMPRESSION: COPD with fibrosis. No gross acute infiltrates. Prominent right hilum, suggest CT with contrast. Electronically Signed: Gerry Brice MD at 17:54 EDT , Service support ,
[2020-04-14 17:44] LABS: Red Blood Cells-Urine 0-5 SEEN /hpf (0-5); Squamous Epithelial Cells - UA 0-5 SEEN /hpf (5-10); White Blood Cells 0-5 SEEN /hpf (0-5)
--- NOTE | 2020-04-14 18:16 | CT_ITS ---
Exam: CT of the left hip. HISTORY: Left hip pain. Indeterminate radiographs. COMPARISON: Radiographs of the same date. Individualized dose optimization techniques were used for this CT.. FINDINGS: There is demineralization. There is moderate osteoarthritis including joint space narrowing and osteophytes. No fractures or dislocations are seen. Grossly normal visualized iliac wing and pubic bones. No gross acute abnormality of the visualized soft tissues. Heavily calcified arteries. CT/Extremity Lower without Contra IMPRESSION: No evidence for fracture or dislocation. Degenerative changes. Electronically Signed: Gerry Brice MD at 18:47 EDT , Service support ,
--- NOTE | 2020-04-14 18:16 | CT_ITS ---
STUDY: CT CHEST WITHOUT CONTRAST REASON FOR EXAM: Female, 79 years old. ABNORMAL CHEST X-RAY. Weakness. Prior back surgery. HTN RADIATION DOSAGE (If Supplied By Facility): CTDIvol = ( 7.83 ) mGy, DLP = ( 274.05 ) mGycm TECHNIQUE: Transaxial imaging was performed without the administration of intravenous contrast material. Individualized dose optimization techniques were used for this CT. COMPARISON: Chest x-ray of the same day. FINDINGS: Hyperexpansion of the lungs. Widespread, scattered areas of interstitial prominence most just above the fibrosis. Atypical inflammatory processes cannot be excluded. Chronic fibrosis/honeycombing, in both lung bases. No effusions are seen. There is mild cardiac enlargement. There are calcifications of the coronary arteries. Normal mediastinum. Normal hilar regions. There is prominence of the pulmonary hilar arteries without peripheral pulmonary vascular congestion, suggesting pulmonary hypertension. There is atherosclerotic calcification of the aortic arch with tortuosity and elongation of the aortic arch and descending thoracic aorta. There are multi-level degenerative changes of the thoracic spine. Limited views through the upper abdomen show numerous bilateral renal cysts. CT/Chest without Contrast IMPRESSION: COPD with extensive fibrosis and scarring. Atypical inflammatory infiltrates not excluded but less likely. Electronically Signed: Gerry Brice MD at 19:11 EDT , Service support ,
--- NOTE | 2020-04-14 19:36 | HP.PCM_ITS ---
Problem List (1) Adult failure to thrive Status: Acute (2) Protein calorie malnutrition Status: Chronic Qualifiers: Protein-calorie malnutrition severity: severe Qualified Code(s): E43 - Unspecified severe protein-calorie malnutrition (3) History of non-ST elevation myocardial infarction (NSTEMI) Status: Chronic Comment: Related to respiratory failure: Echo showed EF 30% with multiple segment abnormalities (EF since then has improved to date). (4) Diabetes mellitus, type II Status: Chronic Qualifiers: Diabetes mellitus terminal superintendent insulin use: without terminal superintendent use Diabetes mellitus complication status: with other specified complication Qualified Code(s): E11.69 - Type 2 diabetes mellitus with other specified complication (5) Atherosclerotic heart disease of [place] coronary artery without angina pectoris Status: Chronic Qualifiers: [place] vs. transplanted heart: [place] heart Qualified Code(s): I25.10 - Atherosclerotic heart disease of [place] coronary artery without angina pectoris Comment: 30% narrowing at distal left main; 30-40% proximal lesion; 50% proximal lesion in mid diagonal; stent widely patent in CX with no in-stent restenosis. 20% narrowing in distal CX. 20% narrowing in proximal RCA. Right iliofemoral angiogram: High bifurcation of the SFA/profunda famoral arteries. Arteriotomy is in the SFA. Lines removed without closure devices. (6) Stented coronary artery Status: Chronic Comment: 2.5 X 24 mm bare metal Express2 stent per Dr. Ayla Mills @ [facility] (7) History of radiofrequency ablation (RFA) procedure for cardiac arrhythmia Status: Chronic Comment: For frequent symptomatic PVC's per Dr. Centeno, [facility] in [place], [place] (8) ESRD (end stage renal disease) Status: Chronic (9) Anemia of chronic kidney failure Status: Chronic Qualifiers: Chronic kidney disease stage: stage 5 Qualified Code(s): N18.5 - Chronic kidney disease, stage 5; D63.1 - Anemia in chronic kidney disease (10) Hypertension Status: Chronic Qualifiers: Hypertension type: essential hypertension Qualified Code(s): I10 - Essential (primary) hypertension (11) Hyperlipidemia Status: Chronic Qualifiers: Hyperlipidemia type: unspecified Qualified Code(s): E78.5 - Hyperlipidemia, unspecified (12) Pulmonary fibrosis Status: Chronic (13) Chronic steroid use Status: Chronic (14) Sjogrens syndrome Status: Chronic Qualifiers: Sjogren's organ involvement: unspecified organ involvement Qualified Code( s): M35.00 - Sicca syndrome, unspecified (15) GERD (gastroesophageal reflux disease) Status: Chronic Qualifiers: Esophagitis presence: esophagitis presence not specified Qualified Code(s): K21.9 - Gastro-esophageal reflux disease without esophagitis (16) Gout Status: Chronic Qualifiers: Gout site: unspecified site Gout etiology: unspecified cause Chronicity: unspecified Qualified Code(s): M10.9 - Gout, unspecified History of Present Illness Date of Admission: 04/14/20 Chief Complaint: LE weakness, debility The patient is a 79 y/o F w/ PMHx: AOCD, ESRD on HD TThS regimen, Diabetes mellitus type II, HTN, HLD, CAD w/ Hx NSTEMI s/p PCI BMS placement, Chronic C OPD/Pulmonary fibrosis with chronic steroid usage, GERD, Gout, Sjogren's Syndrome, Hx Frequent PVC s/p RFA who presents to the [facility] ED on 04/14/20 with history of generalized weakness and debility, unable to even get up out of her chair with last dialysis the day prior with a full session feeling well the previous day however today notes that her legs keep giving out with severe fatigue and LE extremity discomfort prompting her to fall unfortunately while using her walker onto her left hip with no trauma to the head or LOC with no recent fever, chills, nausea, emesis, abdominal pain, diarrhea, chest pain, dyspnea or cough associated. notes that she more recently over the last several months following dialysis has severe debility and weakness with falls as well as significant poor appetite. Work-up in the ED included T 98.8, heart rate 82, BP initially 195/88, respiratory rate 20, 97% on room air, CBC with WC 10.3, hemoglobin 11.5, platelet 226 with left shift, CMP with potassium 5.5 however moderate hemolysis noted, BUN/creatinine 36/4.63, phosphorus 4.0, magnesium 2.3, troponin 0.035, urinalysis unremarkable, chest x-ray with chronic COPD changes with prominent right hilum, left hip and plain film of the pelvis with no evidence for displaced fractures, chest CT with chronic COPD and extensive fibrotic change and scarring, CT of the left hip with no evidence for fracture or dislocation with degenerative changes. Past Medical History Past Medical History (Chronic Problems): Chronic Problems (Last Reviewed 02/04/20 @ 14:04 by SHIRA Marsh) Protein calorie malnutrition (Chronic) History of non-ST elevation myocardial infarction (NSTEMI) (Chronic 07/18/18) Related to respiratory failure: Echo showed EF 30% with multiple segment abnormalities (EF since then has improved to date). Diabetes mellitus, type II (Chronic) Atherosclerotic heart disease of [place] coronary artery without angina pectoris (Chronic) 30% narrowing at distal left main; 30-40% proximal lesion; 50% proximal lesion in mid diagonal; stent widely patent in CX with no in-stent restenosis. 20% narrowing in distal CX. 20% narrowing in proximal RCA. Right iliofemoral angiogram: High bifurcation of the SFA/profunda famoral arteries. Arteriotomy is in the SFA. Lines removed without closure devices. Stented coronary artery (Chronic 07/26/13) 2.5 X 24 mm bare metal Express2 stent per Dr. Ayla Mills @ [facility] History of left heart catheterization (Chronic 07/13/14) Cath done @ [facility] for eval for renal transplant: 30% narrowing at distal left main; 30-40% proximal lesion; 50% proximal lesion in mid diagonal; stent widely patent in CX with no in-stent restenosis. 20% narrowing in distal CX. 20% narrowing in proximal RCA. Right iliofemoral angiogram: High bifurcation of the SFA/profunda famoral arteries. Arteriotomy is in the SFA. Lines removed without closure devices. Previous cath done 07/21/13 at same facility done for abnormal stress: Left main 20-30%. FFR of LAD, 40% proximal lesion.Diagonal 1 75% proximal occlusion, small vessel; not clinically relevant. 75% proximal CX lesion (see stent on problem list); RCA no obstructive disease. History of radiofrequency ablation (RFA) procedure for cardiac arrhythmia (Chronic 10/29/18) For frequent symptomatic PVC's per Dr. Centeno, [facility] in [place], [place] Paroxysmal atrial fibrillation (Chronic) Atrial dilatation, bilateral (Chronic) Moderate per echo 10/29/2018 Concentric left ventricular hypertrophy (Chronic) Mild per echo 10/29/18, EF 55-60%. [facility] Pericardial effusion (Chronic) Minimal per echo 10/29/2018, [place], [place] Nonrheumatic tricuspid (valve) insufficiency (Chronic) Mild, RVSP 36.6 Per echo 10/29/18 done @ [place], [place] Nonrheumatic mitral valve regurgitation (Chronic) Mild to Moderate per echo 10/29/18, [facility] in [place] Hemodialysis patient (Chronic) Meme York, Ernesto ESRD (end stage renal disease) (Chronic) AV fistula (Chronic) left forearm Anemia of chronic kidney failure (Chronic) Hypertension (Chronic) Hyperlipidemia (Chronic) Pulmonary fibrosis (Chronic) Chronic steroid use (Chronic) Sjogrens syndrome (Chronic) GERD (gastroesophageal reflux disease) (Chronic) Hyperuricemia (Chronic) Diarrhea (Chronic) History of total abdominal hysterectomy (Chronic) History of umbilical hernia repair (Chronic ~2013) History of cholecystectomy (Chronic) History of thumb surgery (Chronic ~2009) right thumb History of esophagogastroduodenoscopy (EGD) (Chronic) History of colonoscopy (Chronic 09/01/13) History of cervical spinal surgery (Chronic) Gout (Chronic) Medical History: Medical History (Last Reviewed 02/04/20 @ 14:04 by Rahul Delgado NP-C) History of non-ST elevation myocardial infarction (NSTEMI) (Chronic) Onset Date: 07/18/18 I25.2 Related to respiratory failure: Echo showed EF 30% with multiple segment abnormalities (EF since then has improved to date). Respiratory failure (Resolved) Onset Date: 07/18/18 J96.90 Admitted to PCU @ [facility]: placed on bipap for hypoxemic/hypercapneic respiratory failure requiring bipap. Possible aspiration pneumonia. Pulmonary fibrosis, Sjogren's. Diabetes mellitus, type II (Chronic) E11.9 Atherosclerotic heart disease of [place] coronary artery without angina pectoris (Chronic) I25.10 30% narrowing at distal left main; 30-40% proximal lesion; 50% proximal lesion in mid diagonal; stent widely patent in CX with no in-stent rest enosis. 20% narrowing in distal CX. 20% narrowing in proximal RCA. Right iliofemoral angiogram: High bifurcation of the SFA/profunda famoral arteries. Arteriotomy is in the SFA. Lines removed without closure devices. Paroxysmal atrial fibrillation (Chronic) I48.0 Atrial dilatation, bilateral (Chronic) I51.7 Moderate per echo 10/29/2018 Concentric left ventricular hypertrophy (Chronic) I51.7 Mild per echo 10/29/18, EF 55-60%. [facility] Pericardial effusion (Chronic) I31.3 Minimal per echo 10/29/2018, [place], [place] Nonrheumatic tricuspid (valve) insufficiency (Chronic) I36.1 Mild, RVSP 36.6 Per echo 10/29/18 done @ [place], [place] Nonrheumatic mitral valve regurgitation (Chronic) I34.0 Mild to Moderate per echo 10/29/18, [facility] in [place] Hemodialysis patient (Chronic) Z99.2 Tues, Thurs, Sat ESRD (end stage renal disease) (Acute) N18.6 Anemia of chronic kidney failure (Chronic) N18.9, D63.1 Hypertension (Chronic) I10 Hyperlipidemia (Chronic) E78.5 Pulmonary fibrosis (Chronic) J84.10 Chronic steroid use (Chronic) Sjogrens syndrome (Chronic) M35.00 GERD (gastroesophageal reflux disease) (Chronic) K21.9 Gout (Chronic) M10.9 Allergies hydrocodone Allergy (Verified 04/14/20 16:20) deathly ill sulfamethoxazole [From Bactrim] Allergy (Verified 04/14/20 16:20) Swelling trimethoprim [From Bactrim] Allergy (Verified 04/14/20 16:20) Swelling Sulfa (Sulfonamide Antibiotics) Adverse Reaction (Verified 04/14/20 16:20) Angioedema Home Medications: Ambulatory Orders Medication Instructions Recorded hydrALAZINE [Apresoline] 50 mg PO TID 02/16/18 acetaminophen 500 mg tablet 1,000 mg PO DAILY PRN PRN tab 03/05/19 amlodipine 10 mg tablet 10 mg PO DAILY 03/05/19 aspirin 81 mg tablet,delayed 81 mg PO DAILY 03/05/19 release sevelamer carbonate 800 mg tablet 800 mg PO DAILY tab 03/05/19 clonidine HCl 0.1 mg tablet 0.1 mg PO TID tab 03/23/19 prednisone 5 mg tablet 5 mg PO DAILY 05/25/19 Nitroglycerin 0.4 mg SL PRN PRN 06/10/19 gabapentin 100 mg capsule 100 mg PO TID 02/04/20 isosorbide mononitrate 60 mg 30 mg PO TID tab 02/04/20 tablet,extended release 24 hr telmisartan 40 mg tablet 40 mg PO DAILY #90 tab 02/04/20 Bumetanide 1 mg PO QODAY 04/14/20 Diltiazem CD [Cardizem CD] 120 mg PO DAILY 04/14/20 Famotidine/Ca Carb/Mag Hydrox 1 ea PO DAILY 04/14/20 [Pepcid Complete Tablet Chew] Surgical History: Surgical History (Last Reviewed 02/04/20 @ 14:04 by SHIRA Marsh) Stented coronary artery (Chronic) Onset Date: 07/26/13 Z95.5 2.5 X 24 mm bare metal Express2 stent per Dr. Ayla Mills @ [facility] History of left heart catheterization (Chronic) Onset Date: 07/13/14 Z98.890 Cath done @ [facility] for eval for renal transplant: 30% narrowing at distal left main; 30-40% proximal lesion; 50% proximal lesion in mid diagonal; stent widely patent in CX with no in-stent restenosis. 20% narrowing in distal CX. 20% narrowing in proximal RCA. Right iliofemoral angiogram: High bifurcation of the SFA/profunda famoral arteries. Arteriotomy is in the SFA. Lines removed without closure devices. Previous cath done 07/21/13 at same facility done for abnormal stress: Left main 20-30%. FFR of LAD, 40% proximal lesion.Diagonal 1 75% proximal occlusion, small vessel; not clinically relevant. 75% proximal CX lesion (see stent on problem list); RCA no obstructive disease. History of radiofrequency ablation (RFA) procedure for cardiac arrhythmia (Chronic) Onset Date: 10/29/18 Z98.890 For frequent symptomatic PVC's per Dr. Centeno, [facility] in [place], [place] Surgical History: cholecystectomy, hysterectomy, - - Cholecystectomy, left aVF, lumbar and neck surgery, hysterectomy, RFA, PCI with bare-metal stenting. 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 Tobacco Use: Non-smoker Alcohol: None Drugs: None - *Family History Maternal Family History: Family History (Last Reviewed 02/04/20 @ 14:04 by SHIRA Marsh) Mother CVA (cerebral vascular accident) Father CAD (coronary artery disease) Brother CAD (coronary artery disease) Myocardial infarction Brother CVA (cerebral vascular accident) History Items: Stroke Paternal Family History: Family History (Last Reviewed 02/04/20 @ 14:04 by SHIRA Marsh) Mother CVA (cerebral vascular accident) Father CAD (coronary artery disease) Brother CAD (coronary artery disease) Myocardial infarction Brother CVA (cerebral vascular accident) History Items: Heart Disease Review of Systems Constitutional: Reports: Anorexia, Malaise, Weakness, Weight Change - Progressive weight loss., Fatigue. Denies: Chills, Fever HEENT: Denies: Head Aches, Sinus Congestion, Sinus Drainage Cardiovascular: Denies: Chest Pain, Palpitations Respiratory: Denies: Cough, Shortness of breath at rest, Sputum production Gastrointestinal: Denies: Abdominal Pain, Nausea, Vomiting Genitourinary: Denies: Dysuria Musculoskeletal: Reports: Back Pain, Joint Pain. Denies: Joint Tenderness Skin: Reports: Skin Changes. Denies: Rash, Wounds Neurological: Reports: - - Noted body shakes with exertion attempts this AM.. Denies: Focal weakness, Numbness, Tingling Psychiatric: Reports: Anxiety, Depression. Denies: Homicidal Ideations, Suicidal Ideations Hematologic/ Lymphatic: Reports: Anemia, Easy Bruising, Easy Bleeding VTE Information - Inpt Only VTE Present on Admission: No VTE Mechan Device Prophylaxis: SCD's VTE Pharm Prophylaxis ordered?: Yes Patient Problems: Active and Suspected Problems (Last Reviewed 02/04/20 @ 14:04 by SHIRA Marsh) Weakness (Acute) Contusion of left hip (Acute) Adult failure to thrive (Acute) Subjective: Patient seated upright in ED bed, fatigued appearing, anxious, tearful when she realized she would have to stay. Objective: Physical Examination: General: awake, alert, oriented x 3 and cooperative, seated upright in the ED bed, anxious, tearful when she relies she would have to stay. Skin: normal color, turgor, no icterus, cyanosis except significant lower extremity stasis disease, occasional abrasion. HEENT: AT/NC, EOMI, PERRLA, mildly dry MM, no carotid bruits or JVD noted. Lungs: CTA bilaterally, moderate effort, moderate decrease BL bases, no rales, ronchi or wheezing. Heart: Regular rate and rhythm; no gallop, rub audible. Abdomen: soft, cachectic habitus, NTTP, ND, normal BS, no HSM. Extremities: no cyanosis, clubbing, or edema,+ LUE AVF, significantly evident muscle loss. Neurological: patient awake, alert, oriented x 3; cognitive function intact; pupils equally reactive to light and accomodation; cranial nerves II-XII grossly normal, moving all 4 extremities, no focal deficits, strength severely global decreased. Psychiatric: affect appears anxious, tearful, suspect underlying anxiety and depression. - Physical Exam Vitals/I&O's: Vital Signs Temp Pulse Resp BP Pulse Ox 97.6 F L 84 19 H 209/84 H 94 04/14/20 19:18 04/14/20 19:34 04/14/20 19:34 04/14/20 19:34 04/14/20 19:34 Oxygen Delivery Method Room Air Weight: 118 lb 6.212 oz Body Mass Index (BMI) 19.1 Laboratory Results 04/14/20 16:30: WBC 10.3, RBC 3.34 L, Hgb 11.5 L, Hct 37.2, MCV 111.4 H, MCH 34.4 H, MCHC 30.9 L, RDW Std Deviation 58.7 H, RDW Coeff of Allison 14.5, Plt Count 226, MPV 9.4, Immature Gran % (Auto) 0.600, Neut % (Auto) 79.4 H, Lymph % (Auto) 10.3 L, Sutton % (Auto) 8.4, Eos % (Auto) 1.0, Baso % (Auto) 0.3, Absolute Neuts (auto) 8.2 H, Absolute Lymphs (auto) 1.06, Nucleated RBC % 0 04/14/20 16:30: Sodium 138, Potassium 5.5 H, Chloride 102, Carbon Dioxide 31.0, Anion Gap 5, BUN 36 H, Creatinine 4.63 H, Estim Creat Clear Calc 8.35, Est GFR (MDRD) Af Amer 12 L, Est GFR (MDRD) Non-Af 10 L, BUN/Creatinine Ratio 7.8 L, Glucose 98, Calcium 8.8, Magnesium 2.3, Total Bilirubin 0.50, AST 22, ALT 11 L, Alkaline Phosphatase 78, Troponin I 0.035, Total Protein 6.0 L, Albumin 2.4 L, Globulin 3.6, Albumin/Globulin Ratio 0.7 L 04/14/20 16:30: Phosphorus 4.0 04/14/20 16:54: Urine Color Yellow, Urine Clarity Clear, Urine pH 8.0, Ur Specific [place]ill[place] 1.010, Urine Protein 100 H, Urine Glucose (UA) 100 H, Urine Ketones Negative, Urine Occult Blood Negative, Urine Nitrite Negative, Urine Bilirubin Negative, Urine Urobilinogen Normal, Ur Leukocyte Esterase Negative, Urine RBC 0-5 SEEN, Urine WBC 0-5 SEEN, Ur Squamous Epith Cells 0-5 SEEN, Urine Bacteria 0 SEEN, Urine Mucus 0 SEEN Assessment/Plan All Active Problems (Last Reviewed 02/04/20 @ 14:04 by Rahul Delgado NP-C) Weakness (Acute) Contusion of left hip (Acute) Adult failure to thrive (Acute) Respiratory failure (Resolved 07/18/18) Nausea & vomiting (Acute) Diverticulitis (Acute) The patient is a 79 y/o F w/ PMHx: AOCD, ESRD on HD TThS regimen, Diabetes mellitus type II, HTN, HLD, CAD w/ Hx NSTEMI s/p PCI BMS placement, Chronic COPD/Pulmonary fibrosis with chronic steroid usage, GERD, Gout, Sjogren's Syndrome, Hx Frequent PVC s/p RFA who presents to the [facility] ED on 04/14/20 with history of generalized weakness and debility, unable to even get up out of her chair with last dialysis the day prior with a full session feeling well the previous day however today notes that her legs keep giving out with severe fatigue and LE extremity discomfort prompting her to fall unfortunately while using her walker onto her left hip. 1. Debility, Weakness, Failure to Thrive Adult with Frequent Falls, L Hip contusion: Given her debility, inability to care for self with generalized weakness, possibly related with recent HD session, will admit to [facility], do suspect some component of underlying depression therefore may need to consider addition of agent possibly has a pain to encourage appetite concurrently, maintain on fal l precautions, consult PT/OT/CM for discharge planning, PRN oral and IV pain regimen, likely would benefit from SNF versus rehab therapies, nutrition consultation for evidence of malnutrition which per report has been an ongoing issue. 2. Chronic Pain Syndrome: Patient following Dr. Maldonado and has had injections into her back with prior history of lumbar neck surgery, currently on Erath which has been working as well as gabapentin, will continue these in addition to breakthrough regimen. 3. CAD: Status post bare-metal stent placement with history of an STEMI previously, unclear location, continue aspirin, not on statin therapy, telmisartan, not on beta-ronnie therapy as on Cardizem. 4. Chronic COPD/pulmonary fibrosis: Per current list not on any inhaler regimen, will have PRN albuterol, encourage head of bed, I-S. 5. Sjogren's Disease: Unclear specific involvement, maintained on chronic steroid regimen, likely contributes to weakness, will maintain on fall precautions as noted, therapies as noted. 6. ESRD: HD ongoing Friday, , Friday, following with Dr. Woods, continue nephrology consultation, continue patient sevelamer regimen. 7. Hx Frequent PVC: s/p RFA secondary to frequent symptomatic PVCs, noted to have been performed at [facility]. 8. Diabetes mellitus type II: Noted history, not on regimen per review of current list, hemoglobin A1c requested and if appropriate will transition to regular diet especially given malnutrition evident, in the interim we will maintain on ADA diet, accu checks w/ ISS, continue chronic gabapentin regimen. 9. Hypertension: Continue home regimen including amlodipine, bumetanide, clonidine, Cardizem, hydralazine, telmisartan, clarifying if isosorbide ongoing with hold parameters, PRN hydralazine. 10. Hyperlipidemia: Not on statin therapy, defer to outpatient. 11. AOCD: Admission hemoglobin 11.5, baseline appears 9-10, stable, trend. 12. Severe Protein Calorie Malnutrition: Evidenced per reduced BMI, evidence muscle and fat loss, nutrition consulted. 13. DVT prophylaxis: SCDs, heparin. 14. CODE status: Patient KENA is her who is present and living will is currently in place. Discussed CODE status at length including difference between FULL code, DNR-CCA and DNR-CC status. Following discussions about the differences in these status, requested full CODE STATUS despite significant comorbidities which was discussed frankly as likely aggressive intervention or attempts would not yield a good outcome and patient notes understanding. Advanced Care Planning Face to Face Time: 16 minutes. OBSV E&M: 49757 Initial observation care L3 Procedures: 58803 Advncd Care Plan 30 Min
[2020-04-14] MEDS: hydrALAZINE 50 MG Tablet PO (20:53)
[2020-04-14] MEDS: cloNIDine HCl 0.1 MG Tablet PO (20:53)
[2020-04-14] MEDS: 0.9% Normal Saline 1,000 ML 100 ML IV (21:03)
[2020-04-14] MEDS: Heparin Injection (Vial) 5,000 UNIT/ML VIAL 5000 UNIT SC (21:03)
[2020-04-14] MEDS: HYDROcodone Bitartrate/Apap 5/325 Tablet PO (21:27)
[2020-04-14] MEDS: Gabapentin 100 MG Capsule 200 MG PO (22:06)
[2020-04-15] VITALS (13 sets, daily range): BP systolic 149–202; BP diastolic 66–89; PULSE 61–85; RESP 16–18; TEMP 36.5–38.4; O2SAT 94–98; BMI 18.9
[2020-04-15] MEDS: cloNIDine HCl 0.1 MG Tablet PO ×3 (05:49→21:01)
[2020-04-15] MEDS: hydrALAZINE 50 MG Tablet PO ×3 (05:49→21:02)
[2020-04-15] MEDS: HYDROcodone Bitartrate/Apap 5/325 Tablet PO ×2 (05:49→20:58)
[2020-04-15 07:00] LABS: Bedside Glucose 77 mg/dL (70-110)
[2020-04-15 07:04] LABS: Absolute Lymphocyte Count 1.12 X10^3/uL (0.83-4.51); Absolute Neutrophil Count 4.8 X10^3/uL (2.0-7.7); Basophil# 0.02 X10^3/uL; Basophil% 0.3 % (0-1); Eosinophil# 0.18 X10^3/uL; Eosinophils% 2.7 % (0-5); Hematocrit 36.2 % (37-47); Hemoglobin 11.3 g/dL (12.0-15.0); Lymphocyte # 1.12 X10^3/ul (4.0); Lymphocyte % 16.5 % (19-41); Mean Corp Hgb Conc 31.2 g/dL (32-36); Mean Corpuscular Hgb 34.9 pg (27.0-32.0); Mean Corpuscular Volume 111.7 fL (81-99); Monocyte# 0.61 X10^3/uL; NRBC Flagged by Analyzer 0 % (0-5); Neutrophil % 70.8 % (47-70); Platelet Count 189 K/mm3 (150-450); RBC Distribution Width SD 57.2 fl (35.1-43.9); Red Blood Count 3.24 M/mm3 (4.2-5.4); White Blood Count 6.8 K/mm3 (4.4-11.0)
[2020-04-15 07:30] LABS: ALB/GLOB Ratio 0.5 RATIO (0.9-2.4); AST(SGOT) 12 U/L (15-37); Alanine Aminotransfer ALT/SGPT 10 U/L (13-56); Albumin, Serum 1.9 g/dL (3.2-5.0); Alkaline Phosphatase 69 U/L (45-117); Anion Gap 7 (5-15); BUN 44 mg/dL (7-18); BUN/Creat Ratio 8.8 RATIO (10-20); Calcium,Total 7.9 mg/dL (8.5-10.1); Chloride 102 mmol/L (98-107); Creatinine, Serum 4.99 mg/dL (0.55-1.02); EST Glomerular Filtration Rate 9 mL/min (>60); Est Glom Filt Rate - Afr Amer 11 mL/min (>60); Estimated Creatinine Clearance 8.05 ml/min; Globulin 3.5 g/dL (2.2-4.2); Glucose 77 mg/dL (74-106); Potassium 4.7 mmol/L (3.5-5.1); Protein, Total 5.4 g/dL (6.4-8.2); Sodium Level 137 mmol/L (136-145)
[2020-04-15 08:04] LABS: Hemoglobin A1c 4.7 % (3.8-5.6)
[2020-04-15] MEDS: Menthol/Lanolin/Calamine/Znox 113 GM Tube 1 APPLIC TOPICAL ×4 (09:40→21:00)
[2020-04-15] MEDS: Gabapentin 100 MG Capsule 200 MG PO ×3 (09:41→21:01)
[2020-04-15] MEDS: Heparin Injection (Vial) 5,000 UNIT/ML VIAL 5000 UNIT SC ×2 (09:41→21:03)
[2020-04-15] MEDS: hydrALAZINE 20 MG/ML Vial 10 MG IV (09:46)
[2020-04-15] MEDS: 0.9% Saline Lock 10 ML Syringe IV (09:52)
--- NOTE | 2020-04-15 12:09 | PN_ITS ---
Patient Problems: Active and Suspected Problems (Last Reviewed 02/04/20 @ 14:04 by Rahul Delgado NP-C) Weakness (Acute) Contusion of left hip (Acute) Adult failure to thrive (Acute) Vitals/I&O's: Vital Signs Temp Pulse Resp BP Pulse Ox 98.3 F 71 18 172/75 H 98 04/15/20 09:30 04/15/20 09:46 04/15/20 09:30 04/15/20 09:30 04/15/20 09:30 Oxygen Delivery Method Room Air Weight: 123 lb 0.287 oz Body Mass Index (BMI) 18.9 Intake and Output for Last 24 Hours 04/13/20 04/14/20 04/15/20 23:59 23:59 23:59 Intake Total 1455 / 1455 Balance 1455 / 1455 Laboratory Results 04/14/20 16:30: WBC 10.3, RBC 3.34 L, Hgb 11.5 L, Hct 37.2, MCV 111.4 H, MCH 34.4 H, MCHC 30.9 L, RDW Std Deviation 58.7 H, RDW Coeff of Allison 14.5, Plt Count 226, MPV 9.4, Immature Gran % (Auto) 0.600, Neut % (Auto) 79.4 H, Lymph % (Auto) 10.3 L, Hall % (Auto) 8.4, Eos % (Auto) 1.0, Baso % (Auto) 0.3, Absolute Neuts (auto) 8.2 H, Absolute Lymphs (auto) 1.06, Nucleated RBC % 0 04/14/20 16:30: Sodium 138, Potassium 5.5 H, Chloride 102, Carbon Dioxide 31.0, Anion Gap 5, BUN 36 H, Creatinine 4.63 H, Estim Creat Clear Calc 8.35, Est GFR (MDRD) Af Amer 12 L, Est GFR (MDRD) Non-Af 10 L, BUN/Creatinine Ratio 7.8 L, Glucose 98, Calcium 8.8, Magnesium 2.3, Total Bilirubin 0.50, AST 22, ALT 11 L, Alkaline Phosphatase 78, Troponin I 0.035, Total Protein 6.0 L, Albumin 2.4 L, Globulin 3.6, Albumin/Globulin Ratio 0.7 L 04/14/20 16:30: Phosphorus 4.0 04/14/20 16:54: Urine Color Yellow, Urine Clarity Clear, Urine pH 8.0, Ur Specific [place] 1.010, Urine Protein 100 H, Urine Glucose (UA) 100 H, Urine Ketones Negative, Urine Occult Blood Negative, Urine Nitrite Negative, Urine Bilirubin Negative, Urine Urobilinogen Normal, Ur Leukocyte Esterase Negative, Urine RBC 0-5 SEEN, Urine WBC 0-5 SEEN, Ur Squamous Epith Cells 0-5 SEEN, Urine Bacteria 0 SEEN, Urine Mucus 0 SEEN 04/15/20 06:12: WBC 6.8, RBC 3.24 L, Hgb 11.3 L, Hct 36.2 L, MCV 111.7 H, MCH 34.9 H, MCHC 31.2 L, RDW Std Deviation 57.2 H, RDW Coeff of Allison 14.0, Plt Count 189, MPV 9.0, Immature Gran % (Auto) 0.700, Neut % (Auto) 70.8 H, Lymph % (Auto) 16.5 L, Hall % (Auto) 9.0, Eos % (Auto) 2.7, Baso % (Auto) 0.3, Absolute Neuts (auto) 4.8, Absolute Lymphs (auto) 1.12, Nucleated RBC % 0 04/15/20 06:12: Sodium 137, Potassium 4.7, Chloride 102, Carbon Dioxide 28.0, Anion Gap 7, BUN 44 H, Creatinine 4.99 H, Estim Creat Clear Calc 8.05, Est GFR (MDRD) Af Amer 11 L, Est GFR (MDRD) Non-Af 9 L, BUN/Creatinine Ratio 8.8 L, Glucose 77, Calcium 7.9 L, Total Bilirubin 0.30, AST 12 L, ALT 10 L, Alkaline Phosphatase 69, Total Protein 5.4 L, Albumin 1.9 L, Globulin 3.5, Albumin/Globulin Ratio 0.5 L 04/15/20 06:12: Hemoglobin A1c 4.7 04/15/20 06:54: POC Glucose 77 Current Medications Acetaminophen (Tylenol) 650 mg PO Q6H PRN PRN PRN Reason: Pain Score 1-10/Temp > 100.7 F Hydrocodone Bitart/Acetaminophen ([place] 5mg-325mg) 1 - 2 tablet PO Q4H PRN PRN PRN Reason: Pain Score 4-10/10 Last Admin: 04/15/20 05:49 Dose: 1 tablet Documented by: Al Hydroxide/Mg Hydroxide (Mylanta Ii) 30 ml PO Q6H PRN PRN PRN Reason: Gastric Burning Albuterol Sulfate (Ventolin Aerosols) 2.5 mg INHALATION Q2H PRN PRN PRN Reason: Dyspnea, wheezing Amlodipine Besylate (Norvasc) 10 mg PO DAILY [facility]) [facility] Bumetanide (Bumex) 1 mg PO QODAY [facility] Calamine/Phenol (Calmoseptine Ointment) 1 applic TOPICAL 4X/DAY [facility]; Protocol Last Admin: 04/15/20 09:40 Dose: 1 applicatio Documented by: Clonidine (Catapres) 0.1 mg PO TID [facility] Last Admin: 04/15/20 05:49 Dose: 0.1 mg Documented by: Diltiazem HCl (Cardizem Cd) 120 mg PO DAILY [facility] Famotidine (Pepcid) 20 mg PO DAILY [facility] Fentanyl Citrate (Sublimaze (100mcg Ampule)) 25 mcg IV Q4H PRN PRN PRN Reason: severe pain 6-10/10 Gabapentin (Neurontin) 200 mg PO TIDCM [facility] Last Admin: 04/15/20 09:41 Dose: 100 mg Documented by: Guaifenesin (Robitussin) 20 ml PO Q4H PRN PRN PRN Reason: COUGH Heparin Sodium (Porcine) (Heparin Na) 5,000 unit SC Q12 [facility] Last Admin: 04/15/20 09:41 Dose: 5,000 unit Documented by: Hydralazine HCl (Apresoline) 50 mg PO TID [facility] Last Admin: 04/15/20 05:49 Dose: 50 mg Documented by: Hydralazine HCl (Apresoline Iv) 10 mg IV Q4H PRN PRN PRN Reason: SBP > 160 Last Admin: 04/15/20 09:46 Dose: 10 mg Documented by: Losartan Potassium (Cozaar) 50 mg PO DAILY [facility] Magnesium Hydroxide (Milk Of Magnesia) 30 ml PO DAILY PRN PRN PRN Reason: Constipation Melatonin (Melatonin) 3 mg PO QHS PRN PRN PRN Reason: INSOMNIA Nutritional Formula (Lactose Free) (Glucerna Shake) 120 ml PO 4X/DAY [facility] Last Admin: 04/15/20 11:45 Dose: Not Given Documented by: Ondansetron HCl (Zofran) 4 mg IV Q8H PRN PRN PRN Reason: NAUSEA/VOMITING Prednisone () 5 mg PO DAILYCM [facility] Prochlorperazine Edisylate (Compazine Iv) 5 mg IV Q4H PRN PRN PRN Reason: Breakthrough nausea/vomiting Psyllium Hydrophilic Mucilloid (Metamucil) 1 packet PO DAILY PRN PRN PRN Reason: Constipation Senna/Docusate Sodium (Senokot-S, Sneha-Colace) 2 tablet PO BID PRN PRN PRN Reason: Constipation Sevelamer Carbonate (Renvela) 800 mg PO DAILY [facility] Sodium Chloride () 10 - 40 ml IV UD PRN PRN Reason: SALINE FLUSH Last Admin: 04/15/20 09:52 Dose: 10 ml Documented by: Throat Lozenges (Cepacol Sore Throat Lozenge) 1 lozenge MUCOUS MEM Q2H PRN PRN PRN Reason: SORE THROAT STROKE Vital Signs/Narrative: Vital Signs Temp Pulse Resp BP Pulse Ox 04/15/20 09:46 71 04/15/20 09:30 98.3 F 71 18 172/75 H 98 Medical Necessity - Tobacco Use Smoking Status: Former smoker Tobacco Use: Non-smoker Assessment/Plan All Active Problems (Last Reviewed 02/04/20 @ 14:04 by Rahul Delgado [employer]-C) Weakness (Acute) Contusion of left hip (Acute) Adult failure to thrive (Acute) Respiratory failure (Resolved 07/18/18) Nausea & vomiting (Acute) Diverticulitis (Acute)
--- NOTE | 2020-04-15 12:12 | PN_ITS ---
Patient Problems: Active and Suspected Problems (Last Reviewed 02/04/20 @ 14:04 by Rahul Delgado, AIR QUALITY ENGINEER-C) Weakness (Acute) Contusion of left hip (Acute) Adult failure to thrive (Acute) Subjective: Patient seen and examined. She complained of feeling weak today and said yesterday she was just not able to get up. Patient was very tearful and states she wants to be as independent as possible because her is also old and cannot take care of her solely on his own no matter how much he tries. She denies any nausea or vomiting, fever or chills, chest pain, abdominal pain, diarrhea vomiting. Review of symptoms otherwise negative. Vitals are stable apart from blood pressure which is elevated at 172/75. Vitals/I&O's: Vital Signs Temp Pulse Resp BP Pulse Ox 98.3 F 71 18 172/75 H 98 04/15/20 09:30 04/15/20 09:46 04/15/20 09:30 04/15/20 09:30 04/15/20 09:30 Oxygen Delivery Method Room Air Weight: 123 lb 0.287 oz Body Mass Index (BMI) 18.9 Intake and Output for Last 24 Hours 04/13/20 04/14/20 04/15/20 23:59 23:59 23:59 Intake Total 1455 / 1455 Balance 1455 / 1455 General: Alert, Oriented x3, Cooperative, - - distressed, tearful HEENT: Atraumatic, PERRLA, EOMI, Normocephalic Oral: Dry Mucosa Neck: Supple, No JVD, Negative Carotid Bruits Lungs: Clear to auscultation, Normal air movement, No rhonchi, No wheeze Cardiovascular: Regular rate, No murmurs Abdomen: Bowel Sounds Present, Soft, Non Tender Extremities: No clubbing, No cyanosis, No edema, Capillary Refill Less than 3 Seconds, - - AV fistula in left wrist. Skin: No rashes, No breakdown Musculoskeletal: No Tenderness to Palpation of Joints or Extremities Lymphatic: No Cervical, Supraclavicular, or Inguinal Adenopathy Neurological: Cranial nerves II-XII grossly intact, Neuro grossly intact, Motor Exam 5/5 strength throughout Psych/Mental Status: - - tearful Laboratory Results 04/14/20 16:30: WBC 10.3, RBC 3.34 L, Hgb 11.5 L, Hct 37.2, MCV 111.4 H, MCH 34.4 H, MCHC 30.9 L, RDW Std Deviation 58.7 H, RDW Coeff of Allison 14.5, Plt Count 226, MPV 9.4, Immature Gran % (Auto) 0.600, Neut % (Auto) 79.4 H, Lymph % (Auto) 10.3 L, [place] % (Auto) 8.4, Eos % (Auto) 1.0, Baso % (Auto) 0.3, Absolute Neuts (auto) 8.2 H, Absolute Lymphs (auto) 1.06, Nucleated RBC % 0 04/14/20 16:30: Sodium 138, Potassium 5.5 H, Chloride 102, Carbon Dioxide 31.0, Anion Gap 5, BUN 36 H, Creatinine 4.63 H, Estim Creat Clear Calc 8.35, Est GFR (MDRD) Af Amer 12 L, Est GFR (MDRD) Non-Af 10 L, BUN/Creatinine Ratio 7.8 L, Glucose 98, Calcium 8.8, Magnesium 2.3, Total Bilirubin 0.50, AST 22, ALT 11 L, Alkaline Phosphatase 78, Troponin I 0.035, Total Protein 6.0 L, Albumin 2.4 L, Globulin 3.6, Albumin/Globulin Ratio 0.7 L 04/14/20 16:30: Phosphorus 4.0 04/14/20 16:54: Urine Color Yellow, Urine Clarity Clear, Urine pH 8.0, Ur Specific [place] 1.010, Urine Protein 100 H, Urine Glucose (UA) 100 H, Urine Ketones Negative, Urine Occult Blood Negative, Urine Nitrite Negative, Urine Bilirubin Negative, Urine Urobilinogen Normal, Ur Leukocyte Esterase Negative, Urine RBC 0-5 SEEN, Urine WBC 0-5 SEEN, Ur Squamous Epith Cells 0-5 SEEN, Urine Bacteria 0 SEEN, Urine Mucus 0 SEEN 04/15/20 06:12: WBC 6.8, RBC 3.24 L, Hgb 11.3 L, Hct 36.2 L, MCV 111.7 H, MCH 34.9 H, MCHC 31.2 L, RDW Std Deviation 57.2 H, RDW Coeff of Allison 14.0, Plt Count 189, MPV 9.0, Immature Gran % (Auto) 0.700, Neut % (Auto) 70.8 H, Lymph % (Auto) 16.5 L, [place] % (Auto) 9.0, Eos % (Auto) 2.7, Baso % (Auto) 0.3, Absolute Neuts (auto) 4.8, Absolute Lymphs (auto) 1.12, Nucleated RBC % 0 04/15/20 06:12: Sodium 137, Potassium 4.7, Chloride 102, Carbon Dioxide 28.0, Anion Gap 7, BUN 44 H, Creatinine 4.99 H, Estim Creat Clear Calc 8.05, Est GFR (MDRD) Af Amer 11 L, Est GFR (MDRD) Non-Af 9 L, BUN/Creatinine Ratio 8.8 L, Glucose 77, Calcium 7.9 L, Total Bilirubin 0.30, AST 12 L, ALT 10 L, Alkaline Phosphatase 69, Total Protein 5.4 L, Albumin 1.9 L, Globulin 3.5, Albumin/Globulin Ratio 0.5 L 04/15/20 06:12: Hemoglobin A1c 4.7 04/15/20 06:54: POC Glucose 77 Diagnostic Data Hip/Pelvis X-Ray 04/14/20 16:16 IMPRESSION: No evidence for displaced fractures. However nondisplaced fracture not excluded. CT scan recommended. Electronically Signed: Gerry Brice MD at 17:47 EDT , Service support , Chest X-Ray 04/14/20 17:15 IMPRESSION: COPD with fibrosis. No gross acute infiltrates. Prominent right hilum, suggest CT with contrast. Electronically Signed: Gerry Brice MD at 17:54 EDT , Service support , Chest CT 04/14/20 18:16 IMPRESSION: COPD with extensive fibrosis and scarring. Atypical inflammatory infiltrates not excluded but less likely. Electronically Signed: Gerry Brice MD at 19:11 EDT , Service support , Lower Extremity CT 04/14/20 18:16 IMPRESSION: No evidence for fracture or dislocation. Degenerative changes. Electronically Signed: Gerry Brice MD at 18:47 EDT , Service support , Current Medications Acetaminophen (Tylenol) 650 mg PO Q6H PRN PRN PRN Reason: Pain Score 1-10/Temp > 100.7 F Hydrocodone Bitart/Acetaminophen ([place] 5mg-325mg) 1 - 2 tablet PO Q4H PRN PRN PRN Reason: Pain Score 4-10/10 Last Admin: 04/15/20 05:49 Dose: 1 tablet Documented by: Al Hydroxide/Mg Hydroxide (Mylanta Ii) 30 ml PO Q6H PRN PRN PRN Reason: Gastric Burning Albuterol Sulfate (Ventolin Aerosols) 2.5 mg INHALATION Q2H PRN PRN PRN Reason: Dyspnea, wheezing Amlodipine Besylate (Norvasc) 10 mg PO DAILY [facility]irin ([facility]) [facility] Bumetanide (Bumex) 1 mg PO QODAY [facility] Calamine/Phenol (Calmoseptine Ointment) 1 applic TOPICAL 4X/DAY [facility]; Protocol Last Admin: 04/15/20 09:40 Dose: 1 applicatio Documented by: Clonidine (Catapres) 0.1 mg PO TID [facility] Last Admin: 04/15/20 05:49 Dose: 0.1 mg Documented by: Diltiazem HCl (Cardizem Cd) 120 mg PO DAILY [facility] Famotidine (Pepcid) 20 mg PO DAILY [facility] Fentanyl Citrate (Sublimaze (100mcg Ampule)) 25 mcg IV Q4H PRN PRN PRN Reason: severe pain 6-10/10 Gabapentin (Neurontin) 200 mg PO TIDCM [facility] Last Admin: 04/15/20 09:41 Dose: 100 mg Documented by: Guaifenesin (Robitussin) 20 ml PO Q4H PRN PRN PRN Reason: COUGH Heparin Sodium (Porcine) (Heparin Na) 5,000 unit SC Q12 [facility] Last Admin: 04/15/20 09:41 Dose: 5,000 unit Documented by: Hydralazine HCl (Apresoline) 50 mg PO TID [facility] Last Admin: 04/15/20 05:49 Dose: 50 mg Documented by: Hydralazine HCl (Apresoline Iv) 10 mg IV Q4H PRN PRN PRN Reason: SBP > 160 Last Admin: 04/15/20 09:46 Dose: 10 mg Documented by: Losartan Potassium (Cozaar) 50 mg PO DAILY [facility] Magnesium Hydroxide (Milk Of Magnesia) 30 ml PO DAILY PRN PRN PRN Reason: Constipation Melatonin (Melatonin) 3 mg PO QHS PRN PRN PRN Reason: INSOMNIA Nutritional Formula (Lactose Free) (Glucerna Shake) 120 ml PO 4X/DAY [facility] Last Admin: 04/15/20 11:45 Dose: Not Given Documented by: Ondansetron HCl (Zofran) 4 mg IV Q8H PRN PRN PRN Reason: NAUSEA/VOMITING Prednisone () 5 mg PO DAILYCM [facility] Prochlorperazine Edisylate (Compazine Iv) 5 mg IV Q4H PRN PRN PRN Reason: Breakthrough nausea/vomiting Psyllium Hydrophilic Mucilloid (Metamucil) 1 packet PO DAILY PRN PRN PRN Reason: Constipation Senna/Docusate Sodium (Senokot-S, Sneha-Colace) 2 tablet PO BID PRN PRN PRN Reason: Constipation Sevelamer Carbonate (Renvela) 800 mg PO DAILY [facility] Sodium Chloride () 10 - 40 ml IV UD PRN PRN Reason: SALINE FLUSH Last Admin: 04/15/20 09:52 Dose: 10 ml Documented by: Throat Lozenges (Cepacol Sore Throat Lozenge) 1 lozenge MUCOUS MEM Q2H PRN PRN PRN Reason: SORE THROAT STROKE Vital Signs/Narrative: Vital Signs Temp Pulse Resp BP Pulse Ox 04/15/20 09:46 71 04/15/20 09:30 98.3 F 71 18 172/75 H 98 Medical Necessity - Tobacco Use Smoking Status: Former smoker Tobacco Use: Non-smoker Assessment/Plan All Active Problems (Last Reviewed 02/04/20 @ 14:04 by Rahul Delgado [employer] QUAL[employer] ENGINEER-C) Weakness (Acute) Contusion of left hip (Acute) Adult failure to thrive (Acute) Respiratory failure (Resolved 07/18/18) Nausea & vomiting (Acute) Diverticulitis (Acute) 1. Debility due to frequent falls and failure to thrive * Patient was admitted with weakness and he still complains of feeling weak today. * PT OT on board. Fall precautions. * May need placement if she is agreeable. * 2. CAD status post bare-metal stent placement: On aspirin; not on statin or beta-ronnie. On Cardizem and telmisartan. 3. Hypertension: On amlodipine, clonidine, Cardizem, telmisartan, hydralazine and bumetanide. Blood pressure elevated today 170 systolic. IV hydralazine as needed. 4. Chronic pain syndrome: Follows Dr. Cancino. On [place] and gabapentin. 5. COPD and pulmonary fibrosis: On albuterol as needed. 6. Sjogren's disease: On chronic steroids. 7. ESRD on hemodialysis. On dialysis Tuesdays and Saturdays. Nephrology consulted. On sevelamer. 8. Anemia of chronic disease: Hemoglobin is 11.3. Stable. Will monitor. 9. H protein calorie malnutrition. BMI is 18.8. Nutrition consulted. DVT prophylaxis: Heparin OBSV E&M: 82750 Subsequent observation care L2
--- NOTE | 2020-04-15 12:24 | CASEMGMT ---
SW met w/pt and in room. Pt states is trying to sleep, gave permission to speak w/. SW spoke w/ about prior level of care, and plan from here. PCP: Dr. Short Specialists: Dr. Kaur, Dr. Nielson, goes to dialysis T, , SAT. drives her. Pharmacy: [facility] in [employer] Insurance/prescription coverage: Medicare[facility] [employer] LW/[facility]: As per have both but in [place] LNOK: , daughter Living arrangements: They live here for 6 months and in [place] for 6 months. explains it gets too cold for him here, he has asthma and COPD. explains that pt has been getting progressively weaker. DME: Pt has shower chair, lift chair, grab bars, walk in shower, rollator HHC/SNF: Pt has had home health, did not find it helpful as pt did not take what was learned and continue, when home health stopped she also stopped doing the exercises. Pt has not been to a half-way in the past. Plan: TBD. Pt's is having surgery for aortic stenosis on April 24 in [place]. Their daughter is coming up from [place] to take him to surgery, and will take pt to and from dialysis. states neighbors can take her after that while he is recovering, as he normally takes her. He states pt is getting weaker and weaker, and he cannot pick her up. He states she was very shaky the last few days. SW spoke w/ about palliative care, though he seems uninterested at this time, focusing more on pt's functional ability. SW gave list of nursing homes in the area, and asked him to review w/pt when she is awake. SW explained that TCU would not be an option, but if neighbors can take pt to and from dialysis, we may be able to work it out with any of the other facilities for her to be admitted. states understanding. At this time, noncommittal to any plan but is stating cannot care for pt at home if she is so weak. SW explained will have SW follow up on Friday. states understanding. SW will continue to follow. TERRY Metz
[2020-04-15] MEDS: dilTIAZem CD 120 MG Capsule PO (12:28)
[2020-04-15] MEDS: amLODIPine 10 MG Tablet PO (12:29)
[2020-04-15] MEDS: Losartan Potassium 50 MG Tablet PO (12:29)
--- NOTE | 2020-04-15 12:41 | CASEMGMT ---
aware LW/POA forms not on file, states they are in [place]. TERRY Metz
[2020-04-15] MEDS: Acetaminophen 325 MG Tablet 650 MG PO (14:45)
--- NOTE | 2020-04-15 16:27 | CON.PCM_ITS ---
Consultation - Renal PCP/ Referring MD: Requesting physician: [] Primary care physician: Dr. Omar Short MD - History of Present Illness History of Present Illness: The patient is a 79 year old F PMHof ESRD on TTS HD schedule. Pt presented with generalized weakness , poor appetite, recent fall with left hip trauma. CT hip is negative for fracture Renal team was consulted for ESRD care. Pt goes to [facility] HD center . ROS 12 systems review is negative except what mentioned in HPI[] - Allergies Allergies: Allergies hydrocodone Allergy (Verified 04/14/20 16:20) deathly ill sulfamethoxazole [From Bactrim] Allergy (Verified 04/14/20 16:20) Swelling trimethoprim [From Bactrim] Allergy (Verified 04/14/20 16:20) Swelling Sulfa (Sulfonamide Antibiotics) Adverse Reaction (Verified 04/14/20 16:20) Angioedema - Current Medications Current Medications: Current Medications Acetaminophen (Tylenol) 650 mg PO Q6H PRN PRN PRN Reason: Pain Score 1-10/Temp > 100.7 F Last Admin: 04/15/20 14:45 Dose: 650 mg Documented by: Hydrocodone Bitart/Acetaminophen ([place] 5mg-325mg) 1 - 2 tablet PO Q4H PRN PRN PRN Reason: Pain Score 4-10/10 Last Admin: 04/15/20 05:49 Dose: 1 tablet Documented by: Al Hydroxide/Mg Hydroxide (Mylanta Ii) 30 ml PO Q6H PRN PRN PRN Reason: Gastric Burning Albuterol Sulfate (Ventolin Aerosols) 2.5 mg INHALATION Q2H PRN PRN PRN Reason: Dyspnea, wheezing Amlodipine Besylate (Norvasc) 10 mg PO DAILY [facility] Last Admin: 04/15/20 12:29 Dose: 10 mg Documented by: Aspirin (Ecotrin) 81 mg PO DAILYCM [facility] Bumetanide (Bumex) 1 mg PO QODAY [facility] Calamine/Phenol (Calmoseptine Ointment) 1 applic TOPICAL 4X/DAY [facility]; Protocol Last Admin: 04/15/20 14:36 Dose: 1 applicatio Documented by: Clonidine (Catapres) 0.1 mg PO TID [facility] Last Admin: 04/15/20 14:37 Dose: 0.1 mg Documented by: Diltiazem HCl (Cardizem Cd) 120 mg PO DAILY [facility] Last Admin: 04/15/20 12:28 Dose: 120 mg Documented by: Famotidine (Pepcid) 20 mg PO DAILY [facility] Fentanyl Citrate (Sublimaze (100mcg Ampule)) 25 mcg IV Q4H PRN PRN PRN Reason: severe pain 6-10/10 Gabapentin (Neurontin) 200 mg PO QHS [facility] Gabapentin (Neurontin) 100 mg PO 0800,1400 [facility] Last Admin: 04/15/20 14:37 Dose: Not Given Documented by: Guaifenesin (Robitussin) 20 ml PO Q4H PRN PRN PRN Reason: COUGH Heparin Sodium (Porcine) (Heparin Na) 5,000 unit SC Q12 [facility] Last Admin: 04/15/20 09:41 Dose: 5,000 unit Documented by: Hydralazine HCl (Apresoline) 50 mg PO TID [facility] Last Admin: 04/15/20 14:36 Dose: 50 mg Documented by: Hydralazine HCl (Apresoline Iv) 10 mg IV Q4H PRN PRN PRN Reason: SBP > 160 Last Admin: 04/15/20 09:46 Dose: 10 mg Documented by: Losartan Potassium (Cozaar) 50 mg PO DAILY [facility] Last Admin: 04/15/20 12:29 Dose: 50 mg Documented by: Magnesium Hydroxide (Milk Of Magnesia) 30 ml PO DAILY PRN PRN PRN Reason: Constipation Melatonin (Melatonin) 3 mg PO QHS PRN PRN PRN Reason: INSOMNIA Nutritional Formula (Nepro Carb Steady) 120 ml PO 4X/DAY [facility] Ondansetron HCl (Zofran) 4 mg IV Q8H PRN PRN PRN Reason: NAUSEA/VOMITING [facility] () [facility] Prochlorperazine Edisylate (Compazine Iv) 5 mg IV Q4H PRN PRN PRN Reason: Breakthrough nausea/vomiting Psyllium Hydrophilic Mucilloid (Metamucil) 1 packet PO DAILY PRN PRN PRN Reason: Constipation Senna/Docusate Sodium (Senokot-S, Sneha-Colace) 2 tablet PO BID PRN PRN PRN Reason: Constipation Sevelamer Carbonate (Renvela) 800 mg PO DAILY [facility] Sodium Chloride () 10 - 40 ml IV UD PRN PRN Reason: SALINE FLUSH Last Admin: 04/15/20 09:52 Dose: 10 ml Documented by: Throat Lozenges (Cepacol Sore Throat Lozenge) 1 lozenge MUCOUS MEM Q2H PRN PRN PRN Reason: SORE THROAT - Past Medical History Past Medical History (Chronic Problems): Chronic Problems (Last Reviewed 02/04/20 @ 14:04 by NICK MarshC) Protein calorie malnutrition (Chronic) History of non-ST elevation myocardial infarction (NSTEMI) (Chronic 07/18/18) Related to respiratory failure: Echo showed EF 30% with multiple segment abnormalities (EF since then has improved to date). Diabetes mellitus, type II (Chronic) Atherosclerotic heart disease of [place] coronary artery without angina pectoris (Chronic) 30% narrowing at distal left main; 30-40% proximal lesion; 50% proximal lesion in mid diagonal; stent widely patent in CX with no in-stent restenosis. 20% narrowing in distal CX. 20% narrowing in proximal RCA. Right iliofemoral angiogram: High bifurcation of the SFA/profunda famoral arteries. Arteriotomy is in the SFA. Lines removed without closure devices. Stented coronary artery (Chronic 07/26/13) 2.5 X 24 mm bare metal Express2 stent per Dr. Ayla Mills @ [facility] History of left heart catheterization (Chronic 07/13/14) Cath done @ [facility] for eval for renal transplant: 30% narrowing at distal left main; 30-40% proximal lesion; 50% proximal lesion in mid diagonal; stent widely patent in CX with no in-stent restenosis. 20% narrowing in distal CX. 20% narrowing in proximal RCA. Right iliofemoral angiogram: High bifurcation of the SFA/profunda famoral arteries. Arteriotomy is in the SFA. Lines removed without closure devices. Previous cath done 07/21/13 at same facility done for abnormal stress: Left main 20-30%. FFR of LAD, 40% proximal lesion.Diagonal 1 75% proximal occlusion, small vessel; not clinically relevant. 75% proximal CX lesion (see stent on problem list); RCA no obstructive disease. History of radiofrequency ablation (RFA) procedure for cardiac arrhythmia ([facility] 10/29/18) For frequent symptomatic PVC's per Dr. Centeno, [facility] in [place], [place] Paroxysmal atrial fibrillation (Chronic) Atrial dilatation, bilateral (Chronic) Moderate per echo 10/29/2018 Concentric left ventricular hypertrophy (Chronic) Mild per echo 10/29/18, EF 55-60%. [facility] Pericardial effusion (Chronic) Minimal per echo 10/29/2018, [place], [place] Nonrheumatic tricuspid (valve) insufficiency (Chronic) Mild, RVSP 36.6 Per echo 10/29/18 done @ [place], [place] Nonrheumatic mitral valve regurgitation (Chronic) Mild to Moderate per echo 10/29/18, [facility] in [place] Hemodialysis patient (Chronic) Chela, Meme, Sat ESRD (end stage renal disease) (Chronic) AV fistula (Chronic) left forearm Anemia of chronic kidney failure (Chronic) Hypertension (Chronic) Hyperlipidemia (Chronic) Pulmonary fibrosis (Chronic) Chronic steroid use (Chronic) Sjogrens syndrome (Chronic) GERD (gastroesophageal reflux disease) (Chronic) Hyperuricemia (Chronic) Diarrhea (Chronic) History of total abdominal hysterectomy (Chronic) History of umbilical hernia repair (Chronic ~2013) History of cholecystectomy (Chronic) History of thumb surgery (Chronic ~2009) right thumb History of esophagogastroduodenoscopy (EGD) (Chronic) History of colonoscopy (Chronic 09/01/13) History of cervical spinal surgery (Chronic) Gout (Chronic) - Past Surgical History Surgical History: cholecystectomy, hysterectomy, - - Cholecystectomy, left aVF, lumbar and neck surgery, hysterectomy, RFA, PCI with bare-metal stenting. - Social History Smoking Status: Former smoker Alcohol: None Drugs: None - Family History Maternal Family History: Family History (Last Reviewed 02/04/20 @ 14:04 by SHIRA Marsh) Mother CVA (cerebral vascular accident) Father CAD (coronary artery disease) Brother CAD (coronary artery disease) Myocardial infarction Brother CVA (cerebral vascular accident) History Items: Stroke Paternal Family History: Family History (Last Reviewed 02/04/20 @ 14:04 by SHIRA Marsh) Mother CVA (cerebral vascular accident) Father CAD (coronary artery disease) Brother CAD (coronary artery disease) Myocardial infarction Brother CVA (cerebral vascular accident) History Items: Heart Disease Patient Problems: Active and Suspected Problems (Last Reviewed 02/04/20 @ 14:04 by SHIRA Marsh) Weakness (Acute) Contusion of left hip (Acute) Adult failure to thrive (Acute) - Physical Exam Vitals/I&O's: Vital Signs Temp Pulse Resp BP Pulse Ox 98.3 F 85 18 179/73 H 98 04/15/20 09:30 04/15/20 14:36 04/15/20 09:30 04/15/20 12:00 04/15/20 09:30 Oxygen Delivery Method Room Air Weight: 55.8 kg Body Mass Index (BMI) 18.9 Intake and Output for Last 24 Hours 04/13/20 04/14/20 04/15/20 23:59 23:59 23:59 Intake Total 2054 Balance 2054 General: Alert, Oriented x3 HEENT: Atraumatic Oral: Moist Mucosa Neck: Supple, No JVD Lungs: Clear to auscultation, Normal air movement, No rhonchi Cardiovascular: Regular rate, Regular Rhythm, Normal S1 Abdomen: Bowel Sounds Present, Soft, Non Tender, Non-Distended Extremities: No clubbing, No cyanosis, No edema Skin: No rashes Lymphatic: No Cervical, Supraclavicular, or Inguinal Adenopathy Neurological: Cranial nerves II-XII grossly intact, Neuro grossly intact Psych/Mental Status: Appropriate Laboratory Results 04/14/20 16:30: WBC 10.3, RBC 3.34 L, Hgb 11.5 L, Hct 37.2, MCV 111.4 H, MCH 34.4 H, MCHC 30.9 L, RDW Std Deviation 58.7 H, RDW Coeff of Allison 14.5, Plt Count 226, MPV 9.4, Immature Gran % (Auto) 0.600, Neut % (Auto) 79.4 H, Lymph % (Auto) 10.3 L, [place] % (Auto) 8.4, Eos % (Auto) 1.0, Baso % (Auto) 0.3, Absolute Neuts (auto) 8.2 H, Absolute Lymphs (auto) 1.06, Nucleated RBC % 0 04/14/20 16:30: Sodium 138, Potassium 5.5 H, Chloride 102, Carbon Dioxide 31.0, Anion Gap 5, BUN 36 H, Creatinine 4.63 H, Estim Creat Clear Calc 8.35, Est GFR (MDRD) Af Amer 12 L, Est GFR (MDRD) Non-Af 10 L, BUN/Creatinine Ratio 7.8 L, Glucose 98, Calcium 8.8, Magnesium 2.3, Total Bilirubin 0.50, AST 22, ALT 11 L, Alkaline Phosphatase 78, Troponin I 0.035, Total Protein 6.0 L, Albumin 2.4 L, Globulin 3.6, Albumin/Globulin Ratio 0.7 L 04/14/20 16:30: Phosphorus 4.0 04/14/20 16:54: Urine Color Yellow, Urine Clarity Clear, Urine pH 8.0, Ur Specific [place] 1.010, Urine Protein 100 H, Urine Glucose (UA) 100 H, Urine Ketones Negative, Urine Occult Blood Negative, Urine Nitrite Negative, Urine Bilirubin Negative, Urine Urobilinogen Normal, Ur Leukocyte Esterase Negative, Urine RBC 0-5 SEEN, Urine WBC 0-5 SEEN, Ur Squamous Epith Cells 0-5 SEEN, Urine Bacteria 0 SEEN, Urine Mucus 0 SEEN 04/15/20 06:12: WBC 6.8, RBC 3.24 L, Hgb 11.3 L, Hct 36.2 L, MCV 111.7 H, MCH 34.9 H, MCHC 31.2 L, RDW Std Deviation 57.2 H, RDW Coeff of Allison 14.0, Plt Count 189, MPV 9.0, Immature Gran % (Auto) 0.700, Neut % (Auto) 70.8 H, Lymph % (Auto) 16.5 L, [place] % (Auto) 9.0, Eos % (Auto) 2.7, Baso % (Auto) 0.3, Absolute Neuts (auto) 4.8, Absolute Lymphs (auto) 1.12, Nucleated RBC % 0 04/15/20 06:12: Sodium 137, Potassium 4.7, Chloride 102, Carbon Dioxide 28.0, Anion Gap 7, BUN 44 H, Creatinine 4.99 H, Estim Creat Clear Calc 8.05, Est GFR (MDRD) Af Amer 11 L, Est GFR (MDRD) Non-Af 9 L, BUN/Creatinine Ratio 8.8 L, Glucose 77, Calcium 7.9 L, Total Bilirubin 0.30, AST 12 L, ALT 10 L, Alkaline Phosphatase 69, Total Protein 5.4 L, Albumin 1.9 L, Globulin 3.5, Albumin/Globulin Ratio 0.5 L 04/15/20 06:12: Hemoglobin A1c 4.7 04/15/20 06:54: POC Glucose 77 Current Medications Acetaminophen (Tylenol) 650 mg PO Q6H PRN PRN PRN Reason: Pain Score 1-10/Temp > 100.7 F Last Admin: 04/15/20 14:45 Dose: 650 mg Documented by: Hydrocodone Bitart/Acetaminophen ([place] 5mg-325mg) 1 - 2 tablet PO Q4H PRN PRN PRN Reason: Pain Score 4-10/10 Last Admin: 04/15/20 05:49 Dose: 1 tablet Documented by: Al Hydroxide/Mg Hydroxide (Mylanta Ii) 30 ml PO Q6H PRN PRN PRN Reason: Gastric Burning Albuterol Sulfate (Ventolin Aerosols) 2.5 mg INHALATION Q2H PRN PRN PRN Reason: Dyspnea, wheezing Amlodipine Besylate (Norvasc) 10 mg PO DAILY [facility] Last Admin: 04/15/20 12:29 Dose: 10 mg Documented by: Aspir[facility] ([facility]cotrin) [facility] Bumetanide (Bumex) 1 mg PO QODAY [facility] Calamine/Phenol (Calmoseptine Ointment) 1 applic TOPICAL 4X/DAY [facility]; Protocol Last Admin: 04/15/20 14:36 Dose: 1 applicatio Documented by: Clonidine (Catapres) 0.1 mg PO TID [facility] Last Admin: 04/15/20 14:37 Dose: 0.1 mg Documented by: Diltiazem HCl (Cardizem Cd) 120 mg PO DAILY [facility] Last Admin: 04/15/20 12:28 Dose: 120 mg Documented by: Famotidine (Pepcid) 20 mg PO DAILY [facility] Fentanyl Citrate (Sublimaze (100mcg Ampule)) 25 mcg IV Q4H PRN PRN PRN Reason: severe pain 6-10/10 Gabapentin (Neurontin) 200 mg PO QHS [facility] Gabapentin (Neurontin) 100 mg PO 0800,1400 [facility] Last Admin: 04/15/20 14:37 Dose: Not Given Documented by: Guaifenesin (Robitussin) 20 ml PO Q4H PRN PRN PRN Reason: COUGH Heparin Sodium (Porcine) (Heparin Na) 5,000 unit SC Q12 [facility] Last Admin: 04/15/20 09:41 Dose: 5,000 unit Documented by: Hydralazine HCl (Apresoline) 50 mg PO TID [facility] Last Admin: 04/15/20 14:36 Dose: 50 mg Documented by: Hydralazine HCl (Apresoline Iv) 10 mg IV Q4H PRN PRN PRN Reason: SBP > 160 Last Admin: 04/15/20 09:46 Dose: 10 mg Documented by: Losartan Potassium (Cozaar) 50 mg PO DAILY [facility] Last Admin: 04/15/20 12:29 Dose: 50 mg Documented by: Magnesium Hydroxide (Milk Of Magnesia) 30 ml PO DAILY PRN PRN PRN Reason: Constipation Melatonin (Melatonin) 3 mg PO QHS PRN PRN PRN Reason: INSOMNIA Nutritional Formula (Nepro Carb Steady) 120 ml PO 4X/DAY [facility] Ondansetron HCl (Zofran) 4 mg IV Q8H PRN PRN PRN Reason: NAUSEA/VOMITING Prednisone () 5 mg PO DAILYCM [facility] Prochlorperazine Edisylate (Compazine Iv) 5 mg IV Q4H PRN PRN PRN Reason: Breakthrough nausea/vomiting Psyllium Hydrophilic Mucilloid (Metamucil) 1 packet PO DAILY PRN PRN PRN Reason: Constipation Senna/Docusate Sodium (Senokot-S, Sneha-Colace) 2 tablet PO BID PRN PRN PRN Reason: Constipation Sevelamer Carbonate (Renvela) 800 mg PO DAILY [facility] Sodium Chloride () 10 - 40 ml IV UD PRN PRN Reason: SALINE FLUSH Last Admin: 04/15/20 09:52 Dose: 10 ml Documented by: Throat Lozenges (Cepacol Sore Throat Lozenge) 1 lozenge MUCOUS MEM Q2H PRN PRN PRN Reason: SORE THROAT Assessment/Plan All Active Problems (Last Reviewed 02/04/20 @ 14:04 by NICK MarshC) Weakness (Acute) Contusion of left hip (Acute) Adult failure to thrive (Acute) Respiratory failure (Resolved 07/18/18) Nausea & vomiting (Acute) Diverticulitis (Acute) 1- ESRD on TTD HD session today as per her chronic order 2- Anemia: Hgb > 11 . hold on JOMAR 3- HTN: BP is elevated. continue same BP med monitor BP after HD 4- BMD: on sevelamer with meals. monitor P and Ca Renal team will continue to follow Nba Jernigan MD
[2020-04-15] MEDS: Aspirin E.C. 81 MG Tablet PO (20:54)
[2020-04-15] MEDS: predniSONE 5 MG Tablet PO (20:55)
[2020-04-15] MEDS: Famotidine 20 MG Tablet PO (20:55)
[2020-04-16] VITALS (9 sets, daily range): BP systolic 152–178; BP diastolic 59–89; PULSE 63–82; RESP 16; TEMP 36.6–37; O2SAT 98–100
[2020-04-16] MEDS: hydrALAZINE 20 MG/ML Vial 10 MG IV (04:10)
[2020-04-16] MEDS: 0.9% Saline Lock 10 ML Syringe IV ×2 (04:10→08:33)
[2020-04-16] MEDS: hydrALAZINE 50 MG Tablet PO ×3 (06:44→21:31)
[2020-04-16] MEDS: cloNIDine HCl 0.1 MG Tablet PO ×3 (06:44→21:31)
[2020-04-16] MEDS: HYDROcodone Bitartrate/Apap 5/325 Tablet PO ×2 (06:48→21:34)
[2020-04-16 07:50] LABS: Absolute Lymphocyte Count 0.55 X10^3/uL (0.83-4.51); Basophil# 0.02 X10^3/uL; Basophil% 0.2 % (0-1); Eosinophils% 2.1 % (0-5); Hematocrit 33.7 % (37-47); Hemoglobin 10.8 g/dL (12.0-15.0); Lymphocyte # 0.55 X10^3/ul (4.0); Lymphocyte % 5.8 % (19-41); Mean Corpuscular Hgb 35.1 pg (27.0-32.0); Mean Corpuscular Volume 109.4 fL (81-99); Monocyte% 7.4 % (0-10); NRBC Flagged by Analyzer 0 % (0-5); Neutrophil # 7.95 X10^3/uL (2.7-7.7); POSITIVE DIFFERENTIAL YES; Platelet Count 152 K/mm3 (150-450); RBC Distribution Width CV 14.1 % (11.6-14.6); RBC Distribution Width SD 56.5 fl (35.1-43.9); Red Blood Count 3.08 M/mm3 (4.2-5.4); White Blood Count 9.5 K/mm3 (4.4-11.0)
[2020-04-16 07:51] LABS: Differential Indicated SCAN CRITERIA MET
--- NOTE | 2020-04-16 08:02 | EKG12_ITS ---
Test Reason : Blood Pressure : / mmHG Vent. Rate : 063 BPM Atrial Rate : 063 BPM P-R Int : 234 ms QRS Dur : 096 ms QT Int : 422 ms P-R-T Axes : 080 -22 -37 degrees QTc Int : 431 ms Sinus rhythm with 1st degree A-V block Septal infarct (cited on or before 14-APR-2020) Abnormal ECG When compared with ECG of 14-APR-2020 16:23, [place] interval has increased Confirmed by RICKIE CAT ([id number]), content editor AMANDA REID ([id number]) on 04/27/2020 9:06:46 AM Referred By: Vinita Rodriguez Confirmed By:RICKIE CAT
[2020-04-16 08:20] LABS: Anion Gap 5 (5-15); BUN 37 mg/dL (7-18); BUN/Creat Ratio 8.4 RATIO (10-20); Calcium,Total 8.3 mg/dL (8.5-10.1); Chloride 104 mmol/L (98-107); Creatinine, Serum 4.38 mg/dL (0.55-1.02); EST Glomerular Filtration Rate 10 mL/min (>60); Est Glom Filt Rate - Afr Amer 13 mL/min (>60); Estimated Creatinine Clearance 9.24 ml/min; Glucose 67 mg/dL (74-106); Potassium 4.6 mmol/L (3.5-5.1); Sodium Level 138 mmol/L (136-145)
[2020-04-16 08:25] LABS: Hypochromasia RARE; Macrocytosis 1+; Platelet Estimate ADEQUATE (ADEQ)
[2020-04-16] MEDS: Gabapentin 100 MG Capsule PO ×2 (08:27→14:48)
[2020-04-16] MEDS: Aspirin E.C. 81 MG Tablet PO (08:28)
[2020-04-16] MEDS: predniSONE 5 MG Tablet PO (08:29)
[2020-04-16] MEDS: Menthol/Lanolin/Calamine/Znox 113 GM Tube 1 APPLIC TOPICAL ×4 (08:33→21:31)
[2020-04-16] MEDS: Bumetanide 2 MG Tablet 1 MG PO (08:44)
[2020-04-16] MEDS: Losartan Potassium 50 MG Tablet PO (08:45)
[2020-04-16] MEDS: dilTIAZem CD 120 MG Capsule PO (08:45)
[2020-04-16] MEDS: SEVELAMER CARBONATE 800 MG TABLET PO (08:47)
[2020-04-16] MEDS: amLODIPine 10 MG Tablet PO (08:47)
[2020-04-16] MEDS: Famotidine 20 MG Tablet PO (08:47)
[2020-04-16] MEDS: fentaNYL 100 MCG/2 ML Ampul 25 MCG IV (08:53)
[2020-04-16] MEDS: Heparin Injection (Vial) 5,000 UNIT/ML VIAL 5000 UNIT SC ×2 (09:00→21:35)
[2020-04-16] MEDS: Nepro Liquid 120 ML LIQUID PO ×2 (09:05→14:50)
--- NOTE | 2020-04-16 09:07 | PN_ITS ---
Patient Problems: Active and Suspected Problems (Last Reviewed 02/04/20 @ 14:04 by Rahul Delgado, LAUREN-C) Weakness (Acute) Contusion of left hip (Acute) Adult failure to thrive (Acute) Subjective: Patient seen and examined. She says she had a rough night because she has so many things going on in her family that she was thinking about. Her is due to have heart surgery next week and she is worried about him. She has remained hemodynamically stable. She does complain of back pain which is not new and states it radiates down to her legs. She does follow-up with pain management. Will consult pain management. Blood pressure remains elevated at 178/85 today. Vitals/I&O's: Vital Signs Temp Pulse Resp BP Pulse Ox 98.0 F 82 16 178/85 H 98 04/16/20 03:55 04/16/20 06:44 04/16/20 03:55 04/16/20 06:44 04/16/20 07:03 Oxygen Delivery Method Room Air Weight: 123 lb 14.397 oz Body Mass Index (BMI) 18.9 Intake and Output for Last 24 Hours 04/14/20 04/15/20 04/16/20 23:59 23:59 23:59 Intake Total 2505 / 2805 400 / 400 Output Total 0 / 0 Balance 2505 / 2805 400 / 400 General: Alert, Oriented x3, Cooperative, HEENT: Atraumatic, PERRLA, EOMI, Normocephalic Oral: Dry Mucosa Neck: Supple, No JVD, Negative Carotid Bruits Lungs: Clear to auscultation, Normal air movement, No rhonchi, No wheeze Cardiovascular: Regular rate, No murmurs Abdomen: Bowel Sounds Present, Soft, Non Tender Extremities: No clubbing, No cyanosis, No edema, Capillary Refill Less than 3 Seconds, - - AV fistula in left wrist. Skin: No rashes, No breakdown Musculoskeletal: No Tenderness to Palpation of Joints or Extremities Lymphatic: No Cervical, Supraclavicular, or Inguinal Adenopathy Neurological: Cranial nerves II-XII grossly intact, Neuro grossly intact, Motor Exam 5/5 strength throughout Psych/Mental Status: - -calm, pleasant Laboratory Results 04/16/20 07:40: WBC 9.5, RBC 3.08 L, Hgb 10.8 L, Hct 33.7 L, MCV 109.4 H, MCH 35.1 H, MCHC 32.0, RDW Std Deviation 56.5 H, RDW Coeff of Allison 14.1, Plt Count 152, MPV 9.0, Immature Gran % (Auto) 0.500, Neut % (Auto) 84.0 H, Lymph % (Auto) 5.8 L, [place] % (Auto) 7.4, Eos % (Auto) 2.1, Baso % (Auto) 0.2, Absolute Neuts (auto) 8.0 H, Absolute Lymphs (auto) 0.55 L, Nucleated RBC % 0, Platelet Estimate ADEQUATE, Hypochromasia RARE, Macrocytosis 1+ 04/16/20 07:40: Sodium 138, Potassium 4.6, Chloride 104, Carbon Dioxide 29.0, Anion Gap 5, BUN 37 H, Creatinine 4.38 H, Estim Creat Clear Calc 9.24, Est GFR (MDRD) Af Amer 13 L, Est GFR (MDRD) Non-Af 10 L, BUN/Creatinine Ratio 8.4 L, Glu cose 67 L, Calcium 8.3 L Current Medications Acetaminophen (Tylenol) 650 mg PO Q6H PRN PRN PRN Reason: Pain Score 1-10/Temp > 100.7 F Last Admin: 04/15/20 14:45 Dose: 650 mg Documented by: Hydrocodone Bitart/Acetaminophen ([place] 5mg-325mg) 1 - 2 tablet PO Q4H PRN PRN PRN Reason: Pain Score 4-10/10 Last Admin: 04/16/20 06:48 Dose: 2 tablet Documented by: Al Hydroxide/Mg Hydroxide (Mylanta Ii) 30 ml PO Q6H PRN PRN PRN Reason: Gastric Burning Albuterol Sulfate (Ventolin Aerosols) 2.5 mg INHALATION Q2H PRN PRN PRN Reason: Dyspnea, wheezing Amlodipine Besylate (Norvasc) 10 mg PO DAILY [facility] Last Admin: 04/16/20 08:47 Dose: 10 mg Documented by: [facility]) [facility] Last Admin: 04/16/20 08:28 Dose: 81 mg Documented by: Bumetanide (Bumex) 1 mg PO QODAY [facility] Last Admin: 04/16/20 08:44 Dose: 1 mg Documented by: Calamine/Phenol (Calmoseptine Ointment) 1 applic TOPICAL 4X/DAY [facility]; Protocol Last Admin: 04/16/20 08:33 Dose: 1 applicatio Documented by: Clonidine (Catapres) 0.1 mg PO TID [facility] Last Admin: 04/16/20 06:44 Dose: 0.1 mg Documented by: Diltiazem HCl (Cardizem Cd) 120 mg PO DAILY [facility] Last Admin: 04/16/20 08:45 Dose: 120 mg Documented by: Famotidine (Pepcid) 20 mg PO DAILY [facility] Last Admin: 04/16/20 08:47 Dose: 20 mg Documented by: Fentanyl Citrate (Sublimaze (100mcg Ampule)) 25 mcg IV Q4H PRN PRN PRN Reason: severe pain 6-1010 Last Admin: 04/16/20 08:53 Dose: 25 mcg Documented by: Gabapentin (Neurontin) 200 mg PO QHS [facility] Last Admin: 04/15/20 21:01 Dose: 200 mg Documented by: Gabapentin (Neurontin) 100 mg PO 0800,1400 [facility] Last Admin: 04/16/20 08:27 Dose: 100 mg Documented by: Guaifenesin (Robitussin) 20 ml PO Q4H PRN PRN PRN Reason: COUGH Heparin Sodium (Porcine) (Heparin Na) 5,000 unit SC Q12 [facility] Last Admin: 04/16/20 09:00 Dose: 5,000 unit Documented by: Hydralazine HCl (Apresoline) 50 mg PO TID [facility] Last Admin: 04/16/20 06:44 Dose: 50 mg Documented by: Hydralazine HCl (Apresoline Iv) 10 mg IV Q4H PRN PRN PRN Reason: SBP > 160 Last Admin: 04/16/20 04:10 Dose: 10 mg Documented by: Losartan Potassium (Cozaar) 50 mg PO DAILY [facility] Last Admin: 04/16/20 08:45 Dose: 50 mg Documented by: Magnesium Hydroxide (Milk Of Magnesia) 30 ml PO DAILY PRN PRN PRN Reason: Constipation Melatonin (Melatonin) 3 mg PO QHS PRN PRN PRN Reason: INSOMNIA Nutritional Formula (Nepro Carb Steady) 120 ml PO 4X/DAY [facility] Last Admin: 04/16/20 09:05 Dose: 120 ml Documented by: Ondansetron HCl (Zofran) 4 mg IV Q8H PRN PRN PRN Reason: NAUSEA/VOMITING Prednisone () 5 mg PO DAILYCM [facility] Last Admin: 04/16/20 08:29 Dose: 5 mg Documented by: Prochlorperazine Edisylate (Compazine Iv) 5 mg IV Q4H PRN PRN PRN Reason: Breakthrough nausea/vomiting Psyllium Hydrophilic Mucilloid (Metamucil) 1 packet PO DAILY PRN PRN PRN Reason: Constipation Senna/Docusate Sodium (Senokot-S, Sneha-Colace) 2 tablet PO BID PRN PRN PRN Reason: Constipation Sevelamer Carbonate (Renvela) 800 mg PO DAILY [facility] Last Admin: 04/16/20 08:47 Dose: 800 mg Documented by: Sodium Chloride () 10 - 40 ml IV UD PRN PRN Reason: SALINE FLUSH Last Admin: 04/16/20 08:33 Dose: 10 ml Documented by: Throat Lozenges (Cepacol Sore Throat Lozenge) 1 lozenge MUCOUS MEM Q2H PRN PRN PRN Reason: SORE THROAT STROKE Vital Signs/Narrative: Vital Signs Pulse BP Pulse Ox 04/16/20 07:03 98 04/16/20 06:44 82 178/85 H Medical Necessity - Tobacco Use Smoking Status: Former smoker Tobacco Use: Non-smoker Assessment/Plan All Active Problems (Last Reviewed 02/04/20 @ 14:04 by Rahul Delgado, INSTRUMENTAL MUSIC TEACHER-C) Weakness (Acute) Contusion of left hip (Acute) Adult failure to thrive (Acute) Respiratory failure (Resolved 07/18/18) Nausea & vomiting (Acute) Diverticulitis (Acute) 1. Debility due to frequent falls and failure to thrive * complains of back pain toay. * PT OT on board. Fall precautions. * May need placement if she is agreeable. * 2. CAD status post bare-metal stent placement: On aspirin; not on statin or beta-ronnie. On Cardizem and telmisartan. 3. Hypertension: On amlodipine, clonidine, Cardizem, telmisartan, hydralazine and bumetanide. BP poorly controlled. IV hydralazine as needed. 4. Chronic pain syndrome: * complains of back and leg pains today. * Follows Dr Solomon on outpatient basis. WIll consult pain management tomorrow for pain shot as needed. * On [place] and gabapentin. * get xrays of lumbar spine. 5. COPD and pulmonary fibrosis: On albuterol as needed. 6. Sjogren's disease: On chronic steroids. 7. ESRD on hemodialysis. On dialysis Tuesdays and Saturdays. Had dialysis yesterday. On sevelamer. 8. Anemia of chronic disease: Hemoglobin is 10.8 today. Stable. Will monitor. 9. H protein calorie malnutrition. BMI is 18.8. Nutrition on board. DVT prophylaxis: Heparin Inpatient E&M: 43297 Subs Hosp L2
--- NOTE | 2020-04-16 09:17 | RAD_ITS ---
STUDY: X-RAY - LUMBAR SPINE REASON FOR EXAM: Female, 79 years old. BACK PAIN, BILATERAL HIP PAIN TECHNIQUE: 3 view(s) of the lumbar spine were obtained. COMPARISON: 01/03/2020 FINDINGS: Normal lumbar lordosis. There is a levoscoliosis of the lumbar spine. Stable anterolisthesis of L4-L5 with fusion hardware at L4-L5, stable. There is diffuse demineralization with multi-level endplate spondylosis. There is multi-level degenerative disc disease with multi-level disc space narrowing. There is no demonstrated fracture. There is atherosclerotic calcification of the abdominal aorta without a demonstrated aneurysm. RAD/Lumbar Spine 2 or 3 Views IMPRESSION: 1. No acute compression fracture. Stable degenerative and operative changes. Electronically Signed: Leonard Hassan MD ([place]) at 14:32 EDT , Service support ,
--- NOTE | 2020-04-16 11:21 | NURSING ---
Dr. Pacheco ordered EKG. Done and picture of it taken and sent via Cortext to Dr. Pacheco. Dr. Pacheco wants nursing to continue to monitor pt.
[2020-04-16] MEDS: Psyllium 1 PACKET PO (11:50)
[2020-04-16] MEDS: Magnesium Hydroxide 30 ML UDC PO (11:50)
[2020-04-16] MEDS: Senna/Docusate Sodium 1 Tablet 2 TABLET PO (14:45)
[2020-04-16] MEDS: Isosorbide Mononitrate 30 MG Tablet PO ×2 (14:46→21:31)
[2020-04-16] MEDS: Gabapentin 100 MG Capsule 200 MG PO (21:31)
[2020-04-17 03:30] VITALS: BP 117/54; PULSE 62; RESP 16; TEMP 37.2; O2SAT 98
[2020-04-17 06:02] LABS: Absolute Lymphocyte Count 0.57 X10^3/uL (0.83-4.51); Absolute Neutrophil Count 6.2 X10^3/uL (2.0-7.7); Basophil# 0.01 X10^3/uL; Basophil% 0.1 % (0-1); Eosinophil# 0.15 X10^3/uL; Hematocrit 31.2 % (37-47); Hemoglobin 9.7 g/dL (12.0-15.0); Lymphocyte # 0.57 X10^3/ul (4.0); Lymphocyte % 7.5 % (19-41); Mean Corp Hgb Conc 31.1 g/dL (32-36); Mean Corpuscular Volume 109.5 fL (81-99); Mean Platelet Vol. 9.2 fl (6.2-12.0); Monocyte# 0.66 X10^3/uL; Monocyte% 8.7 % (0-10); NRBC Flagged by Analyzer 0 % (0-5); Neutrophil # 6.18 X10^3/uL (2.7-7.7); Neutrophil % 81.2 % (47-70); POSITIVE DIFFERENTIAL YES; Platelet Count 160 K/mm3 (150-450); RBC Distribution Width SD 55.8 fl (35.1-43.9); Red Blood Count 2.85 M/mm3 (4.2-5.4); White Blood Count 7.6 K/mm3 (4.4-11.0)
[2020-04-17 06:06] LABS: Differential Indicated SCAN CRITERIA MET
[2020-04-17 06:14] LABS: Differential Comment SCANNED
[2020-04-17 06:18] LABS: Albumin, Serum 1.8 g/dL (3.2-5.0); BUN 53 mg/dL (7-18); Calcium,Total 8.4 mg/dL (8.5-10.1); Chloride 98 mmol/L (98-107); EST Glomerular Filtration Rate 7 mL/min (>60); Est Glom Filt Rate - Afr Amer 9 mL/min (>60); Estimated Creatinine Clearance 6.86 ml/min; Glucose 111 mg/dL (74-106); Phosphorus 5.2 mg/dL (2.5-4.9); Potassium 5.8 mmol/L (3.5-5.1); Sodium Level 135 mmol/L (136-145)
[2020-04-17 06:39] VITALS: BP 130/64; PULSE 64
[2020-04-17] MEDS: Isosorbide Mononitrate 30 MG Tablet PO ×3 (06:39→21:13)
[2020-04-17] MEDS: hydrALAZINE 50 MG Tablet PO ×3 (06:39→21:13)
[2020-04-17] MEDS: cloNIDine HCl 0.1 MG Tablet PO ×3 (06:39→21:13)
--- NOTE | 2020-04-17 07:25 | PN_ITS ---
Patient Problems: Active and Suspected Problems (Last Reviewed 02/04/20 @ 14:04 by Rahul Delgado IMPREGNATOR AND DRIER-C) Weakness (Acute) Contusion of left hip (Acute) Adult failure to thrive (Acute) Reason for Visit: Follow-up on debility/recurrent falls/failure to thrive Subjective: Patient was seen and examined. Complains of pain radiating to her legs especially her right leg. Denies any fever or chills. She otherwise feels improved. She is open to going somewhere for subacute rehab versus home health. Objective: Physical exam: General: Alert, Oriented x3, Cooperative, HEENT: Atraumatic, PERRLA, EOMI, Normocephalic Oral: Dry Mucosa Neck: Supple, No JVD, Negative Carotid Bruits Lungs: Clear to auscultation, Normal air movement, No rhonchi, No wheeze Cardiovascular: Regular rate, No murmurs Abdomen: Bowel Sounds Present, Soft, Non Tender Extremities: No clubbing, No cyanosis, No edema, Capillary Refill Less than 3 Seconds, - - AV fistula in left wrist. Skin: No rashes, No breakdown Musculoskeletal: No Tenderness to Palpation of Joints or Extremities Lymphatic: No Cervical, Supraclavicular, or Inguinal Adenopathy Neurological: Cranial nerves II-XII grossly intact, Neuro grossly intact, Motor Exam 5/5 strength throughout Psych/Mental Status: - -calm, pleasant Vitals/I&O's: Vital Signs Temp Pulse Resp BP Pulse Ox 98.9 F 64 16 130/64 H 98 04/17/20 03:30 04/17/20 06:39 04/17/20 03:30 04/17/20 06:39 04/17/20 03:30 Oxygen Delivery Method Room Air Weight: 56 kg Body Mass Index (BMI) 18.9 Intake and Output for Last 24 Hours 04/15/20 04/16/20 04/17/20 23:59 23:59 23:59 Intake Total 2505 / 2805 520 / 520 200 / 200 Output Total 0 / 0 Balance 2505 / 2805 520 / 520 200 / 200 Laboratory Results 04/16/20 07:40: WBC 9.5, RBC 3.08 L, Hgb 10.8 L, Hct 33.7 L, MCV 109.4 H, MCH 35.1 H, MCHC 32.0, RDW Std Deviation 56.5 H, RDW Coeff of [place] 14.1, Plt Count 152, MPV 9.0, Immature Gran % (Auto) 0.500, Neut % (Auto) 84.0 H, Lymph % (Auto) 5.8 L, [place] % (Auto) 7.4, Eos % (Auto) 2.1, Baso % (Auto) 0.2, Absolute Neuts (auto) 8.0 H, Absolute Lymphs (auto) 0.55 L, Nucleated RBC % 0, Platelet Estimate ADEQUATE, Hypochromasia RARE, Macrocytosis 1+ 04/16/20 07:40: Sodium 138, Potassium 4.6, Chloride 104, Carbon Dioxide 29.0, Anion Gap 5, BUN 37 H, Creatinine 4.38 H, Estim Creat Clear Calc 9.24, Est GFR (MDRD) Af Amer 13 L, Est GFR (MDRD) Non-Af 10 L, BUN/Creatinine Ratio 8.4 L, Glucose 67 L, Calcium 8.3 L 04/17/20 05:44: WBC 7.6, RBC 2.85 L, Hgb 9.7 L, Hct 31.2 L, MCV 109.5 H, MCH 34.0 H, MCHC 31.1 L, RDW Std Deviation 55.8 H, RDW Coeff of Allison 14.0, Plt Count 160, MPV 9.2, Immature Gran % (Auto) 0.500, Neut % (Auto) 81.2 H, Lymph % (Auto) 7.5 L, [place] % (Auto) 8.7, Eos % (Auto) 2.0, Baso % (Auto) 0.1, Absolute Neuts (auto) 6.2, Absolute Lymphs (auto) 0.57 L, Nucleated RBC % 0, Differential Comment SCANNED 04/17/20 05:44: Sodium 135 L, Potassium 5.8 H, Chloride 98, Carbon Dioxide 29.0, BUN 53 H, Creatinine 5.90 H, Estim Creat Clear Calc 6.86, Est GFR (MDRD) Af Amer 9 L, Est GFR (MDRD) Non-Af 7 L, BUN/Creatinine Ratio 9.0 L, Glucose 111 H, Calcium 8.4 L, Phosphorus 5.2 H, Albumin 1.8 L Current Medications Acetaminophen (Tylenol) 650 mg PO Q6H PRN PRN PRN Reason: Pain Score 1-10/Temp > 100.7 F Last Admin: 04/15/20 14:45 Dose: 650 mg Documented by: Hydrocodone Bitart/Acetaminophen ([place] 5mg-325mg) 1 - 2 tablet PO Q4H PRN PRN PRN Reason: Pain Score 4-10/10 Last Admin: 04/16/20 21:34 Dose: 2 tablet Documented by: Al Hydroxide/Mg Hydroxide (Mylanta Ii) 30 ml PO Q6H PRN PRN PRN Reason: Gastric Burning Albuterol Sulfate (Ventolin Aerosols) 2.5 mg INHALATION Q2H PRN PRN PRN Reason: Dyspnea, wheezing Amlodipine Besylate (Norvasc) 10 mg PO DAILY [facility] Last Admin: 04/16/20 08:47 Dose: 10 mg Documented by: [facility] Last Admin: 04/16/20 08:28 Dose: 81 mg Documented by: Bumetanide (Bumex) 1 mg PO QODAY [facility] Last Admin: 04/16/20 08:44 Dose: 1 mg Documented by: Calamine/Phenol (Calmoseptine Ointment) 1 applic TOPICAL 4X/DAY [facility]; Protocol Last Admin: 04/16/20 21:31 Dose: 1 applicatio Documented by: Clonidine (Catapres) 0.1 mg PO TID [facility] Last Admin: 04/17/20 06:39 Dose: 0.1 mg Documented by: Diltiazem HCl (Cardizem Cd) 120 mg PO DAILY [facility] Last Admin: 04/16/20 08:45 Dose: 120 mg Documented by: Famotidine (Pepcid) 20 mg PO DAILY [facility] Last Admin: 04/16/20 08:47 Dose: 20 mg Documented by: Gabapentin (Neurontin) 100 mg PO 0800,1400 [facility] Last Admin: 04/16/20 14:48 Dose: 100 mg Documented by: Gabapentin (Neurontin) 200 mg PO QHS [facility] Last Admin: 04/16/20 21:31 Dose: 200 mg Documented by: Guaifenesin (Robitussin) 20 ml PO Q4H PRN PRN PRN Reason: COUGH Heparin Sodium (Porcine) (Heparin Na) 5,000 unit SC Q12 [facility] Last Admin: 04/16/20 21:35 Dose: 5,000 unit Documented by: Hydralazine HCl (Apresoline) 50 mg PO TID [facility] Last Admin: 04/17/20 06:39 Dose: 50 mg Documented by: Hydralazine HCl (Apresoline Iv) 10 mg IV Q4H PRN PRN PRN Reason: SBP > 160 Last Admin: 04/16/20 04:10 Dose: 10 mg Documented by: Isosorbide Mononitrate (Imdur) 30 mg PO TID [facility] Last Admin: 04/17/20 06:39 Dose: 30 mg Documented by: Losartan Potassium (Cozaar) 50 mg PO DAILY [facility] Last Admin: 04/16/20 08:45 Dose: 50 mg Documented by: Magnesium Hydroxide (Milk Of Magnesia) 30 ml PO DAILY PRN PRN PRN Reason: Constipation Last Admin: 04/16/20 11:50 Dose: 30 ml Documented by: Melatonin (Melatonin) 3 mg PO QHS PRN PRN PRN Reason: INSOMNIA Nutritional Formula (Nepro Carb Steady) 120 ml PO 4X/DAY [facility] Last Admin: 04/16/20 21:43 Dose: Not Given Documented by: Ondansetron HCl (Zofran) 4 mg IV Q8H PRN PRN PRN Reason: NAUSEA/VOMITING Prednisone () [facility] Last Admin: 04/16/20 08:29 Dose: 5 mg Documented by: Prochlorperazine Edisylate (Compazine Iv) 5 mg IV Q4H PRN PRN PRN Reason: Breakthrough nausea/vomiting Psyllium Hydrophilic Mucilloid (Metamucil) 1 packet PO DAILY PRN PRN PRN Reason: Constipation Last Admin: 04/16/20 11:50 Dose: 1 packet Documented by: Senna/Docusate Sodium (Senokot-S, Sneha-Colace) 2 tablet PO BID PRN PRN PRN Reason: Constipation Last Admin: 04/16/20 14:45 Dose: 2 tablet Documented by: Sevelamer Carbonate (Renvela) 800 mg PO DAILY [facility] Last Admin: 04/16/20 08:47 Dose: 800 mg Documented by: Sodium Chloride () 10 - 40 ml IV UD PRN PRN Reason: SALINE FLUSH Last Admin: 04/16/20 08:33 Dose: 10 ml Documented by: Throat Lozenges (Cepacol Sore Throat Lozenge) 1 lozenge MUCOUS MEM Q2H PRN PRN PRN Reason: SORE THROAT STROKE Vital Signs/Narrative: Vital Signs Temp Pulse Resp BP Pulse Ox 04/17/20 06:39 64 130/64 H 04/17/20 03:30 98.9 F 62 16 117/54 L 98 Medical Necessity - Tobacco Use Smoking Status: Former smoker Tobacco Use: Non-smoker Assessment/Plan All Active Problems (Last Reviewed 02/04/20 @ 14:04 by Rahul Delgado, IMPREGNATOR AND DRIER-C) Weakness (Acute) Contusion of left hip (Acute) Adult failure to thrive (Acute) Respiratory failure (Resolved 07/18/18) Nausea & vomiting (Acute) Diverticulitis (Acute) 1. Acute on chronic back pain, persistent X-ray of the lumbar spine showed no acute compression fractures. Showed stable degenerative changes. MRI of the spine done on 03/17/20 showed scoliosis, degenerative malalignment, spondylosis, L4-L5 disc and pedicular hardware fixation, patent thecal sac Follows with pain management, pain management consulted Continue with [place] prn, gabapentin 2. Debility second to acute on chronic back pain, PT and OT to evaluate and treat Social work/case management consulted for discharge planning 3. Hypertension, better controlled now, continue on amlodipine, clonidine, Bumex, Cardizem, hydralazine, losartan 4.CAD status post stent, continue on aspirin, Cardizem, not on statin 5. Paroxysmal atrial fibrillation/history of frequent PVCs, status post radiofrequency ablation, not on anticoagulation, continue on Cardizem 6. Sjogren's disease/pulmonary hypertension/COPD/pulmonary fibrosis, all remain stable 7. ESRD on hemodialysis, Friday??Friday Nephrology consulted 8. Severe protein calorie malnutrition, BMI 18.8, nutrition consulted 9. Chronic steroid use, continue on low-dose prednisone 5 mg daily 10. DVT PPx- Heparin SC Inpatient E&M: 53746 Subs Hosp L2
[2020-04-17] MEDS: predniSONE 5 MG Tablet PO (07:28)
[2020-04-17] MEDS: Gabapentin 100 MG Capsule PO ×2 (07:28→15:34)
[2020-04-17] MEDS: Aspirin E.C. 81 MG Tablet PO (07:30)
[2020-04-17] MEDS: Menthol/Lanolin/Calamine/Znox 113 GM Tube 1 APPLIC TOPICAL ×4 (07:30→20:50)
[2020-04-17] MEDS: Famotidine 20 MG Tablet PO (07:31)
[2020-04-17] MEDS: dilTIAZem CD 120 MG Capsule PO (07:37)
[2020-04-17] MEDS: amLODIPine 10 MG Tablet PO (07:37)
[2020-04-17] MEDS: Losartan Potassium 50 MG Tablet PO (07:37)
[2020-04-17] MEDS: SEVELAMER CARBONATE 800 MG TABLET PO (07:38)
[2020-04-17] MEDS: Nepro Liquid 120 ML LIQUID PO ×4 (07:39→20:57)
[2020-04-17] MEDS: Senna/Docusate Sodium 1 Tablet 2 TABLET PO (07:45)
[2020-04-17] MEDS: Magnesium Hydroxide 30 ML UDC PO (07:45)
[2020-04-17] MEDS: Heparin Injection (Vial) 5,000 UNIT/ML VIAL 5000 UNIT SC ×2 (07:56→21:12)
[2020-04-17 09:30] VITALS: BP 121/51; PULSE 60; RESP 16; TEMP 36.7; O2SAT 95
--- NOTE | 2020-04-17 10:18 | PCM.PN.REN ---
Patient Problems: Active and Suspected Problems (Last Reviewed 02/04/20 @ 14:04 by Rahul Delgado DENTAL DETAIL REPRESENTATIVE-C) Weakness (Acute) Contusion of left hip (Acute) Adult failure to thrive (Acute) Subjective: No acute events No nausea No vomiting No SOB - Physical Exam Vitals/I&O's: Vital Signs Temp Pulse Resp BP Pulse Ox 98.9 F 64 16 130/64 H 98 04/17/20 03:30 04/17/20 06:39 04/17/20 03:30 04/17/20 06:39 04/17/20 03:30 Oxygen Delivery Method Room Air Weight: 56 kg Body Mass Index (BMI) 18.9 Intake and Output for Last 24 Hours 04/15/20 04/16/20 04/17/20 23:59 23:59 23:59 Intake Total 2505 / 2805 520 / 520 200 / 200 Output Total 0 / 0 Balance 2505 / 2805 520 / 520 200 / 200 General: Alert, Oriented x3 HEENT: Atraumatic Oral: Moist Mucosa Neck: Supple, No JVD Lungs: Clear to auscultation, Normal air movement, No rhonchi, No wheeze Cardiovascular: Regular rate, Regular Rhythm, Normal S1, Normal S2 Abdomen: Bowel Sounds Present, Soft, Non Tender, Non-Distended Extremities: No clubbing, No cyanosis, No edema Skin: No rashes Musculoskeletal: No Tenderness to Palpation of Joints or Extremities Lymphatic: No Cervical, Supraclavicular, or Inguinal Adenopathy Neurological: Cranial nerves II-XII grossly intact, Neuro grossly intact Psych/Mental Status: Appropriate Laboratory Results 04/17/20 05:44: WBC 7.6, RBC 2.85 L, Hgb 9.7 L, Hct 31.2 L, MCV 109.5 H, MCH 34.0 H, MCHC 31.1 L, RDW Std Deviation 55.8 H, RDW Coeff of [place] 14.0, Plt Count 160, MPV 9.2, Immature Gran % (Auto) 0.500, Neut % (Auto) 81.2 H, Lymph % (Auto) 7.5 L, [place] % (Auto) 8.7, Eos % (Auto) 2.0, Baso % (Auto) 0.1, Absolute Neuts (auto) 6.2, Absolute Lymphs (auto) 0.57 L, Nucleated RBC % 0, Differential Comment SCANNED 04/17/20 05:44: Sodium 135 L, Potassium 5.8 H, Chloride 98, Carbon Dioxide 29.0, BUN 53 H, Creatinine 5.90 H, Estim Creat Clear Calc 6.86, Est GFR (MDRD) Af Amer 9 L, Est GFR (MDRD) Non-Af 7 L, BUN/Creatinine Ratio 9.0 L, Glucose 111 H, Calcium 8.4 L, Phosphorus 5.2 H, Albumin 1.8 L Current Medications Acetaminophen (Tylenol) 650 mg PO Q6H PRN PRN PRN Reason: Pain Score 1-10/Temp > 100.7 F Last Admin: 04/15/20 14:45 Dose: 650 mg Documented by: Hydrocodone Bitart/Acetaminophen ([place] 5mg-325mg) 1 - 2 tablet PO Q4H PRN PRN PRN Reason: Pain Score 4-10/10 Last Admin: 04/16/20 21:34 Dose: 2 tablet Documented by: Al Hydroxide/Mg Hydroxide (Mylanta Ii) 30 ml PO Q6H PRN PRN PRN Reason: Gastric Burning Albuterol Sulfate (Ventolin Aerosols) 2.5 mg INHALATION Q2H PRN PRN PRN Reason: Dyspnea, wheezing Amlodipine Besylate (Norvasc) 10 mg PO DAILY [facility] Last Admin: 04/17/20 07:37 Dose: 10 mg Documented by: [facility] (Ecotrin) [facility] Last Admin: 04/17/20 07:30 Dose: 81 mg Documented by: Bumetanide (Bumex) 1 mg PO QODAY [facility] Last Admin: 04/16/20 08:44 Dose: 1 mg Documented by: Calamine/Phenol (Calmoseptine Ointment) 1 applic TOPICAL 4X/DAY [facility]; Protocol Last Admin: 04/17/20 07:30 Dose: 1 applicatio Documented by: Clonidine (Catapres) 0.1 mg PO TID [facility] Last Admin: 04/17/20 06:39 Dose: 0.1 mg Documented by: Diltiazem HCl (Cardizem Cd) 120 mg PO DAILY [facility] Last Admin: 04/17/20 07:37 Dose: 120 mg Documented by: Famotidine (Pepcid) 20 mg PO DAILY [facility] Last Admin: 04/17/20 07:31 Dose: 20 mg Documented by: Gabapentin (Neurontin) 100 mg PO 0800,1400 [facility] Last Admin: 04/17/20 07:28 Dose: 100 mg Documented by: Gabapentin (Neurontin) 200 mg PO QHS [facility] Last Admin: 04/16/20 21:31 Dose: 200 mg Documented by: Guaifenesin (Robitussin) 20 ml PO Q4H PRN PRN PRN Reason: COUGH Heparin Sodium (Porcine) (Heparin Na) 5,000 unit SC Q12 [facility] Last Admin: 04/17/20 07:56 Dose: 5,000 unit Documented by: Hydralazine HCl (Apresoline) 50 mg PO TID [facility] Last Admin: 04/17/20 06:39 Dose: 50 mg Documented by: Hydralazine HCl (Apresoline Iv) 10 mg IV Q4H PRN PRN PRN Reason: SBP > 160 Last Admin: 04/16/20 04:10 Dose: 10 mg Documented by: Isosorbide Mononitrate (Imdur) 30 mg PO TID [facility] Last Admin: 04/17/20 06:39 Dose: 30 mg Documented by: Losartan Potassium (Cozaar) 50 mg PO DAILY [facility] Last Admin: 04/17/20 07:37 Dose: 50 mg Documented by: Magnesium Hydroxide (Milk Of Magnesia) 30 ml PO DAILY PRN PRN PRN Reason: Constipation Last Admin: 04/17/20 07:45 Dose: 30 ml Documented by: Melatonin (Melatonin) 3 mg PO QHS PRN PRN PRN Reason: INSOMNIA Nutritional Formula (Nepro Carb Steady) 120 ml PO 4X/DAY [facility] Last Admin: 04/17/20 07:39 Dose: 120 ml Documented by: Ondansetron HCl (Zofran) 4 mg IV Q8H PRN PRN PRN Reason: NAUSEA/VOMITING Prednisone () [facility] Last Admin: 04/17/20 07:28 Dose: 5 mg Documented by: Prochlorperazine Edisylate (Compazine Iv) 5 mg IV Q4H PRN PRN PRN Reason: Breakthrough nausea/vomiting Psyllium Hydrophilic Mucilloid (Metamucil) 1 packet PO DAILY PRN PRN PRN Reason: Constipation Last Admin: 04/16/20 11:50 Dose: 1 packet Documented by: Senna/Docusate Sodium (Senokot-S, Sneha-Colace) 2 tablet PO BID PRN PRN PRN Reason: Constipation Last Admin: 04/17/20 07:45 Dose: 2 tablet Documented by: Sevelamer Carbonate (Renvela) 800 mg PO DAILY [facility] Last Admin: 04/17/20 07:38 Dose: 800 mg Documented by: Sodium Chloride () 10 - 40 ml IV UD PRN PRN Reason: SALINE FLUSH Last Admin: 04/16/20 08:33 Dose: 10 ml Documented by: Throat Lozenges (Cepacol Sore Throat Lozenge) 1 lozenge MUCOUS MEM Q2H PRN PRN PRN Reason: SORE THROAT Medical Necessity - Tobacco Use Smoking Status: Former smoker Tobacco Use: Non-smoker Assessment/Plan All Active Problems (Last Reviewed 02/04/20 @ 14:04 by Rahul Delgado, DENTAL DETAIL REPRESENTATIVE-C) Weakness (Acute) Contusion of left hip (Acute) Adult failure to thrive (Acute) Respiratory failure (Resolved 07/18/18) Nausea & vomiting (Acute) Diverticulitis (Acute) 1- ESRD on TTD Will do short HD session today for high K No UF today Pt needs EDW adjustment 2- Anemia: Hgb is within the goal. hold on JOMAR 3- HTN: BP is well controlled. continue same BP meds monitor BP after HD 4- BMD: on sevelamer with meals. monitor P and Ca Renal team will continue to follow Nba Jernigan MD
--- NOTE | 2020-04-17 11:35 | CASEMGMT ---
Addendum entered by Naty Saleem 04/17/20 14:18: CHUCK received call from Trupti at [facility] stating they are able to accept pt and pt is able to discharge today. SW updated pt and Ryder to acceptance to [facility]. Pt became tearful stating she is missing her 's surgery and her daughter who lives in [place] is coming to take care of Ryder and she won't be able to see her daughter or Ryder while at [facility]. SW offered support to pt and explained that going to [facility] is for short term rehabilitation and they can assist with facetime, phone calls, etc. for pt while she is at SNF. Physician updated. Physician states pt is not discharging today, will discharge tomorrow. SW updated pt and Ryder that plan is [facility] tomorrow. Pt and Ryder states understanding. SW placed a call to Trupti at [facility] and updated her plan is discharge tomorrow after pt has dialysis. Plan: [facility] tomorrow skilled. Addendum entered by Naty Saleem 04/17/20 13:33: CHUCK received message from [facility] stating [facility] is not able to accept dialysis pt's. CHUCK received call from Trupti at [facility] who states pt's Ryder is at [facility] and is requesting referral being sent to [facility]. CHUCK in to speak with pt. SW updated pt that Ryder is requesting referral be sent to [facility], pt agreeable to referral being sent. CHUCK faxed referral to [facility]. Original Note: Social Work Note CHUCK in to speak with pt and pt's Ryder. SW asked pt and Ryder about SNF choices. Pt states I didn't know anything about that, I have to go to a SNF? CHUCK explained that per PT/OT it is taking mod/max assist of 2 and the recommendation is SNF. Ryder states that he is having surgery next week. Pt state that when she was in [place] she was able to stay at the hospital there for rehab and not have to go to a correction. CHUCK explained that [facility] does have two units but explained that they do not take dialysis pt's due to transportation reasons. Ryder states that family will not be able to transport pt so the correction will need to transport pt. SW explained that a lot of the SNF do not transport pt's to dialysis for financial reasons but explained that there may be a few that would be willing to transport. Pt asked for SNF list and to star the nursing homes that may be willing to transport pt. SW placed a call to [facility], [facility], [facility], [facility] and [facility]. [facility] and [facility] state they would be willing to transport. [facility] states it is a case by case basis. [facility] states they would not be able to transport. [facility] states that [facility] would transport but pt would be financially responsible for transport costs. SW provided pt with list of SNF that accept pt's insurance and informed pt of the nursing homes that would be willing to transport pt. SW also explained Medicare coverage at SNF. Pt and Ryder state they would like time to review list. CHUCK explained that this worker would be back after lunch and that medically pt is ready so a decision will need to be made today so this worker can send out referrals. CHUCK also placed a call to Natalie with [facility] and left message to confirm that they do not accept dialysis pt's. Plan: SNF pending acceptance Naty Saleem [employer]IDENT[employer] SALES PROFESSIONAL, MANAGER LAB
--- NOTE | 2020-04-17 14:51 | DIALYSIS ---
Arrived to do dialysis tx per Dr Jernigan orders. patient refused to have tx today. Pt advised it was due to K+ being elevated. Pt states she is Fri HD tx and doesnt want tx today. Dr Jernigan called. HD tx cancelled and Kayexalate 15grams ordered for elevated K+. Report given to MANI Joe. Orders faxed to pharmacy
[2020-04-17 15:30] VITALS: BP 136/50; PULSE 65; RESP 16; TEMP 36.7; O2SAT 97
[2020-04-17 15:33] VITALS: PULSE 65
--- NOTE | 2020-04-17 15:53 | TREXTCAR_ITS ---
- Diet 04/17/20 09:51 Diet: Sodium Restricted (MOD) Food consistency:: Regular Liquid Consistency:: Regular/Thin Is pt able to select menu?: Yes - Routine Orders/Code Status Routine Lab Work: CBC - within 3 days, BMP - within 3 days Code Status: Full Code - Wound(s) left hip Wound Type: Skin Tear Dressing Change: Wet to Dry Dressing - Therapies Weight Bearing: Weight bearing as tolerated Physical Therapy: Eval and Treat Occupational Therapy: Eval and Treat - Allergies/Procedures Done in Hospital Allergies/Adverse Reactions: Allergies hydrocodone Allergy (Verified 04/14/20 16:20) deathly ill sulfamethoxazole [From Bactrim] Allergy (Verified 04/14/20 16:20) Swelling trimethoprim [From Bactrim] Allergy (Verified 04/14/20 16:20) Swelling Sulfa (Sulfonamide Antibiotics) Adverse Reaction (Verified 04/14/20 16:20) Angioedema - Type of Care/Length of Stay Estimated LOS: Convalescent Care Less Than 30 days Type of Care Needed: Skilled Rehab Potential: Good Prognosis: Good - Additional Orders/Day of Discharge Additional Orders: Continue with dialysis as scheduled. Day of Discharge: 04/17/20 - Dietary and Speech Recommendations Dietitian Recommendations/Changes: Will change diet order to carbohydrate- controlled/low sodium. Will change Glucerna Shake on medpas to Nepro. - Follow Up Care Primary Care Physician: Omar Short MD [Primary Care Provider] - Please follow up with your Primary Care Physician in: within 1-2 weeks
[2020-04-17] MEDS: Sodium Polystyrene Sulfonate 15 GM/60 ML UDC PO (17:24)
[2020-04-17] MEDS: HYDROcodone Bitartrate/Apap 5/325 Tablet PO (21:00)
[2020-04-17 21:13] VITALS: BP 173/62; PULSE 68; RESP 16; TEMP 36.8; O2SAT 97
[2020-04-17] MEDS: Gabapentin 100 MG Capsule 200 MG PO (21:13)
[2020-04-18] VITALS (7 sets, daily range): BP systolic 125–173; BP diastolic 56–78; PULSE 76–93; RESP 16–18; TEMP 36.6–37.1; O2SAT 95–98
[2020-04-18] MEDS: Ondansetron 4 MG/2 ML Vial IV (00:38)
[2020-04-18] MEDS: cloNIDine HCl 0.1 MG Tablet PO ×2 (05:35→14:37)
[2020-04-18] MEDS: hydrALAZINE 50 MG Tablet PO (05:35)
[2020-04-18] MEDS: Isosorbide Mononitrate 30 MG Tablet PO ×2 (05:35→14:42)
[2020-04-18] MEDS: proCHLORPERazine 10 MG/2 ML Vial 5 MG IV ×2 (05:54→09:44)
[2020-04-18] MEDS: SEVELAMER CARBONATE 800 MG TABLET PO (07:52)
--- NOTE | 2020-04-18 09:19 | PN.RENAL_ITS ---
Patient Problems: Active and Suspected Problems (Last Reviewed 02/04/20 @ 14:04 by Rahul Delgado [employer]) Weakness (Acute) Contusion of left hip (Acute) Adult failure to thrive (Acute) Subjective: Pt has been having nausea this am diarrhea last night following kayexalate seen during HD session - Physical Exam Vitals/I&O's: Vital Signs Temp Pulse Resp BP Pulse Ox 98.6 F 83 18 173/78 H 98 04/18/20 07:29 04/18/20 07:32 04/18/20 07:29 04/18/20 07:29 04/18/20 07:29 Oxygen Delivery Method Room Air Weight: 56.6 kg Body Mass Index (BMI) 18.9 Intake and Output for Last 24 Hours 04/16/20 04/17/20 04/18/20 23:59 23:59 23:59 Intake Total 520 / 520 200 / 500 300 / 300 Output Total 0 / 0 Balance 520 / 520 200 / 500 300 / 300 General: Alert, Oriented x3 HEENT: Atraumatic Oral: Moist Mucosa Neck: Supple, No JVD Lungs: Clear to auscultation, Normal air movement, No rhonchi, No wheeze Cardiovascular: Regular rate, Regular Rhythm, Normal S1, Normal S2 Abdomen: Bowel Sounds Present, Soft, Non Tender Extremities: No clubbing, No cyanosis, No edema Skin: No rashes Musculoskeletal: No Tenderness to Palpation of Joints or Extremities Lymphatic: No Cervical, Supraclavicular, or Inguinal Adenopathy Neurological: Cranial nerves II-XII grossly intact Psych/Mental Status: Appropriate Microbiology Past 72 Hours 04/15/20 19:30 Blood Culture (Wb) - Dialysis/Fistula Blood Culture - Preliminary No growth in 48 hours. 04/15/20 19:30 Blood Culture (Wb) - Dialysis/Fistula Blood Culture - Preliminary No growth in 48 hours. Laboratory Results 04/17/20 10:48: COVID-19 ([facility]) Not Detected Current Medications Acetaminophen (Tylenol) 650 mg PO Q6H PRN PRN PRN Reason: Pain Score 1-10/Temp > 100.7 F Last Admin: 04/15/20 14:45 Dose: 650 mg Documented by: Hydrocodone Bitart/Acetaminophen ([place] 5mg-325mg) 1 - 2 tablet PO Q4H PRN PRN PRN Reason: Pain Score 4-10/10 Last Admin: 04/17/20 21:00 Dose: 1 tablet Documented by: Al Hydroxide/Mg Hydroxide (Mylanta Ii) 30 ml PO Q6H PRN PRN PRN Reason: Gastric Burning Albuterol Sulfate (Ventolin Aerosols) 2.5 mg INHALATION Q2H PRN PRN PRN Reason: Dyspnea, wheezing Amlodipine Besylate (Norvasc) 10 mg PO DAILY [facility] Last Admin: 04/17/20 07:37 Dose: 10 mg Documented by: [facility] Last Admin: 04/17/20 07:30 Dose: 81 mg Documented by: Bumetanide (Bumex) 1 mg PO QODAY [facility] Last Admin: 04/16/20 08:44 Dose: 1 mg Documented by: Calamine/Phenol (Calmoseptine Ointment) 1 applic TOPICAL 4X/DAY [facility]; Protocol Last Admin: 04/17/20 20:50 Dose: 1 applicatio Documented by: Clonidine (Catapres) 0.1 mg PO TID [facility] Last Admin: 04/18/20 05:35 Dose: 0.1 mg Documented by: Diltiazem HCl (Cardizem Cd) 120 mg PO DAILY [facility] Last Admin: 04/17/20 07:37 Dose: 120 mg Documented by: Famotidine (Pepcid) 20 mg PO DAILY [facility] Last Admin: 04/17/20 07:31 Dose: 20 mg Documented by: Gabapentin (Neurontin) 100 mg PO 0800,1400 [facility] Last Admin: 04/17/20 15:34 Dose: 100 mg Documented by: Gabapentin (Neurontin) 200 mg PO QHS [facility] Last Admin: 04/17/20 21:13 Dose: 200 mg Documented by: Guaifenesin (Robitussin) 20 ml PO Q4H PRN PRN PRN Reason: COUGH Heparin Sodium (Porcine) (Heparin Na) 5,000 unit SC Q12 [facility] Last Admin: 04/17/20 21:12 Dose: 5,000 unit Documented by: Hydralazine HCl (Apresoline Iv) 10 mg IV Q4H PRN PRN PRN Reason: SBP > 160 Last Admin: 04/16/20 04:10 Dose: 10 mg Documented by: Hydralazine HCl (Apresoline) 100 mg PO TID [facility] Isosorbide Mononitrate (Imdur) 30 mg PO TID [facility] Last Admin: 04/18/20 05:35 Dose: 30 mg Documented by: Losartan Potassium (Cozaar) 100 mg PO DAILY [facility] Magnesium Hydroxide (Milk Of Magnesia) 30 ml PO DAILY PRN PRN PRN Reason: Constipation Last Admin: 04/17/20 07:45 Dose: 30 ml Documented by: Melatonin (Melatonin) 3 mg PO QHS PRN PRN PRN Reason: INSOMNIA Nutritional Formula (Nepro Carb Steady) 120 ml PO 4X/DAY [facility] Last Admin: 04/17/20 20:57 Dose: 120 ml Documented by: Ondansetron HCl (Zofran) 4 mg IV Q8H PRN PRN PRN Reason: NAUSEA/VOMITING Last Admin: 04/18/20 00:38 Dose: 4 mg Documented by: [facility] () [facility] Last Admin: 04/17/20 07:28 Dose: 5 mg Documented by: Prochlorperazine Edisylate (Compazine Iv) 5 mg IV Q4H PRN PRN PRN Reason: Breakthrough nausea/vomiting Last Admin: 04/18/20 05:54 Dose: 5 mg Documented by: Psyllium Hydrophilic Mucilloid (Metamucil) 1 packet PO DAILY PRN PRN PRN Reason: Constipation Last Admin: 04/16/20 11:50 Dose: 1 packet Documented by: Senna/Docusate Sodium (Senokot-S, Sneha-Colace) 2 tablet PO BID PRN PRN PRN Reason: Constipation Last Admin: 04/17/20 07:45 Dose: 2 tablet Documented by: Sevelamer Carbonate (Renvela) 800 mg PO DAILY [facility] Last Admin: 04/18/20 07:52 Dose: 800 mg Documented by: Sodium Chloride () 10 - 40 ml IV UD PRN PRN Reason: SALINE FLUSH Last Admin: 04/16/20 08:33 Dose: 10 ml Documented by: Throat Lozenges (Cepacol Sore Throat Lozenge) 1 lozenge MUCOUS MEM Q2H PRN PRN PRN Reason: SORE THROAT Medical Necessity - Tobacco Use Smoking Status: Former smoker Tobacco Use: Non-smoker Assessment/Plan All Active Problems (Last Reviewed 02/04/20 @ 14:04 by Rahul Delgado NP-C) Weakness (Acute) Contusion of left hip (Acute) Adult failure to thrive (Acute) Respiratory failure (Resolved 07/18/18) Nausea & vomiting (Acute) Diverticulitis (Acute) 1- ESRD on TTD Pt refused HD session yesterday and was given kayexalate HD session today : BQ 400 DQ 600 UF 1L Pt needs EDW adjustment to 54.5 Kg . Will call the uni 2- Anemia: Hgb is within the goal. hold on JOMAR 3- HTN: BP is elevated. Will increase losartan to 100. continue same other BP meds monitor BP after HD 4- BMD: on sevelamer with meals. monitor P and Ca Renal team will continue to follow Nba Jernigan MD
[2020-04-18] MEDS: 0.9% Saline Lock 10 ML Syringe IV (09:45)
--- NOTE | 2020-04-18 12:03 | DIALYSIS ---
Addendum entered by Radha Sample 04/18/20 12:06: UF of 577ml. Not 777ml. Original Note: HD x 2 hours and 43 minutes complete. Tx discontinued 17 minutes early d/t c/o cramping. Fluid was given and UF was turned off but cramping did not resolve until her blood was returned. Dr. Jernigan was notified. Ran on 2k bath. UF of 777ml. Used left arm fistula. Roxana removed post tx and pressure applied to sites x 10 minutes. Hemostasis achieved. Fresh gauze and tape was applied. Report was given to MANI Butler.
[2020-04-18] MEDS: dilTIAZem CD 120 MG Capsule PO (12:51)
[2020-04-18] MEDS: Famotidine 20 MG Tablet PO (12:51)
[2020-04-18] MEDS: amLODIPine 10 MG Tablet PO (12:52)
[2020-04-18] MEDS: Menthol/Lanolin/Calamine/Znox 113 GM Tube 1 APPLIC TOPICAL ×2 (12:53→14:35)
[2020-04-18] MEDS: Losartan Potassium 100 MG Tablet PO (12:55)
--- NOTE | 2020-04-18 13:15 | PCM.DC.SUM ---
Discharge Date and Diagnosis - Problem List Patient Problems: Active and Suspected Problems (Last Reviewed 02/04/20 @ 14:04 by SHIRA Marsh) Weakness (Acute) Contusion of left hip (Acute) Adult failure to thrive (Acute) Date of Admission: 04/14/20 Date of Discharge: 04/18/20 - Primary Discharge Diagnosis Acute Problems: Active Problems (Last Reviewed 02/04/20 @ 14:04 by SHIRA Marsh) Acute on chronic back pain Debility Uncontrolled hypertension Severe protein calorie malnutrition Hyperkalemia - Secondary Discharge Diagnosis Chronic Problems: Chronic Problems (Last Reviewed 02/04/20 @ 14:04 by SHIRA Marsh) Protein calorie malnutrition (Chronic) History of non-ST elevation myocardial infarction (NSTEMI) (Chronic 07/18/18) Related to respiratory failure: Echo showed EF 30% with multiple segment abnormalities (EF since then has improved to date). Diabetes mellitus, type II (Chronic) Atherosclerotic heart disease of [place] coronary artery without angina pectoris (Chronic) 30% narrowing at distal left main; 30-40% proximal lesion; 50% proximal lesion in mid diagonal; stent widely patent in CX with no in-stent restenosis. 20% narrowing in distal CX. 20% narrowing in proximal RCA. Right iliofemoral angiogram: High bifurcation of the SFA/profunda famoral arteries. Arteriotomy is in the SFA. Lines removed without closure devices. Stented coronary artery (Chronic 07/26/13) 2.5 X 24 mm bare metal Express2 stent per Dr. Ayla Mills @ [facility] History of left heart catheterization (Chronic 07/13/14) Cath done @ [facility] for eval for renal transplant: 30% narrowing at distal left main; 30-40% proximal lesion; 50% proximal lesion in mid diagonal; stent widely patent in CX with no in-stent restenosis. 20% narrowing in distal CX. 20% narrowing in proximal RCA. Right iliofemoral angiogram: High bifurcation of the SFA/profunda famoral arteries. Arteriotomy is in the SFA. Lines removed without closure devices. Previous cath done 07/21/13 at same facility done for abnormal stress: Left main 20-30%. FFR of LAD, 40% proximal lesion.Diagonal 1 75% proximal occlusion, small vessel; not clinically relevant. 75% proximal CX lesion (see stent on problem list); RCA no obstructive disease. History of radiofrequency ablation (RFA) procedure for cardiac arrhythmia (Chronic 10/29/18) For frequent symptomatic PVC's per Dr. Centeno, [facility] in [place], [place] Paroxysmal atrial fibrillation (Chronic) Atrial dilatation, bilateral (Chronic) Moderate per echo 10/29/2018 Concentric left ventricular hypertrophy (Chronic) Mild per echo 10/29/18, EF 55-60%. [facility] Pericardial effusion (Chronic) Minimal per echo 10/29/2018, [place], [place] Nonrheumatic tricuspid (valve) insufficiency (Chronic) Mild, RVSP 36.6 Per echo 10/29/18 done @ [place], [place] Nonrheumatic mitral valve regurgitation (Chronic) Mild to Moderate per echo 10/29/18, [facility] Hemodialysis patient (Chronic) [place], [place], [facility] ESRD (end stage renal disease) (Chronic) AV fistula (Chronic) left forearm Anemia of chronic kidney failure (Chronic) Hypertension (Chronic) Hyperlipidemia (Chronic) Pulmonary fibrosis (Chronic) Chronic steroid use (Chronic) Sjogrens syndrome (Chronic) GERD (gastroesophageal reflux disease) (Chronic) Hyperuricemia (Chronic) Diarrhea (Chronic) History of total abdominal hysterectomy (Chronic) History of umbilical hernia repair (Chronic ~2013) History of cholecystectomy (Chronic) History of thumb surgery (Chronic ~2009) right thumb History of esophagogastroduodenoscopy (EGD) (Chronic) History of colonoscopy (Chronic 09/01/13) History of cervical spinal surgery (Chronic) Gout (Chronic) Hospital Course and Treatment Imaging Results: Clinical Impression(s) from Imaging Studies Hip/Pelvis X-Ray 04/14/20 16:16 IMPRESSION: No evidence for displaced fractures. However nondisplaced fracture not excluded. CT scan recommended. Electronically Signed: Gerry Brice MD at 17:47 EDT , Service support , Chest X-Ray 04/14/20 17:15 IMPRESSION: COPD with fibrosis. No gross acute infiltrates. Prominent right hilum, suggest CT with contrast. Electronically Signed: Gerry Brice MD at 17:54 EDT , Service support , Chest CT 04/14/20 18:16 IMPRESSION: COPD with extensive fibrosis and scarring. Atypical inflammatory infiltrates not excluded but less likely. Electronically Signed: Gerry Brice MD at 19:11 EDT , Service support , Lower Extremity CT 04/14/20 18:16 IMPRESSION: No evidence for fracture or dislocation. Degenerative changes. Electronically Signed: Gerry Brice MD at 18:47 EDT , Service support , Lumbar Spine X-Ray 04/16/20 09:17 IMPRESSION: 1. No acute compression fracture. Stable degenerative and operative changes. Electronically Signed: Leonard Hassan MD ([place]) at 14:32 EDT , Service support , Pain management?Dr. Solomon Operations: None Procedures: None Summary of Care Provided: The patient is a 79 year old F with past medical history of chronic back pain, follows up with Dr. Maldonado comes in with persistent debility. Patient was brought to the emergency department by the scaffold erector with generalized weakness and inability to get out of a chair. She has dialysis Friday, , Friday and had a full dialysis the day before admission. She went to bed and woke up, tried walking but her legs kept giving out. She uses a walker at home and had a fall injuring the left hip. The EMS was called. Vitals showed uncontrolled blood pressure. Other blood work were unremarkable. Patient was admitted to the regular [facility] floor. Patient was admitted with hyperkalemia which was treated. Nephrology was consulted. She had dialysis during the hospital stay. She had a x-ray of the lumbar spine which showed no acute compression fractures, showed stable degenerative changes. MRI of the spine done on 03/17/20 showed scoliosis, degenerative malalignment, spondylosis, L4-L5 disc and pedicular hardware fixation, patent thecal sac. Patient had an epidural in injection a week prior to admission. Pain management were consulted, did not have any new recommendations. She was seen by PT and OT and recommended for discharge [facility]. Of note is, the patient's ,who is a primary caregiver, is having cardiac surgery on 24 April. He would therefore not be able to assist patient at home. Patient was agreeable for discharge to the [facility] Patient Problems: Active and Suspected Problems (Last Reviewed 02/04/20 @ 14:04 by Rahul Delgado NP-C) Weakness (Acute) Contusion of left hip (Acute) Adult failure to thrive (Acute) Subjective: On the day of discharge, patient was seen and examined. Complains of nausea after breakfast. She had a bowel movement the night before. Denied any fever or chills. Her nausea improved during the day after being given IV Compazine. She was able to tolerate her lunch. She had dialysis also on the day of discharge. She denied any abdominal discomfort. Objective: Physical exam: General: Alert, Oriented x3, Cooperative, HEENT: Atraumatic, PERRLA, EOMI, Normocephalic Oral: Dry Mucosa Neck: Supple, No JVD, Negative Carotid Bruits Lungs: Clear to auscultation, Normal air movement, No rhonchi, No wheeze Cardiovascular: Regular rate, No murmurs Abdomen: Bowel Sounds Present, Soft, Non Tender Extremities: No clubbing, No cyanosis, No edema, Capillary Refill Less than 3 Seconds, - - AV fistula in left wrist. Skin: No rashes, No breakdown Musculoskeletal: No Tenderness to Palpation of Joints or Extremities Lymphatic: No Cervical, Supraclavicular, or Inguinal Adenopathy Neurological: Cranial nerves II-XII grossly intact, Neuro grossly intact, Motor Exam 5/5 strength throughout Psych/Mental Status: - -calm, pleasant - Physical Exam Vitals/I&O's: Vital Signs Temp Pulse Resp BP Pulse Ox 98.2 F 93 18 148/78 H 98 04/18/20 12:42 04/18/20 12:42 04/18/20 12:42 04/18/20 12:42 04/18/20 12:42 Oxygen Delivery Method Room Air Weight: 56.6 kg Body Mass Index (BMI) 18.9 Intake and Output for Last 24 Hours 04/16/20 04/17/20 04/18/20 23:59 23:59 23:59 Intake Total 520 / 520 200 / 500 500 / 500 Output Total 0 / 0 Balance 520 / 520 200 / 500 500 / 500 Microbiology Past 72 Hours 04/15/20 19:30 Blood Culture (Wb) - Dialysis/Fistula Blood Culture - Preliminary No growth in 48 hours. 04/15/20 19:30 Blood Culture (Wb) - Dialysis/Fistula Blood Culture - Preliminary No growth in 48 hours. Laboratory Results 04/17/20 10:48: COVID-19 ([facility]) Not Detected Current Medications Acetaminophen (Tylenol) 650 mg PO Q6H PRN PRN PRN Reason: Pain Score 1-10/Temp > 100.7 F Last Admin: 04/15/20 14:45 Dose: 650 mg Documented by: Hydrocodone Bitart/Acetaminophen ([place] 5mg-325mg) 1 - 2 tablet PO Q4H PRN PRN PRN Reason: Pain Score 4-10/10 Last Admin: 04/17/20 21:00 Dose: 1 tablet Documented by: Al Hydroxide/Mg Hydroxide (Mylanta Ii) 30 ml PO Q6H PRN PRN PRN Reason: Gastric Burning Albuterol Sulfate (Ventolin Aerosols) 2.5 mg INHALATION Q2H PRN PRN PRN Reason: Dyspnea, wheezing Amlodipine Besylate (Norvasc) 10 mg PO DAILY [facility] Last Admin: 04/18/20 12:52 Dose: 10 mg Documented by: Aspirin (Ecotrin) 81 mg PO DAILYCM [facility] Last Admin: 04/18/20 09:23 Dose: Not Given Documented by: Bumetanide (Bumex) 1 mg PO QODAY [facility] Last Admin: 04/18/20 12:34 Dose: Not Given Documented by: Calamine/Phenol (Calmoseptine Ointment) 1 applic TOPICAL 4X/DAY [facility]; Protocol Last Admin: 04/18/20 12:53 Dose: 1 applicatio Documented by: Clonidine (Catapres) 0.1 mg PO TID [facility] Last Admin: 04/18/20 05:35 Dose: 0.1 mg Documented by: Diltiazem HCl (Cardizem Cd) 120 mg PO DAILY [facility] Last Admin: 04/18/20 12:51 Dose: 120 mg Documented by: Famotidine (Pepcid) 20 mg PO DAILY [facility] Last Admin: 04/18/20 12:51 Dose: 20 mg Documented by: Gabapentin (Neurontin) 100 mg PO 0800,1400 [facility] Last Admin: 04/18/20 09:25 Dose: Not Given Documented by: Gabapentin (Neurontin) 200 mg PO QHS [facility] Last Admin: 04/17/20 21:13 Dose: 200 mg Documented by: Guaifenesin (Robitussin) 20 ml PO Q4H PRN PRN PRN Reason: COUGH Heparin Sodium (Porcine) (Heparin Na) 5,000 unit SC Q12 [facility] Last Admin: 04/18/20 12:54 Dose: Not Given Documented by: Hydralazine HCl (Apresoline Iv) 10 mg IV Q4H PRN PRN PRN Reason: SBP > 160 Last Admin: 04/16/20 04:10 Dose: 10 mg Documented by: Hydralazine HCl (Apresoline) 100 mg PO TID [facility] Isosorbide Mononitrate (Imdur) 30 mg PO TID [facility] Last Admin: 04/18/20 05:35 Dose: 30 mg Documented by: Losartan Potassium (Cozaar) 100 mg PO DAILY [facility] Last Admin: 04/18/20 12:55 Dose: 100 mg Documented by: Magnesium Hydroxide (Milk Of Magnesia) 30 ml PO DAILY PRN PRN PRN Reason: Constipation Last Admin: 04/17/20 07:45 Dose: 30 ml Documented by: Melatonin (Melatonin) 3 mg PO QHS PRN PRN PRN Reason: INSOMNIA Nutritional Formula (Nepro Carb Steady) 120 ml PO 4X/DAY [facility] Last Admin: 04/18/20 12:52 Dose: Not Given Documented by: Ondansetron HCl (Zofran) 4 mg IV Q8H PRN PRN PRN Reason: NAUSEA/VOMITING Last Admin: 04/18/20 00:38 Dose: 4 mg Documented [facility]: [facility] Last Admin: 04/18/20 09:25 Dose: Not Given Documented by: Prochlorperazine Edisylate (Compazine Iv) 5 mg IV Q4H PRN PRN PRN Reason: Breakthrough nausea/vomiting Last Admin: 04/18/20 09:44 Dose: 5 mg Documented by: Psyllium Hydrophilic Mucilloid (Metamucil) 1 packet PO DAILY PRN PRN PRN Reason: Constipation Last Admin: 04/16/20 11:50 Dose: 1 packet Documented by: Senna/Docusate Sodium (Senokot-S, Sneha-Colace) 2 tablet PO BID PRN PRN PRN Reason: Constipation Last Admin: 04/17/20 07:45 Dose: 2 tablet Documented by: Sevelamer Carbonate (Renvela) 800 mg PO DAILY [facility] Last Admin: 04/18/20 07:52 Dose: 800 mg Documented by: Sodium Chloride () 10 - 40 ml IV UD PRN PRN Reason: SALINE FLUSH Last Admin: 04/18/20 09:45 Dose: 10 ml Documented by: Throat Lozenges (Cepacol Sore Throat Lozenge) 1 lozenge MUCOUS MEM Q2H PRN PRN PRN Reason: SORE THROAT Discharge Diet: Low fat/ Low Cholesterol, 2000 mg Sodium Diet Discharge Activity: Return to Normal Activity Home Medications: Medications to take at Discharge amlodipine 10 mg tablet 10 mg PO DAILY 03/05/19 aspirin 81 mg tablet,delayed release 81 mg PO DAILY 03/05/19 sevelamer carbonate 800 mg tablet 800 mg PO DAILY tab 03/05/19 clonidine HCl 0.1 mg tablet 0.1 mg PO TID tab 03/23/19 prednisone 5 mg tablet 5 mg PO DAILY 05/25/19 Nitroglycerin 0.4 mg SL PRN PRN 06/10/19 gabapentin 100 mg capsule 100 mg PO 0600,1400 02/04/20 isosorbide mononitrate 60 mg tablet,extended release 24 hr 30 mg PO TID tab 02/04/20 telmisartan 40 mg tablet 40 mg PO DAILY #90 tab 02/04/20 Bumetanide 1 mg PO QODAY 04/14/20 Diltiazem CD [Cardizem CD] 120 mg PO DAILY 04/14/20 Gabapentin [Neurontin] 200 mg PO QHS 04/15/20 Acetaminophen [Tylenol Tablet] 650 mg PO Q6H PRN PRN tab 04/18/20 Albuterol Aerosols [Ventolin Aerosols] 2.5 mg INHALATION Q2H PRN PRN vial.neb. 04/18/20 Famotidine [Pepcid] 20 mg PO DAILY tab 04/18/20 Nepro Liquid [Nepro Carb Steady] 120 ml PO 4X/DAY liquid 04/18/20 hydrALAZINE [Apresoline] 100 mg PO TID tab 04/18/20 Primary Care Physician: Omar Short MD [Primary Care Provider] - Please follow up with your Primary Care Physician in: within 1-2 weeks Disposition: Jail facility Minutes spent on discharge:: 40 Patient Condition:: Stable Medical Necessity - Tobacco Use Smoking Status: Former smoker Tobacco Use: Non-smoker Meaningful Use Info Meaningful Use Diagnoses (Choose all that apply): None applicable Inpatient E&M: 55529 Disch Hosp
--- NOTE | 2020-04-18 14:20 | CASEMGMT ---
Addendum entered by Naty Saleem 04/18/20 15:05: CHUCK faxed completed discharge paperwork to [facility] including transfer to extended care facility, COVID screening tool, signed medication list and any scripts. Original in SNF folder and copy on pt's chart. CHUCK completed [facility] in [facility]. Original in SNF folder and copy on pt's chart. CHUCK spoke with RN, pt can transport via cot. CHUCK placed a call to [facility] and arranged transportation via cot for 4:00pm. Transportation form completed and placed on SNF folder and copy on pt's chart. CHUCK updated pt on discharge and transportation time. CHUCK placed a call to pt's Ryder and updated him on discharge and transportation time. CHUCK placed a call to Trupti at [facility] and updated her on transportation time. RN updated. Plan: [facility] skilled today with [facility] transporting pt via cot at 4:00pm Naty ROSA, ROSY Original Note: Social Work Note Pt is medically cleared for discharge today. CHUCK placed a call to Trupti at [facility] and updated her. SW to fax discharge paperwork once completed. Naty ROSA, TECHNICAL INSTRUCTOR
[2020-04-18] MEDS: hydrALAZINE 50 MG Tablet 100 MG PO (14:34)
[2020-04-18] MEDS: Gabapentin 100 MG Capsule PO (14:42)
[2020-04-18] MEDS: Nepro Liquid 120 ML LIQUID PO (14:42)
[2020-04-18] MEDS: HYDROcodone Bitartrate/Apap 5/325 Tablet PO (15:57)
== END 2020-04-18 16:05 | disposition skilled nursing facility (03) | DRG 551 ==
LOC: ED 17:19 → MS3 20:09
PROVIDERS: Student in an Organized Health Care Education/Training Program; Admitting Provider Family Medicine; Emergency Provider Emergency Medicine; PCP Family Medicine; Referring Provider Family Medicine; Visit Provider Internal Medicine
DX: M54.5 Low back pain (principal); E43 Unspecified severe protein-calorie malnutrition; N18.6 End stage renal disease; I13.11 Hypertensive heart and chronic kidney disease without heart failure, with stage 5 chronic kidney disease, or end stage renal disease; Z68.1 Body mass index [BMI] 19.9 or less, adult; G89.4 Chronic pain syndrome; R62.7 Adult failure to thrive; R29.6 Repeated falls; E11.22 Type 2 diabetes mellitus with diabetic chronic kidney disease; D63.1 Anemia in chronic kidney disease; Z99.2 Dependence on renal dialysis; I48.0 Paroxysmal atrial fibrillation; I27.20 Pulmonary hypertension, unspecified; E87.5 Hyperkalemia; I25.10 Atherosclerotic heart disease of native coronary artery without angina pectoris; J84.10 Pulmonary fibrosis, unspecified; M35.00 Sjogren syndrome, unspecified; J44.9 Chronic obstructive pulmonary disease, unspecified; S70.02XA Contusion of left hip, initial encounter; W19.XXXA Unspecified fall, initial encounter; M1A.9XX0 Chronic gout, unspecified, without tophus (tophi); E78.5 Hyperlipidemia, unspecified; M79.605 Pain in left leg; M79.604 Pain in right leg; K21.9 Gastro-esophageal reflux disease without esophagitis; F32.9 Major depressive disorder, single episode, unspecified; F41.9 Anxiety disorder, unspecified; Z79.82 Long term (current) use of aspirin; Z79.52 Long term (current) use of systemic steroids; Z79.899 Other long term (current) drug therapy; I25.2 Old myocardial infarction; Z87.891 Personal history of nicotine dependence; Z95.5 Presence of coronary angioplasty implant and graft
CPT/HCPCS: 36415; 71046; 71250; 72100; 73502; 73700; 80048; 80053; 80069; 81001; 82962; 83036; 83735; 84100; 84484; 85025; 87040; 87635; 90937; 93005; 94799; 97110; 97116; 97162; 97165; 97530; 97802; 99251; 99285; J7030; P9612; A4216; G0257; G0463; J2405; U0003

== ENCOUNTER → 2020-06-12 18:08 | Outpatient (CLI) | payer MEDICARE, BC, OTHER, SELFPAY ==
[2020-04-15 00:04] VITALS: BMI 18.9
== END ==
PROVIDERS: PCP Family Medicine
DX: Z11.59 Encounter for screening for other viral diseases (principal)
CPT/HCPCS: 87635; C9803; U0003